=== PATIENT | male | born 1975 | race Caucasian/White ===

== ENCOUNTER 2018-02-17 02:14 | Emergency (ER) | payer OTHER, SELFPAY ==
[2018-02-17 02:16] VITALS: BP 183/106; PULSE 61; RESP 16; TEMP 36.2; O2SAT 97; BMI 35.4
--- NOTE | 2018-02-17 02:17 | ED.RN ---
CALLED FOR EKG PER RN REQUEST, PULLED OLD EKG'S FOR
--- NOTE | 2018-02-17 02:35 | RAD_ITS ---
STUDY: X-RAY CHEST REASON FOR EXAM: Male, 42 years old. Chest pain. TECHNIQUE: Single AP portable view of the chest. COMPARISON: Prior comparison studies are not available for review at this time. FINDINGS: Cardiac monitoring leads are present. The lungs are expanded. There is mild prominence of bronchovascular markings. There is no demonstrated pleural abnormality. There is borderline cardiomegaly. Normal mediastinum and rosemarie. There is prominence of the pulmonary hilar arteries with peripheral pulmonary vascular congestion. Normal visualized aortic arch and descending thoracic aorta. There are diffuse degenerative changes of the visualized thoracic spine. There mild degenerative changes at the right acromioclavicular joint. There is no demonstrated abnormality of the visualized soft tissue structures of the upper abdomen. RAD/Chest 1 View (Portable) IMPRESSION: Borderline cardiomegaly and mild pulmonary congestion. Electronically Signed: Daisy Concepcion MD at 3:23 EDT , Service support ,
--- NOTE | 2018-02-17 02:35 | EKG12_ITS ---
Test Reason : CP Blood Pressure : / mmHG Vent. Rate : 062 BPM Atrial Rate : 062 BPM P-R Int : 116 ms QRS Dur : 106 ms QT Int : 406 ms P-R-T Axes : 043 072 053 degrees QTc Int : 412 ms Normal sinus rhythm Normal ECG Confirmed by RONAK LAMB, YEIMY ([id number]), senior editor JOSÉ GAGE ([id number]) on 02/19/2018 1:04:39 PM Referred By: CONRAD Confirmed By:YEIMY SIMONS MD
--- NOTE | 2018-02-17 02:38 | ED.DCSUM_ITS ---
- ER Visit Summary Date of Service: 02/17/18 Chief Complaint: [Chest pain] History of Present Illness: The patient is a 42 M [who presents the emergency department with chest pain. It started about an hour and half ago. He describes as a tightness in his epigastric region that spread up through his chest. Nothing makes it worse nothing makes it better no nausea or vomiting no shortness of breath no lightheadedness or dizziness. He has had the similar symptoms in the past with gastritis and was treated with a GI cocktail and got better. He denies any health problems. He does smoke. He ate a burger with jalapenos and alcohol for dinner.] Physical Examination: [] Blood pressure 183/106 other vitals within acceptable limits WN WD NAD PERRL EOMI MMM NECK supple and nontender, no masses RRR no murmur rub or gallop, no peripheral edema, symmetric radial pulses CTAB no respiratory distress ABDOMEN is soft mild tenderness to palpation in the epigastric region, normal bowel sounds, no distension, no rebound or guarding SKIN is warm and dry no rashes Alert and Oriented x3, CN II-XII in tact, no motor or sensory deficits, gait normal No lymphadenopathy Test Results: [] Emergency Department Course and Treatment: [Patient's EKG shows no acute process. He was given aspirin. He was given a GI cocktail. His pain did resolve. It was more consistent with epigastric abdominal pain rather than chest pain. He had similar pain several years ago and was seen in the emergency department got better with a GI cocktail the GI cocktail did help him today as well. He did have a leukocytosis at 15.2 looking back at his previous labs that he had a leukocytosis of 13.2 at that time. He has no right upper quadrant pain nothing to suggest acute cholecystitis and on reevaluation should his abdomen is completely nontender. Chest x-ray was unremarkable. Repeat troponin was obtained and was normal as well. At this time I do think he can be discharged on Prilosec. We discussed the fact that his heart was borderline enlarged and his blood pressure was quite high while he was here he understands the necessity of following up with his primary care doctor next week. He was given precautions for which to return including fever worsening abdominal pain right upper quadrant abdominal pain or other concerns. He is understands and is agreeable.] Treatment Plan: [] Disposition: [Discharge] Impression: [Epigastric abdominal pain] This note was generated with [employer] dictation software. It may contain incorrect words, spelling, and punctuation that were not noted in review of the chart prior to signing ED Disposition - Plan for ED Patient: Chief Complaint: Chest Pain Referrals: Jermaine Carey DO [Primary Care Provider] -
[2018-02-17] MEDS: Aspirin 81 MG TAB.CHEW 324 MG PO (02:40)
[2018-02-17 02:45] LABS: Absolute Lymphocyte Count 4.49 X10^3/ul (0.83-4.51); Absolute Neutrophil Count 9.1 X10^3/uL (2.0-7.7); Basophil# 0.04 X10^3/uL; Basophil% 0.3 % (0-1); Eosinophil# 0.28 X10^3/uL; Eosinophils% 1.8 % (0-5); Hematocrit 42.9 % (40-54); Hemoglobin 14.1 g/dl (13.0-16.5); Lymphocyte # 4.49 X10^3/ul (4.0); Lymphocyte % 29.5 % (19-41); Mean Corp Hgb Conc 32.9 g/gl (32-36); Mean Corpuscular Hgb 27.5 pg (27.0-32.0); Mean Corpuscular Volume 83.6 fL (80-94); Mean Platelet Vol. 9.6 fl (6.2-12.0); Monocyte# 1.28 X10^3/uL; Monocyte% 8.4 % (0-10); Neutrophil # 9.09 X10^3/uL (2.7-7.7); Neutrophil % 59.7 % (47-70); Platelet Count 342 K/mm3 (150-450); RBC Distribution Width SD 48.7 fl (35.1-43.9); Red Blood Count 5.13 M/mm3 (4.6-6.2); White Blood Count 15.2 K/mm3 (4.4-11.0)
[2018-02-17 02:58] LABS: AST(SGOT) 13 U/L (15-37); Alanine Aminotransfer ALT/SGPT 26 U/L (16-61); Alkaline Phosphatase 86 U/L (45-117); Anion Gap 3 (5-15); BUN 18 mg/dL (7-18); BUN/Creat Ratio 19.7 RATIO (10-20); Calcium,Total 8.7 mg/dL (8.5-10.1); Chloride 106 mmol/L (98-107); Creatinine, Serum 0.91 mg/dL (0.70-1.30); EST Glomerular Filtration Rate 97 mL/min (>60); Est Glom Filt Rate - Afr Amer 117 mL/min (>60); Estimated Creatinine Clearance 102.31 ml/min; Globulin 4.1 g/dL (2.2-4.2); Glucose 127 mg/dL (74-106); Lipase 256 U/L (73-393); Potassium 3.6 mmol/L (3.5-5.1); Protein, Total 8.1 g/dL (6.4-8.2); Sodium Level 139 mmol/L (136-145)
[2018-02-17 03:03] LABS: POSITIVE COUNT NO; POSITIVE DIFFERENTIAL NO; POSITIVE MORPHOLOGY NO
[2018-02-17 03:32] VITALS: BP 173/82; PULSE 58; RESP 20; O2SAT 95
[2018-02-17] MEDS: Famotidine 20 MG Tablet 40 MG PO (04:33)
[2018-02-17 04:37] VITALS: BP 167/81; PULSE 66; RESP 18; O2SAT 96
[2018-02-17 05:25] VITALS: BP 136/82; PULSE 59; RESP 17; O2SAT 95
--- NOTE | 2018-02-17 05:25 | ED.DEP ---
ED Disposition - Plan for ED Patient: Chief Complaint: Chest Pain Instructions: What Is High Blood Pressure?, Your High Blood Pressure Risk Factors, ED Epigastric Pain [facility] Prescriptions: Omeprazole/Sodium Bicarbonate [Omeprazole-Bicarb 20-1,100 Cap] 1 each PO DAILY #30 capsule Referrals: Jermaine Carey DO [Primary Care Provider] - 3-5 Days
--- NOTE | 2018-02-17 05:29 | DCINST.ED_ITS ---
ED Disposition - Plan for ED Patient: Chief Complaint: Chest Pain Instructions: What Is High Blood Pressure?, Your High Blood Pressure Risk Factors, ED Epigastric Pain [facility] Prescriptions: Omeprazole/Sodium Bicarbonate [Omeprazole-Bicarb 20-1,100 Cap] 1 each PO DAILY # 30 capsule Referrals: Jermaine Carey DO [Primary Care Provider] - 3-5 Days
== END 2018-02-17 05:31 | disposition home or self-care (01) ==
PROVIDERS: Emergency Provider Emergency Medicine; Family Provider Family Medicine; PCP Family Medicine
DX: R10.13 Epigastric pain (principal); I10 Essential (primary) hypertension; E66.9 Obesity, unspecified; Z72.0 Tobacco use; Z79.899 Other long term (current) drug therapy; Z87.19 Personal history of other diseases of the digestive system
CPT/HCPCS: 71045; 80053; 83690; 84484; 85025; 93005; 99284; A4216

== ENCOUNTER 2018-12-11 18:08 | Emergency (ER) | payer OTHER, SELFPAY ==
[2018-12-11 18:09] VITALS: BP 168/84; PULSE 78; RESP 16; TEMP 36.3; O2SAT 98; BMI 34.9
--- NOTE | 2018-12-11 18:25 | EKG12_ITS ---
Test Reason : CP Blood Pressure : / mmHG Vent. Rate : 063 BPM Atrial Rate : 063 BPM P-R Int : 122 ms QRS Dur : 106 ms QT Int : 424 ms P-R-T Axes : 073 081 072 degrees QTc Int : 433 ms Normal sinus rhythm Normal ECG Confirmed by MICHELLE HARTMAN ([id number]), continuity editor JOSÉ GAGE ([id number]) on 12/16/2018 2:48:36 PM Referred By: CHAVEZ Confirmed By:GAUDENCIO HARTMAN
--- NOTE | 2018-12-11 18:30 | RAD_ITS ---
STUDY: X-RAY CHEST REASON FOR EXAM: Male, 43 years old. Chest pain since this a.m. TECHNIQUE: Single frontal view of the chest. COMPARISON: February 17, 2018. FINDINGS: There is a vague opacity within the right lower lung. Normal size heart. Normal mediastinum and rosemarie. Normal visualized pulmonary arteries. Normal visualized aortic arch and descending thoracic aorta. There are diffuse degenerative changes of the visualized thoracic spine. Normal visualized ribs, clavicles, and shoulders. There is no demonstrated abnormality of the visualized soft tissue structures of the upper abdomen. RAD/Chest 1 View (Portable) IMPRESSION: Vague opacity within the right lower lung, may be secondary to a confluence of shadows however cannot exclude underlying atelectasis and/or evolving pneumonia. Electronically Signed: Steph Lemons MD at 18:50 EDT Tel , Service support ,
[2018-12-11 18:32] VITALS: O2SAT 98
[2018-12-11] MEDS: Mag Hydrox/Al Hydrox/Simeth 30 ML UDC PO (18:40)
[2018-12-11 18:48] LABS: Absolute Lymphocyte Count 1.47 X10^3/ul (0.83-4.51); Absolute Neutrophil Count 16.3 X10^3/uL (2.0-7.7); Basophil# 0.01 X10^3/uL; Basophil% 0.1 % (0-1); Hematocrit 42.6 % (40-54); Hemoglobin 14.1 g/dl (13.0-16.5); Lymphocyte # 1.47 X10^3/ul (4.0); Lymphocyte % 7.7 % (19-41); Mean Corp Hgb Conc 33.1 g/gl (32-36); Mean Corpuscular Hgb 26.1 pg (27.0-32.0); Mean Corpuscular Volume 78.9 fL (80-94); Mean Platelet Vol. 9.3 fl (6.2-12.0); Monocyte# 1.18 X10^3/uL; Monocyte% 6.2 % (0-10); Neutrophil # 16.34 X10^3/uL (2.7-7.7); Neutrophil % 85.8 % (47-70); Platelet Count 335 K/mm3 (150-450); RBC Distribution Width CV 14.9 % (11.6-14.6)
[2018-12-11 18:49] LABS: POSITIVE COUNT NO; POSITIVE DIFFERENTIAL NO; POSITIVE MORPHOLOGY NO
[2018-12-11 19:08] LABS: ALB/GLOB Ratio 1.1 RATIO (0.9-2.4); AST(SGOT) 51 U/L (15-37); Alanine Aminotransfer ALT/SGPT 36 U/L (16-61); Alkaline Phosphatase 86 U/L (45-117); Anion Gap 5 (5-15); BUN 13 mg/dL (7-18); BUN/Creat Ratio 16.8 RATIO (10-20); Calcium,Total 8.7 mg/dL (8.5-10.1); Chloride 101 mmol/L (98-107); Creatinine, Serum 0.78 mg/dL (0.70-1.30); EST Glomerular Filtration Rate 116 mL/min (>60); Est Glom Filt Rate - Afr Amer 141 mL/min (>60); Estimated Creatinine Clearance 118.14 ml/min; Globulin 3.7 g/dL (2.2-4.2); Glucose 116 mg/dL (74-106); Lipase 165 U/L (73-393); Potassium 3.9 mmol/L (3.5-5.1); Protein, Total 7.7 g/dL (6.4-8.2); Sodium Level 135 mmol/L (136-145)
--- NOTE | 2018-12-11 19:52 | ED.VISSUMM ---
- ER Visit Summary Date of Service: 12/11/18 Chief Complaint: Chest pain History of Present Illness: The patient is a 43 M who presents with chest pain that started this morning when he woke up. It is substernal and epigastric. He says he had this before. He was seen in the ED and treated with a GI cocktail and his symptoms improved. He was prescribed Nexium for reflux. He has not been compliant with his meds as he ran out. Patient denies any respiratory symptoms, cough, sputum, shortness of breath. Denies fevers, chills, or sweats. Denies lightheadedness. Denies neurologic symptoms like weakness, numbness, vision changes, facial droop. Denies any masses or history of aortic disease. Denies any history of blood clots. Denies any history of heart disease or heart attack. History of smoking, alcohol use, and prior methamphetamine use. Physical Examination: Blood pressure 168/84. Otherwise vitals unremarkable. Afebrile. Patient appears uncomfortable but not toxic or in distress. Cranial nerves grossly intact. Moves all extremities. Good pulses. Extremities nontender with no edema. Abdomen is tender in the epigastric region. No masses. Heart regular. Lungs clear. Test Results: EKG showed sinus rhythm at a rate of 63. Troponin normal. White count 19, it was previously 15. He said it is normally elevated. Sodium 135 and glucose 116. Liver panel and lipase normal. Chest x-ray showed a vague opacity in the right lower lobe which might be a shadow or evolving atelectasis or pneumonia. Patient is not having any respiratory symptoms or findings. I have no suspicion for pneumonia. Emergency Department Course and Treatment: Patient was treated with a GI cocktail as this has worked in the past. His symptoms had almost completely resolved. He also was treated with famotidine. I suspect this is gastritis or reflux. There is nothing on exam to suggest cardiac or respiratory pathology. Nothing to suggest vascular pathology based on his findings. Patient was advised that he needs to follow-up regarding his chronic issues and his leukocytosis. He voiced understanding and agreement. He was also advised of the risk factors of smoking and stimulant drug use. Treatment Plan: As above Disposition: Discharge Impression: 1. Epigastric pain This note was generated with [employer] software. It may contain incorrect words, spelling, and punctuation that were not noted in review of the chart prior to signing ED Disposition - Plan for ED Patient: Referrals: Jermaine Carey DO [Primary Care Provider] -
--- NOTE | 2018-12-11 19:56 | ED.DEP ---
ED Disposition - Plan for ED Patient: Instructions: ED Epigastric Pain [facility] Prescriptions: Esomeprazole Magnesium [Nexium 24Hr] 20 mg PO DAILY #30 capsule. Referrals: Mai Carranza [NON-STAFF] -
[2018-12-11] MEDS: Famotidine 20 MG Tablet 40 MG PO (20:19)
[2018-12-11 20:21] VITALS: BP 151/67; PULSE 67; RESP 18; O2SAT 97
== END 2018-12-11 20:22 | disposition home or self-care (01) ==
PROVIDERS: Emergency Provider Emergency Medicine; Family Provider Family Medicine; PCP Family Medicine
DX: R10.13 Epigastric pain (principal); K21.9 Gastro-esophageal reflux disease without esophagitis; Z91.14 Patient's other noncompliance with medication regimen; Z72.0 Tobacco use; Z79.899 Other long term (current) drug therapy
CPT/HCPCS: 71045; 80053; 83690; 84484; 85025; 93005; 99285; A4216

== ENCOUNTER 2020-10-13 04:54 | Inpatient (IN) | payer OTHER, SELFPAY ==
[2020-10-13] VITALS (7 sets, daily range): BP systolic 120–167; BP diastolic 87–116; PULSE 18–105; RESP 16–18; TEMP 35.7–37.3; O2SAT 94–100; BMI 31.1; BMI 31.3
--- NOTE | 2020-10-13 05:04 | CT_ITS ---
STUDY: CT ABDOMEN AND PELVIS WITH CONTRAST REASON FOR EXAM: Male, 44 years old. abdominal pain diarrhea ?diverticulitis RADIATION DOSAGE (If Supplied By Facility): CTDIvol = ( 17.11 ) mGy, DLP = ( 1063.11 ) mGycm TECHNIQUE: Transaxial images were obtained from the dome of the diaphragm to the symphysis pubis without oral contrast. IV 100mL Isovue-300 was administered. Sagittal and coronal images were reconstructed. Individualized dose optimization techniques were used for this CT. COMPARISON: None. FINDINGS: The visualized lung bases are unremarkable. The visualized portions of the heart are within normal limits. Normal liver. Normal gallbladder and extrahepatic biliary system. Normal spleen. Normal pancreas. Normal bilateral adrenal glands. Normal right kidney. Normal left kidney. Normal visualized stomach. Multiple dilated loops of small bowel within the central abdomen. Some more normal-appearing distal loops of small bowel. Unsure if this represents early small bowel obstruction versus ileus. Normal colon. The appendix is visualized and appears normal. Normal abdominal aorta. Normal inferior vena cava. Normal retroperitoneum. Normal urinary bladder. Unremarkable prostate Normal abdominal wall. Normal osseous structures. CT/Abdomen/Pelvis W IV Cont ONLY IMPRESSION: Multiple dilated loops of small bowel within the central abdomen. Some more normal-appearing distal loops of small bowel. Findings are concerning for developing small bowel obstruction. No evidence of diverticulitis. Normal appendix. Electronically Signed: Juan Carlos Arreola DO at 6:32 EDT Tel , Service support ,
--- NOTE | 2020-10-13 05:05 | ED.DCSUM_ITS ---
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 The diarrhea has just about resolved now. He notes more nausea but no vomiting. He was able to go to work yesterday but tonight bending over at work was too painful. He denies any bloody stools. He notes a history of diverticulitis 1 time about 8 years ago. No prior abdominal surgeries. No history of pancreatitis. He notes nausea and episode of vomiting. He states the diarrhea was not mucousy. He believes he has had fever as he gets really hot and sweaty at times. A bad food exposure travel or recent antibiotics. He describes the pain is crampy in most of his pain is in the epigastrium and left lower side of his abdomen Past Medical History - Allergies and Home Meds Allergies/Adverse Reactions: Allergies No Known Allergies Allergy (Verified 10/13/20 04:57) Primary Care Physician: NOT,DEFINED [NON-STAFF] - Past Medical History: - - Diverticulitis Surgical History: noncontributory Smoking Status: Current every day smoker Drugs: None Review of Systems General: Denies: Chills, Fever, Sweats Eyes: Denies: Visual changes - bilaterally, Diplopia ENT: Denies: Rhinorrhea, Sore throat Cardiovascular: Denies: Chest pain, Palpitations Respiratory: Denies: Dyspnea, Cough, Dyspnea on exertion Gastrointestinal: Reports: Abdominal pain, Nausea, Vomiting, Diarrhea. Denies: Melena, Hematochezia Genitourinary: Denies: Dysuria, Hematuria, Frequency Musculoskeletal: Denies: Back pain, Extremity Pain Skin: Denies: Rash, Wounds Neurological: Denies: Headache, Weakness, Numbness Physical Exam Vital Signs/Narrative: Vital Signs Temp Pulse Resp BP Pulse Ox 10/13/20 04:54 96.2 F L 86 18 143/94 H 98 Inital Vital Signs reviewed: Yes General: Well nourished, Well developed, No Acute Distress Head: Normocephalic, Atraumatic Eyes: Perrl, EOMI ENT: Moist mucous membranes, No rhinorrhea Neck: Supple, Nontender Cardiovascular: Regular rate, Regular rhythm, No murmurs Respiratory: No distress, CTA bilaterally, Chest nontender Abdomen: Soft, Nondistended, Normal bowel sounds, Tender - Diffusely but most pronounced in the left lower quadrant and epigastrium, Guarding, Hypoactive bowel sounds Back: Nontender, Normal Inspection Extremities: Nontender, No edema Skin: Normal color, No rash Neurological: Alert, Oriented x3, Cranial nerves II-XII grossly intact, Normal Strength, Normal Sensation Psychological: Normal affect, Normal Mood Diagnostic/Tx/Re-eval Clinical Impression(s) from Imaging Studies Abdomen/Pelvis CT 10/13/20 05:04 IMPRESSION: Multiple dilated loops of small bowel within the central abdomen. Some more normal-appearing distal loops of small bowel. Findings are concerning for developing small bowel obstruction. No evidence of diverticulitis. Normal appendix. Electronically Signed: Juan Carlos Arreola DO at 6:32 EDT Tel , Service support , Laboratory Last Values WBC 11.7 K/mm3 (4.4-11.0) H 10/13/20 05:04 RBC 6.15 M/mm3 (4.6-6.2) 10/13/20 05:04 Hgb 16.0 g/dL (13.0-16.5) 10/13/20 05:04 Hct 50.6 % (40-54) 10/13/20 05:04 MCV 82.3 fL (80-94) 10/13/20 05:04 MCH 26.0 pg (27.0-32.0) L 10/13/20 05:04 MCHC 31.6 g/dL (32-36) L 10/13/20 05:04 RDW Std Deviation 45.7 fl (35.1-43.9) H 10/13/20 05:04 RDW Coeff of King 15.2 % (11.6-14.6) H 10/13/20 05:04 Plt Count 354 K/mm3 (150-450) 10/13/20 05:04 MPV 8.7 fl (6.2-12.0) 10/13/20 05:04 Immature Gran % (Auto) 0.300 % (0.0-0.9) 10/13/20 05:04 Neut % (Auto) 74.7 % (47-70) H 10/13/20 05:04 Lymph % (Auto) 15.7 % (19-41) L 10/13/20 05:04 [place] % (Auto) 8.4 % (0-10) 10/13/20 05:04 Eos % (Auto) 0.6 % (0-5) 10/13/20 05:04 Baso % (Auto) 0.3 % (0-1) 10/13/20 05:04 Absolute Neuts (auto) 8.7 X10^3/uL (2.0-7.7) H 10/13/20 05:04 Absolute Lymphs (auto) 1.83 X10^3/uL (0.83-4.51) 10/13/20 05:04 Nucleated RBC % 0 % (0-5) 10/13/20 05:04 Sodium 135 mmol/L (136-145) L 10/13/20 05:04 Potassium 4.1 mmol/L (3.5-5.1) 10/13/20 05:04 Chloride 101 mmol/L (98-107) 10/13/20 05:04 Carbon Dioxide 31.0 mmol/L (21.0-32.0) 10/13/20 05:04 Anion Gap 3 (5-15) L 10/13/20 05:04 BUN 15 mg/dL (7-18) 10/13/20 05:04 Creatinine 0.93 mg/dL (0.70-1.30) 10/13/20 05:04 Estim Creat Clear Calc 98.06 ml/min 10/13/20 05:04 Est GFR (MDRD) Af Amer 113 mL/min (>60) 10/13/20 05:04 Est GFR (MDRD) Non-Af 94 mL/min (>60) 10/13/20 05:04 BUN/Creatinine Ratio 16.1 RATIO (10-20) 10/13/20 05:04 Glucose 112 mg/dL (74-106) H 10/13/20 05:04 Lactic Acid 0.8 mmol/L (0.4-1.9) 10/13/20 05:04 Calcium 9.0 mg/dL (8.5-10.1) 10/13/20 05:04 Total Bilirubin 0.50 mg/dL (0.20-1.00) 10/13/20 05:04 AST 15 U/L (15-37) 10/13/20 05:04 ALT 32 U/L (16-61) 10/13/20 05:04 Alkaline Phosphatase 84 U/L (45-117) 10/13/20 05:04 Total Protein 8.1 g/dL (6.4-8.2) 10/13/20 05:04 Albumin 3.6 g/dL (3.2-5.0) 10/13/20 05:04 Globulin 4.5 g/dL (2.2-4.2) H 10/13/20 05:04 Albumin/Globulin Ratio 0.8 RATIO (0.9-2.4) L 10/13/20 05:04 Lipase 80 U/L (73-393) 10/13/20 05:04 - Medical Decision Making White count slightly elevated at 11.7. Lactic acid is normal. Patient received IV fluids morphine and Zofran. CT down pelvis with IV contrast was obtained. This demonstrates my review acute small bowel obstruction with a probable transition point in the lower abdomen near the sigmoid colon. Question scar tissue from prior diverticulitis. I also have a concerned that perhaps he has a mild case of sigmoid diverticulitis. Case was discussed with our on-call surgeon Dr. Mcleod. NG tube will be placed and the patient will be given Zosyn. Plan will be admission. ED Disposition - Plan for ED Patient: Disposition: Acute Care Hospital [facility] Diagnosis: Small bowel obstruction, Diverticulitis Referrals: NOT,DEFINED [NON-STAFF] -
[2020-10-13 05:11] LABS: Absolute Lymphocyte Count 1.83 X10^3/uL (0.83-4.51); Absolute Neutrophil Count 8.7 X10^3/uL (2.0-7.7); Basophil# 0.03 X10^3/uL; Basophil% 0.3 % (0-1); Eosinophil# 0.07 X10^3/uL; Eosinophils% 0.6 % (0-5); Hematocrit 50.6 % (40-54); Lymphocyte # 1.83 X10^3/ul (4.0); Lymphocyte % 15.7 % (19-41); Mean Corp Hgb Conc 31.6 g/dL (32-36); Mean Corpuscular Volume 82.3 fL (80-94); Mean Platelet Vol. 8.7 fl (6.2-12.0); Monocyte# 0.98 X10^3/uL; Monocyte% 8.4 % (0-10); NRBC Flagged by Analyzer 0 % (0-5); Neutrophil # 8.73 X10^3/uL (2.7-7.7); Neutrophil % 74.7 % (47-70); Platelet Count 354 K/mm3 (150-450); RBC Distribution Width CV 15.2 % (11.6-14.6); RBC Distribution Width SD 45.7 fl (35.1-43.9); Red Blood Count 6.15 M/mm3 (4.6-6.2); White Blood Count 11.7 K/mm3 (4.4-11.0)
[2020-10-13] MEDS: 0.9% Normal Saline 1,000 ML 1000 ML IV (05:12)
[2020-10-13] MEDS: Morphine 4 MG/ML Syringe IV (05:13)
[2020-10-13] MEDS: Ondansetron 4 MG/2 ML Vial IV (05:13)
[2020-10-13 05:27] LABS: ALB/GLOB Ratio 0.8 RATIO (0.9-2.4); AST(SGOT) 15 U/L (15-37); Alanine Aminotransfer ALT/SGPT 32 U/L (16-61); Albumin, Serum 3.6 g/dL (3.2-5.0); Alkaline Phosphatase 84 U/L (45-117); Anion Gap 3 (5-15); BUN 15 mg/dL (7-18); BUN/Creat Ratio 16.1 RATIO (10-20); Chloride 101 mmol/L (98-107); Creatinine, Serum 0.93 mg/dL (0.70-1.30); EST Glomerular Filtration Rate 94 mL/min (>60); Est Glom Filt Rate - Afr Amer 113 mL/min (>60); Estimated Creatinine Clearance 98.06 ml/min; Globulin 4.5 g/dL (2.2-4.2); Glucose 112 mg/dL (74-106); Lipase 80 U/L (73-393); Potassium 4.1 mmol/L (3.5-5.1); Protein, Total 8.1 g/dL (6.4-8.2); Sodium Level 135 mmol/L (136-145)
--- NOTE | 2020-10-13 05:40 | ED.RN ---
Patient reports he last ate AND drank approx 1 hour ago.
[2020-10-13 05:55] LABS: Lactic Acid 0.8 mmol/L (0.4-1.9)
--- NOTE | 2020-10-13 06:52 | RAD_ITS ---
STUDY: X-RAY - ABDOMEN/PELVIS REASON FOR EXAM: Male, 44 years old. NG Insertion TECHNIQUE: Single AP view of the abdomen / pelvis. COMPARISON: None. FINDINGS: Normal visualized lung bases. The tip of the nasogastric tube is in the fundal portion of the stomach. There are dilated loops of the small intestine with a non-distended colon consistent with a small bowel obstruction. The visualized liver, spleen and kidneys are grossly normal in size and morphology. Normal soft tissue structures. Normal visualized osseous structures. RAD/Abdomen Single View (Portable) IMPRESSION: The tip of the nasogastric tube is in the fundal portion of the stomach. Evidence of small bowel obstruction. Electronically Signed: Jan Donahue MD at 8:19 EDT , Service support ,
--- NOTE | 2020-10-13 06:53 | NURSING ---
med surg sbo diverticulitis ele
[2020-10-13] MEDS: Lidocaine 4% 5 ML Ampul 2 ML INHALATION (07:13)
[2020-10-13] MEDS: Oxymetazoline 0.05% 1 SPRAY SPRAY.BTL 2 SPRAY NASAL (07:18)
--- NOTE | 2020-10-13 07:30 | PCM.HP.STD ---
Problem List (1) Small bowel obstruction Status: Acute History of Present Illness Date of Admission: 10/13/20 Chief Complaint: Abdominal pain The patient is a 44 year old M presented to the emergency room with pain since yesterday. He reports the pain is diffuse and in his upper abdomen. Patient reports he is not passing flatus. He is not having any vomiting. Patient does have a history of diverticulitis. Patient has no surgical history. Past Medical History Allergies No Known Allergies Allergy (Verified 10/13/20 04:57) Home Medications: Ambulatory Orders Medication Instructions Recorded NK 10/13/20 Surgical History: noncontributory Smoking Status: Current every day smoker Drugs: None - *Family History Maternal History Items: No pertinent history Review of Systems Constitutional: Denies: Anorexia, Fever HEENT: Denies: Difficulty Swallowing Cardiovascular: Denies: Chest Pain Respiratory: Denies: Cough, Shortness of Breath Gastrointestinal: Reports: Abdominal Pain, Nausea. Denies: Hematemesis, Hematochezia, Vomiting Genitourinary: Denies: Dysuria, Frequency Hematologic/ Lymphatic: Denies: Anemia VTE Information - Inpt Only VTE Present on Admission: No VTE Mechan Device Prophylaxis: SCD's - Physical Exam Vitals/I&O's: Vital Signs Temp Pulse Resp BP Pulse Ox 97.7 F L 97 18 144/89 H 100 10/13/20 07:19 10/13/20 07:19 10/13/20 07:19 10/13/20 07:19 10/13/20 07:19 Oxygen Delivery Method Room Air Weight: 204 lb 12.951 oz Body Mass Index (BMI) 31.1 Intake and Output for Last 24 Hours 10/11/20 10/12/20 10/13/20 23:59 23:59 23:59 Intake Total 1000 / 1000 Balance 1000 / 1000 General: Alert, Oriented x3 Neck: No JVD Lungs: Normal air movement Cardiovascular: Regular rate, Regular Rhythm Abdomen: Soft, Distended, Tender - Diffusely mildly tender with no guarding or rebound Musculoskeletal: No Muscle Wasting Neurological: Cranial nerves II-XII grossly intact Psych/Mental Status: Normal Affect Laboratory Results 10/13/20 05:04: WBC 11.7 H, RBC 6.15, Hgb 16.0, Hct 50.6, MCV 82.3, MCH 26.0 L, MCHC 31.6 L, RDW Std Deviation 45.7 H, RDW Coeff of King 15.2 H, Plt Count 354, MPV 8.7, Immature Gran % (Auto) 0.300, Neut % (Auto) 74.7 H, Lymph % (Auto) 15.7 L, [place] % (Auto) 8.4, Eos % (Auto) 0.6, Baso % (Auto) 0.3, Absolute Neuts (auto) 8.7 H, Absolute Lymphs (auto) 1.83, Nucleated RBC % 0 10/13/20 05:04: Sodium 135 L, Potassium 4.1, Chloride 101, Carbon Dioxide 31.0, Anion Gap 3 L, BUN 15, Creatinine 0.93, Estim Creat Clear Calc 98.06, Est GFR (MDRD) Af Amer 113, Est GFR (MDRD) Non-Af 94, BUN/Creatinine Ratio 16.1, Glucose 112 H, Calcium 9.0, Total Bilirubin 0.50, AST 15, ALT 32, Alkaline Phosphatase 84, Total Protein 8.1, Albumin 3.6, Globulin 4.5 H, Albumin/Globulin Ratio 0.8 L, Lipase 80 10/13/20 05:04: Lactic Acid 0.8 Clinical Impression(s) from Imaging Studies Abdomen/Pelvis CT 10/13/20 05:04 IMPRESSION: Multiple dilated loops of small bowel within the central abdomen. Some more normal-appearing distal loops of small bowel. Findings are concerning for developing small bowel obstruction. No evidence of diverticulitis. Normal appendix. Electronically Signed: Juan Carlos Arreola DO at 6:32 EDT Tel , Service support , Current Medications Sodium Chloride () 1,000 mls @ 125 mls/hr IV .Q8H JOB Pantoprazole Sodium 40 mg/ (Sodium Chloride) 110 mls @ 330 mls/hr IV Q24 JOB Piperacillin Sod/Tazobactam (Sod 3.375 gm/ Sodium Chloride) 50 mls @ 12.5 mls/hr IV Q8 JOB Morphine Sulfate (Morphine 2 Mg/Ml Syringe) 2 - 4 mg IV Q2H PRN PRN PRN Reason: Pain Score 4-10 Ondansetron HCl (Ondansetron 4 Mg/2 Ml Vial) 4 mg IV Q6H PRN PRN PRN Reason: NAUSEA Assessment/Plan All Active Problems Small bowel obstruction (Acute) Diverticulitis (Acute) 44-year-old male with small bowel obstruction. The patient has a mildly elevated white count and nausea and distention abdominal pain. CT revealed multiple loops of distended small bowel. After review the CT scan does appear there may be some mild stranding around the sigmoid colon and then transition point of the small bowel is in the right lower quadrant. This loop of small bowel appears to be in close proximity to the sigmoid colon. It is possible that the patient has diverticulitis and the inflammation of the sigmoid is causing tension on the small bowel causing this partial to full small bowel obstruction. I am having the ER placed an NG tube and for decompression and I will start the patient on Zosyn. I will admit him to the floor for observation and continue NG suctioning. If the patient is feeling better I will try a small bowel follow-through tomorrow morning and if this is not passed through the colon I will perform an exploratory laparoscopy tomorrow afternoon. This was discussed with the patient and the patient is in agreement with the plan. Latrell Mcleod MD Pager: [facility] [address] [place] [address], [address] [place] [address] Office:
--- NOTE | 2020-10-13 07:51 | ED.RN ---
PT X-RAY COMPLETED. REVIEWED BY DR CONRAD AT BEDSIDE. REPORTS TO WITHDRAW NG APPROXIMATELY 5 CM. ORDERS FOLLOWED. NG WITHDRAWN 5 CM. RESECURED WITH NASAL SECURING DEVICE. PT TOLERATED WELL. NG CONTINUES TO DRAIN GREENISH/BROWN CONTENTS.
[2020-10-13] MEDS: 0.9% Normal Saline 1,000 ML 125 ML IV ×3 (08:36→21:51)
[2020-10-13] MEDS: Morphine 2 MG/ML Syringe IV ×2 (08:37→21:48)
--- NOTE | 2020-10-13 11:52 | NURSING ---
PT RESTING QUIETLY IN BED WITH EYES CLOSED, RESP EASY
--- NOTE | 2020-10-13 12:08 | NURSING ---
Nito NUÑEZ PHONED IN FOR UPDATE ON PT
--- NOTE | 2020-10-13 13:00 | CASEMGMT ---
ALLY DAVIS assessment: Face to Face with pt for initial transition planning/care coordination assessment. ALLY DAVIS introduced self and role at [facility], pt voices understanding and consents to assessment. Pt laying in bed with eyes closed throughout assessment. Pt is A/O x4 and answers all questions appropriately at this time. Care providers, pharmacy, and demographics verified/updated. Admitting dx: SBO PCP: Pt does currently have a PCP. PCP directory given to pt. Specialists: Pt denies having specialists. Preferred Pharmacy: [facility] Insurance: MMO Presciption Benefit: yes LW/HPOA: Pt states he does not have and denies need for information regarding AD. LNOK: mother Sangita Kaufman Living Arrangements: Pt lives in a home with his mother. Denies any concerns at home. Transportation: Pt drives self and denies concerns with transportation. DME/HHC: Pt denies having any DME at home. Pt has not had HHC in the past. Pt states no further concerns/needs. CM to follow any further dc planning/needs. Advised pt to ask CM if any further question/concerns/needs arise, voices understanding. Pt goal: Home Plan: Home with family support and fu plans in place.
[2020-10-13] MEDS: BENZOCAINE/MENTHOL 1 LOZENGE 2 LOZENGE MUCOUS MEM (21:34)
[2020-10-13] MEDS: 0.9% Saline Lock 10 ML Syringe IV (21:48)
[2020-10-14] VITALS (11 sets, daily range): BP systolic 136–151; BP diastolic 77–99; PULSE 65–111; RESP 16–18; TEMP 36.1–36.9; O2SAT 94–97; BMI 31.3
[2020-10-14] MEDS: BENZOCAINE/MENTHOL 1 LOZENGE 2 LOZENGE MUCOUS MEM ×3 (00:55→21:45)
[2020-10-14] MEDS: Morphine 2 MG/ML Syringe IV ×3 (02:08→21:45)
[2020-10-14] MEDS: 0.9% Normal Saline 1,000 ML 125 ML IV ×3 (05:44→21:44)
[2020-10-14] MEDS: 0.9% Saline Lock 10 ML Syringe IV ×4 (05:45→21:44)
[2020-10-14 07:04] LABS: Absolute Lymphocyte Count 2.16 X10^3/uL (0.83-4.51); Absolute Neutrophil Count 6.5 X10^3/uL (2.0-7.7); Basophil# 0.03 X10^3/uL; Basophil% 0.3 % (0-1); Eosinophil# 0.08 X10^3/uL; Eosinophils% 0.8 % (0-5); Hematocrit 45.5 % (40-54); Hemoglobin 14.2 g/dL (13.0-16.5); Lymphocyte # 2.16 X10^3/ul (4.0); Lymphocyte % 22.4 % (19-41); Mean Corp Hgb Conc 31.2 g/dL (32-36); Mean Corpuscular Hgb 25.7 pg (27.0-32.0); Mean Corpuscular Volume 82.4 fL (80-94); Mean Platelet Vol. 9.1 fl (6.2-12.0); Monocyte# 0.87 X10^3/uL; NRBC Flagged by Analyzer 0 % (0-5); Neutrophil % 67.3 % (47-70); Platelet Count 322 K/mm3 (150-450); RBC Distribution Width CV 15.1 % (11.6-14.6); RBC Distribution Width SD 45.8 fl (35.1-43.9); Red Blood Count 5.52 M/mm3 (4.6-6.2); White Blood Count 9.7 K/mm3 (4.4-11.0)
--- NOTE | 2020-10-14 07:22 | PN.SURG_ITS ---
Patient Problems: Active and Suspected Problems Small bowel obstruction (Acute) Subjective: Patient reports no abdominal pain and he is passing flatus. - Physical Exam Vitals/I&O's: Vital Signs Temp Pulse Resp BP Pulse Ox 97.1 F L 87 18 136/77 H 97 10/14/20 01:57 10/14/20 01:57 10/14/20 01:57 10/14/20 01:57 10/14/20 01:57 Oxygen Delivery Method Room Air Weight: 205 lb 15.999 oz Body Mass Index (BMI) 31.3 Intake and Output for Last 24 Hours 10/12/20 10/13/20 10/14/20 23:59 23:59 23:59 Intake Total 3546.25 / 3546.25 1185.42 / 1185.42 Output Total 2059 / 2059 800 / 800 Balance 1486.25 / 1486.25 385.42 / 385.42 General: Alert, Oriented x3 Neck: No JVD Lungs: Normal air movement Abdomen: Soft, Non Tender, Non-Distended Microbiology Past 72 Hours 10/13/20 07:30 Mucosa - Nose SARS-CoV-2 Antigen (Rapid) - Final Laboratory Results 10/14/20 05:55: WBC 9.7, RBC 5.52, Hgb 14.2, Hct 45.5, MCV 82.4, MCH 25.7 L, MCHC 31.2 L, RDW Std Deviation 45.8 H, RDW Coeff of King 15.1 H, Plt Count 322, MPV 9.1, Immature Gran % (Auto) 0.200, Neut % (Auto) 67.3, Lymph % (Auto) 22.4, [place] % (Auto) 9.0, Eos % (Auto) 0.8, Baso % (Auto) 0.3, Absolute Neuts (auto) 6.5, Absolute Lymphs (auto) 2.16, Nucleated RBC % 0 10/14/20 05:55: Sodium Pending, Potassium Pending, Chloride Pending, Carbon Dioxide Pending, Anion Gap Pending, BUN Pending, Creatinine Pending, Est GFR (MDRD) Af Amer Pending, Est GFR (MDRD) Non-Af Pending, BUN/Creatinine Ratio Pending, Glucose Pending, Calcium Pending Current Medications Sodium Chloride () 1,000 mls @ 125 mls/hr IV .Q8H JOB Last Admin: 10/14/20 05:44 Dose: 125 mls/hr Documented by: Pantoprazole Sodium 40 mg/ (Sodium Chloride) 110 mls @ 330 mls/hr IV Q24 [facility] Last Infusion: 10/13/20 09:13 Dose: Infused Documented by: Piperacillin Sod/Tazobactam (Sod 3.375 gm/ Sodium Chloride) 50 mls @ 12.5 mls/hr IV Q8 [facility] Last Admin: 10/14/20 05:43 Dose: 12.5 mls/hr Documented by: Morphine Sulfate (Morphine 2 Mg/Ml Syringe) 2 - 4 mg IV Q2H PRN PRN PRN Reason: Pain Score 4-10 Last Admin: 10/14/20 05:44 Dose: 2 mg Documented by: Morphine Sulfate (Morphine 4 Mg/Ml Syringe) 2 - 4 mg IV Q2H PRN PRN PRN Reason: Pain Score 4-10 Ondansetron HCl (Ondansetron 4 Mg/2 Ml Vial) 4 mg IV Q6H PRN PRN PRN Reason: NAUSEA Sodium Chloride (0.9% Saline Lock 10 Ml Syringe) 10 - 40 ml IV UD PRN PRN Reason: SALINE FLUSH Last Admin: 10/14/20 05:45 Dose: 10 ml Documented by: Throat Lozenges (Benzocaine/Menthol 1 Lozenge) 2 lozenge MUCOUS MEM Q2H PRN PRN PRN Reason: SORE THROAT Last Admin: 10/14/20 05:44 Dose: 2 lozenge Documented by: Medical Necessity - Tobacco Use Smoking Status: Current every day smoker Assessment/Plan All Active Problems Small bowel obstruction (Acute) Diverticulitis (Acute) 44-year-old male with possible diverticulitis and bowel obstruction 1. Patient seems to be Improved today. He is passing flatus. His NG did have a copious amount of output and I have a small bowel follow-through scheduled for today. If the small bowel follow-through passes through to the colon I will order a clear liquid diet and advance as tolerated. If it does not advance I discussed performing laparoscopy this afternoon. Patient agrees with the treatment plan. Latrell Mcleod MD Pager: [facility] [address] [place] [address], [address] [place] [phone] Office:
[2020-10-14 07:50] LABS: Anion Gap 4 (5-15); BUN 13 mg/dL (7-18); BUN/Creat Ratio 14.2 RATIO (10-20); Calcium,Total 8.4 mg/dL (8.5-10.1); Chloride 106 mmol/L (98-107); Creatinine, Serum 0.92 mg/dL (0.70-1.30); EST Glomerular Filtration Rate 95 mL/min (>60); Est Glom Filt Rate - Afr Amer 115 mL/min (>60); Estimated Creatinine Clearance 99.13 ml/min; Glucose 93 mg/dL (74-106); Potassium 3.5 mmol/L (3.5-5.1); Sodium Level 141 mmol/L (136-145)
--- NOTE | 2020-10-14 10:35 | RAD_ITS ---
CLINICAL HISTORY: Male, 44 years old. PROCEDURE: CONSENT: SEDATION: FLUOROSCOPY TIME (if supplied): ( ) minutes/seconds TECHNIQUE: (All elements of maximal sterile barrier technique followed, including US elements as applicable) RAD/Small Bowel Series Only IMPRESSION: Electronically Signed: Jan Donahue MD at 15:01 EDT , Service support ,
--- NOTE | 2020-10-14 14:05 | EKG12_ITS ---
Test Reason : PRE OP Blood Pressure : / mmHG Vent. Rate : 083 BPM Atrial Rate : 083 BPM P-R Int : 132 ms QRS Dur : 104 ms QT Int : 376 ms P-R-T Axes : 068 082 066 degrees QTc Int : 441 ms Normal sinus rhythm Normal ECG When compared with ECG of 11-DEC-2018 18:12, No significant change was found Confirmed by KELLY LAMB, RAJEEV ([id number]), sound editor JACKSON WILCOX ([id number]) on 10/18/2020 11:03:00 AM Referred By: PERNELL Confirmed By:RAJEEV MENDOZA MD
--- NOTE | 2020-10-14 15:25 | PN_ITS ---
Progress Note The patient reports that he had 3 bowel movements this afternoon but he is still distended and he had a small bowel follow-through. I saw gas in the colon but not much contrast making it past the small bowel. The patient was reconnected to suction after coming back up to the floor and over 700 cc of green fluid was suctioned from his stomach. At this point I believe the patient at least has a partial small bowel obstruction. I recommended exploratory laparoscopy. I discussed exploratory laparoscopy with the patient in detail. I discussed the risks including but not limited to bleeding, infection, conversion to open surgery, bowel resection, injury to other organs surrounding the area such as the bladder, colon, other small bowel. The patient understands the risks and is willing to proceed with exploratory laparoscopy and possible bowel resection if necessary. Latrell Mcleod MD Pager: [facility] [address] [place] [address], [address] [place] [phone] Office: [place] Vital Signs/Narrative: Vital Signs Temp Pulse Resp BP Pulse Ox 10/14/20 12:51 98.4 F 85 18 151/81 H 95
--- NOTE | 2020-10-14 15:39 | NURSING ---
Marimar CANALES notified pt has a stud below lower lip, cannot take it out. States she thinks OR has a tool to remove it.
[2020-10-14] MEDS: Lactated Ringers 1,000 ML 100 ML IV ×2 (17:15→18:00)
[2020-10-14] MEDS: Bupivacaine Mpf 0.5% 30 ML VIAL (17:55)
--- NOTE | 2020-10-14 17:56 | OP.PCM_ITS ---
Problem List (1) Small bowel obstruction Status: Acute Report of Operation Date of Procedure: 10/14/20 Pre-Operative Diagnosis: Small bowel obstruction Post-Operative Diagnosis: Small bowel obstruction Surgery/Procedure Performed:: Exploratory laparoscopy with takedown of adhesions Description of Procedure: Patient was brought back to the operating room and general anesthesia was induce d. An incision was made superior to the umbilicus deep to the fascia which was elevated and incised. A finger sweep was performed and a port was placed into the abdomen and the abdomen was insufflated to 15 mmHg. The patient was placed in Trendelenburg position. The terminal ileum was identified and traced backward to a tight adhesion to the sigmoid colon causing a turn in the bowel and an internal hernia between small bowel and adhesions to the abdominal wall. The small bowel adhesions to the abdominal wall were taken down sharply. The more proximal small bowel was tightly adherent to the sigmoid colon. This was sharply divided. The small bowel appeared intact and it was run distally to proximally and there were no further turns or adhesions. It appeared widely patent and nonkinked. Attention was paid to the sigmoid colon. There was a small raw area of the sigmoid colon which did not appear inflamed. A 2-0 silk suture in a [id number] fashion was used to imbricate this area. Next the abdomen was irrigated and suctioned dry and both pieces of bowel were once again inspected and there was no spillage of bowel contents. There was good hemostasis. The abdomen was suctioned dry and the ports were removed. The fascia at the midline incision was closed with a [id number] 0 Vicryl suture. All the incisions were injected with local anesthesia and the incisions were all closed with interrupted 4-0 Monocryl sutures as well as Steri-Strips and bandages. Patient was awoken and taken to PACU in stable condition with NG still in place. - Admit VTE Documentation VTE Mechan Device Prophylaxis: SCD's
[2020-10-15 00:02] VITALS: BP 142/84; PULSE 74; RESP 18; TEMP 36.4; O2SAT 95
[2020-10-15] MEDS: BENZOCAINE/MENTHOL 1 LOZENGE 2 LOZENGE MUCOUS MEM ×2 (00:08→03:47)
[2020-10-15] MEDS: Morphine 2 MG/ML Syringe IV ×2 (00:08→03:47)
[2020-10-15] MEDS: 0.9% Saline Lock 10 ML Syringe IV (00:08)
[2020-10-15 03:43] VITALS: BP 150/91; PULSE 110; RESP 18; TEMP 36.7; O2SAT 93
--- NOTE | 2020-10-15 05:55 | RAD_ITS ---
INDICATION: SBO EXAMINATION/TECHNIQUE: X-RAY - XR Abdomen 1 View COMPARISON: None FINDINGS: Tip of nasogastric tube is in the body of the stomach. BOWEL GAS PATTERN: Contrast is seen throughout the colon. Minimal residual gaseous distention of the small bowel loops. FREE AIR: Not assessed on a single supine view. ORGANOMEGALY: Not seen. CALCIFICATIONS: No abnormal calcifications observed. LOWER CHEST: No acute pathology. BONES AND SOFT TISSUES: No acute pathology. RAD/Abdomen Single View (Portable) IMPRESSION: Oral contrast is seen throughout the entire colon with minimal residual gaseous distention of the small bowel. Electronically Signed: Jan Donahue MD at 11:14 EDT , Service support ,
[2020-10-15 06:39] LABS: Absolute Neutrophil Count 12.2 X10^3/uL (2.0-7.7); Basophil# 0.02 X10^3/uL; Basophil% 0.1 % (0-1); Hematocrit 43.8 % (40-54); Hemoglobin 13.8 g/dL (13.0-16.5); Lymphocyte % 13.5 % (19-41); Mean Corp Hgb Conc 31.5 g/dL (32-36); Mean Corpuscular Volume 82.6 fL (80-94); Mean Platelet Vol. 8.7 fl (6.2-12.0); Monocyte# 1.18 X10^3/uL; Monocyte% 7.6 % (0-10); NRBC Flagged by Analyzer 0 % (0-5); Neutrophil # 12.22 X10^3/uL (2.7-7.7); Neutrophil % 78.4 % (47-70); Platelet Count 309 K/mm3 (150-450); RBC Distribution Width SD 45.5 fl (35.1-43.9); White Blood Count 15.6 K/mm3 (4.4-11.0)
[2020-10-15 07:15] LABS: Anion Gap 7 (5-15); BUN 12 mg/dL (7-18); BUN/Creat Ratio 12.5 RATIO (10-20); Calcium,Total 8.4 mg/dL (8.5-10.1); Chloride 106 mmol/L (98-107); Creatinine, Serum 0.96 mg/dL (0.70-1.30); EST Glomerular Filtration Rate 90 mL/min (>60); Est Glom Filt Rate - Afr Amer 109 mL/min (>60); Glucose 87 mg/dL (74-106); Potassium 3.9 mmol/L (3.5-5.1); Sodium Level 140 mmol/L (136-145)
--- NOTE | 2020-10-15 07:46 | PCM.PN.SRG ---
Patient Problems: Active and Suspected Problems Small bowel obstruction (Acute) Subjective: Patient reports he is passing flatus and had a bowel movement overnight. He has no nausea or vomiting. Abdominal pain 5 out of 10 - Physical Exam Vitals/I&O's: Vital Signs Temp Pulse Resp BP Pulse Ox 98.1 F 110 H 18 150/91 H 93 10/15/20 03:43 10/15/20 03:43 10/15/20 03:43 10/15/20 03:43 10/15/20 03:43 Oxygen Delivery Method Room Air Weight: 205 lb 15.999 oz Body Mass Index (BMI) 31.3 Intake and Output for Last 24 Hours 10/13/20 10/14/20 10/15/20 23:59 23:59 23:59 Intake Total 3546.25 / 3546.25 4096.25 / 4096.25 639.58 / 639.58 Output Total 0 / 2059 1800 / 1800 1080 / 1080 Balance 1486.25 / 1486.25 2296.25 / 2296.25 -440.42 / -440.42 General: Alert, Oriented x3 Neck: No JVD Lungs: Normal air movement Cardiovascular: Regular rate, Regular Rhythm Abdomen: Soft, Non Tender, Non-Distended Microbiology Past 72 Hours 10/13/20 07:30 Mucosa - Nose SARS-CoV-2 Antigen (Rapid) - Final Laboratory Results 10/14/20 05:55: Sodium 141, Potassium 3.5, Chloride 106, Carbon Dioxide 31.0, Anion Gap 4 L, BUN 13, Creatinine 0.92, Estim Creat Clear Calc 99.13, Est GFR (MDRD) Af Amer 115, Est GFR (MDRD) Non-Af 95, BUN/Creatinine Ratio 14.2, Glucose 93, Calcium 8.4 L 10/15/20 06:30: WBC 15.6 H, RBC 5.30, Hgb 13.8, Hct 43.8, MCV 82.6, MCH 26.0 L, MCHC 31.5 L, RDW Std Deviation 45.5 H, RDW Coeff of King 15.0 H, Plt Count 309, MPV 8.7, Immature Gran % (Auto) 0.400, Neut % (Auto) 78.4 H, Lymph % (Auto) 13.5 L, [place] % (Auto) 7.6, Eos % (Auto) 0.0, Baso % (Auto) 0.1, Absolute Neuts (auto) 12.2 H, Absolute Lymphs (auto) 2.10, Nucleated RBC % 0 10/15/20 06:30: Sodium 140, Potassium 3.9, Chloride 106, Carbon Dioxide 27.0, Anion Gap 7, BUN 12, Creatinine 0.96, Estim Creat Clear Calc 95.00, Est GFR (MDRD) Af Amer 109, Est GFR (MDRD) Non-Af 90, BUN/Creatinine Ratio 12.5, Glucose 87, Calcium 8.4 L Current Medications Sodium Chloride () 1,000 mls @ 0 mls/hr IV .Q8H [facility] Last Infusion: 10/15/20 05:15 Dose: 0 mls/hr Documented by: Pantoprazole Sodium 40 mg/ (Sodium Chloride) 110 mls @ 330 mls/hr IV Q24 [facility] Last Infusion: 10/14/20 13:00 Dose: Infused Documented by: Piperacillin Sod/Tazobactam (Sod 3.375 gm/ Sodium Chloride) 50 mls @ 12.5 mls/hr IV Q8 [facility] Last Admin: 10/15/20 05:14 Dose: 12.5 mls/hr Documented by: Morphine Sulfate (Morphine 2 Mg/Ml Syringe) 2 - 4 mg IV Q2H PRN PRN PRN Reason: Pain Score 4-10 Last Admin: 10/15/20 03:47 Dose: 2 mg Documented by: Morphine Sulfate (Morphine 4 Mg/Ml Syringe) 2 - 4 mg IV Q2H PRN PRN PRN Reason: Pain Score 4-10 Ondansetron HCl (Ondansetron 4 Mg/2 Ml Vial) 4 mg IV Q6H PRN PRN PRN Reason: NAUSEA Sodium Chloride (0.9% Saline Lock 10 Ml Syringe) 10 - 40 ml IV UD PRN PRN Reason: SALINE FLUSH Last Admin: 10/15/20 00:08 Dose: 10 ml Documented by: Throat Lozenges (Benzocaine/Menthol 1 Lozenge) 2 lozenge MUCOUS MEM Q2H PRN PRN PRN Reason: SORE THROAT Last Admin: 10/15/20 03:47 Dose: 2 lozenge Documented by: Medical Necessity - Tobacco Use Smoking Status: Current every day smoker Assessment/Plan All Active Problems Small bowel obstruction (Acute) Diverticulitis (Acute) 44-year-old male status post laparoscopy for small bowel obstruction 1. Patient is small bowel adhered to the sigmoid colon and this was taken down and the patient's KUB this morning shows contrast completely in the colon. There is no extravasation of contrast. The patient has bowel movements and his NG is clear with minimal output. I will remove the NG and start clear liquid diet. I will decrease his IV fluids. Continue antibiotics. Observe to see how the patient does with clears to see when I can advance his diet. Latrell Mcleod MD Pager: [facility] [address] [place] [address], [address] [place] [address] Office:
[2020-10-15 07:56] VITALS: BP 144/91; PULSE 85; RESP 16; TEMP 36.8; O2SAT 96
[2020-10-15 08:25] VITALS: PULSE 92
[2020-10-15] MEDS: Pantoprazole Sodium 40 MG Tablet PO (09:16)
[2020-10-15] MEDS: oxyCODONE 5 MG Tablet PO ×2 (09:46→15:04)
[2020-10-15 10:48] VITALS: BP 146/96; PULSE 108; RESP 18; TEMP 36.8; O2SAT 97
[2020-10-15 15:01] VITALS: BP 162/89; PULSE 120; RESP 18; TEMP 37.1; O2SAT 94
--- NOTE | 2020-10-15 15:33 | PCM.DC.GS ---
Discharge Diet: Light diet - advance as tolerated Discharge Activity: May Not Drive - No driving for 3 days or while taking narcotic pain meds. May shower in (days): 1 Lifting Restrictions: 10 pounds Call your doctor if your incision/area has: Continuous Slow Oozing, Sudden Increased Bleeding, Increased Pain/ Swelling, Increased Redness, Foul Smelling Discharge, Swelling at the incision site Call your doctor if you observe: Fever of 101 or Higher Suture Line Care: Avoid Pulling/Pushing, Avoid Pinching/Bending Change Dressing in (Days):: 2 - Leave steri-strips in place for 1 week. Allergies/Adverse Reactions: Allergies No Known Allergies Allergy (Verified 10/13/20 04:57) Medications to take at Discharge Esomeprazole Mag Trihydrate [Nexium] 40 mg PO DAILY 10/13/20 Acetaminophen [Tylenol Tablet] 650 mg PO Q4H PRN PRN tablet 10/15/20 Oxycodone [Oxyir] 5 - 10 mg PO Q4H PRN PRN 5 Days #30 tablet 10/15/20 The following prescriptions were given: Oxycodone [Oxyir] 5 - 10 mg PO Q4H PRN PRN 5 Days #30 tablet PRN Reason: Pain Score 4-10 Transmission Status: Sent to [facility] Primary Care Physician: NOT,DEFINED [NON-STAFF] - Test Results: Test results from this visit will be discussed in further detail at your follow-up appointment, if applicable. Please Follow Up With: Latrell Mcleod MD When: Please call to schedule 2 week follow up appointment. [phone]
--- NOTE | 2020-10-15 15:50 | DS.PCM_ITS ---
Discharge Date and Diagnosis - Problem List Patient Problems: Active and Suspected Problems Small bowel obstruction (Acute) Date of Admission: 10/13/20 Date of Discharge: 10/15/20 - Primary Discharge Diagnosis Acute Problems: Active Problems Small bowel obstruction (Acute) Hospital Course and Treatment Imaging Results: Clinical Impression(s) from Imaging Studies Abdomen/Pelvis CT 10/13/20 05:04 IMPRESSION: Multiple dilated loops of small bowel within the central abdomen. Some more normal-appearing distal loops of small bowel. Findings are concerning for developing small bowel obstruction. No evidence of diverticulitis. Normal appendix. Electronically Signed: Juan Carlos Arreola DO at 6:32 EDT Tel , Service support , KUB X-Ray 10/13/20 06:52 IMPRESSION: The tip of the nasogastric tube is in the fundal portion of the stomach. Evidence of small bowel obstruction. Electronically Signed: Jan Donahue MD at 8:19 EDT , Service support , Small Bowel X-Ray 10/14/20 10:35 IMPRESSION: Electronically Signed: Jan Donahue MD at 15:01 EDT , Service support , KUB X-Ray 10/15/20 05:55 IMPRESSION: Oral contrast is seen throughout the entire colon with minimal residual gaseous distention of the small bowel. Electronically Signed: Jan Donahue MD at 11:14 EDT , Service support , Operations: - - laparoscopic takedown of adhesions Summary of Care Provided: The patient is a 44 year old M Presented with nausea and vomiting abdominal pain. The patient reports that he had a history of diverticulitis. After decompression of small bowel follow-through did not make it to the colon and I took him for exploratory laparoscopy. The patient had a lot of adhesions in the right lower quadrant including adhesions of the colon. These were taken down and the patient was brought to the floor postoperatively. The following morning he was passing bowel movements and the KUB in the morning showed contrast reaching the colon and throughout the colon. He was diet was slowly advanced throughout the day and then he was discharged home in stable condition. Patient Problems: Active and Suspected Problems Small bowel obstruction (Acute) - Physical Exam Vitals/I&O's: Vital Signs Temp Pulse Resp BP Pulse Ox 98.8 F 120 H 18 162/89 H 94 10/15/20 15:01 10/15/20 15:01 10/15/20 15:01 10/15/20 15:01 10/15/20 15:01 Oxygen Delivery Method Room Air Weight: 205 lb 15.999 oz Body Mass Index (BMI) 31.3 Intake and Output for Last 24 Hours 10/13/20 10/14/20 10/15/20 23:59 23:59 23:59 Intake Total 3546.25 / 3546.25 4096.25 / 4096.25 1250.58 / 1250.58 Output Total 2060 / 2060 1800 / 1800 1080 / 1080 Balance 1486.25 / 1486.25 2296.25 / 2296.25 170.58 / 170.58 Microbiology Past 72 Hours 10/13/20 07:30 Mucosa - Nose SARS-CoV-2 Antigen (Rapid) - Final Laboratory Results 10/15/20 06:30: WBC 15.6 H, RBC 5.30, Hgb 13.8, Hct 43.8, MCV 82.6, MCH 26.0 L, MCHC 31.5 L, RDW Std Deviation 45.5 H, RDW Coeff of King 15.0 H, Plt Count 309, MPV 8.7, Immature Gran % (Auto) 0.400, Neut % (Auto) 78.4 H, Lymph % (Auto) 13.5 L, [place] % (Auto) 7.6, Eos % (Auto) 0.0, Baso % (Auto) 0.1, Absolute Neuts (auto) 12.2 H, Absolute Lymphs (auto) 2.10, Nucleated RBC % 0 10/15/20 06:30: Sodium 140, Potassium 3.9, Chloride 106, Carbon Dioxide 27.0, Anion Gap 7, BUN 12, Creatinine 0.96, Estim Creat Clear Calc 95.00, Est GFR (MDRD) Af Amer 109, Est GFR (MDRD) Non-Af 90, BUN/Creatinine Ratio 12.5, Glucose 87, Calcium 8.4 L Current Medications Acetaminophen (Acetaminophen 325 Mg Tablet) 650 mg PO Q4H PRN PRN PRN Reason: Pain 1-10 or Fever Sodium Chloride () 1,000 mls @ 0 mls/hr IV .Q8H [facility] Last Infusion: 10/15/20 13:18 Dose: 0 mls/hr Documented by: Piperacillin Sod/Tazobactam (Sod 3.375 gm/ Sodium Chloride) 50 mls @ 12.5 mls/hr IV Q8 [facility] Last Admin: 10/15/20 13:18 Dose: 12.5 mls/hr Documented by: Ketorolac Tromethamine (Ketorolac 15 Mg/Ml Vial) 15 mg IV Q8H PRN PRN PRN Reason: Pain Score 4-10 Stop: 10/17/20 07:48 Morphine Sulfate (Morphine 2 Mg/Ml Syringe) 2 - 4 mg IV Q2H PRN PRN PRN Reason: Pain Score 4-10 Last Admin: 10/15/20 03:47 Dose: 2 mg Documented by: Morphine Sulfate (Morphine 4 Mg/Ml Syringe) 2 - 4 mg IV Q2H PRN PRN PRN Reason: Pain Score 4-10 Ondansetron HCl (Ondansetron 4 Mg/2 Ml Vial) 4 mg IV Q6H PRN PRN PRN Reason: NAUSEA Oxycodone HCl (Oxycodone 5 Mg Tablet) 5 - 10 mg PO Q4H PRN PRN PRN Reason: Pain Score 4-10 Last Admin: 10/15/20 15:04 Dose: 10 mg Documented by: Pantoprazole Sodium (Pantoprazole Sodium 40 Mg Tablet) 40 mg PO DAILY [facility] Last Admin: 10/15/20 09:16 Dose: 40 mg Documented by: Sodium Chloride (0.9% Saline Lock 10 Ml Syringe) 10 - 40 ml IV UD PRN PRN Reason: SALINE FLUSH Last Admin: 10/15/20 00:08 Dose: 10 ml Documented by: Throat Lozenges (Benzocaine/Menthol 1 Lozenge) 2 lozenge MUCOUS MEM Q2H PRN PRN PRN Reason: SORE THROAT Last Admin: 10/15/20 03:47 Dose: 2 lozenge Documented by: Discharge Diet: Light diet - advance as tolerated Discharge Activity: May Not Drive - No driving for 3 days or while taking narcotic pain meds. May shower in (days): 1 Call your doctor if your incision/area has: Continuous Slow Oozing, Sudden Increased Bleeding, Increased Pain/ Swelling, Increased Redness, Foul Smelling Discharge, Swelling at the incision site Call your doctor if you observe: Fever of 101 or Higher Suture Line Care: Avoid Pulling/Pushing, Avoid Pinching/Bending Change Dressing in (Days):: 2 - Leave steri-strips in place for 1 week. Home Medications: Medications to take at Discharge Esomeprazole Mag Trihydrate [Nexium] 40 mg PO DAILY 10/13/20 Acetaminophen [Tylenol Tablet] 650 mg PO Q4H PRN PRN tablet 10/15/20 Oxycodone [Oxyir] 5 - 10 mg PO Q4H PRN PRN 5 Days #30 tablet 10/15/20 Following Prescriptions Were Given to Patient: Oxycodone [Oxyir] 5 - 10 mg PO Q4H PRN PRN 5 Days #30 tablet PRN Reason: Pain Score 4-10 Transmission Status: Received by [facility] Primary Care Physician: NOT,DEFINED [NON-STAFF] - Please Follow Up With: Latrell Mcleod MD When: Please call to schedule 2 week follow up appointment. [phone] Medical Necessity - Tobacco Use Smoking Status: Current every day smoker Meaningful Use Info Meaningful Use Diagnoses (Choose all that apply): None applicable
--- NOTE | 2020-10-15 16:45 | PHA.DC.MC ---
Pharmacy Service has performed discharge medication reconciliation and counseling for this patient. 1. ACETAMINOPHEN 650MG PO Q4H PRN PAIN 2. OXYCODONE 5-10MG PO Q4H PRN PAIN The patient's discharge medication list was reviewed for discrepancies and discrepancies were resolved. Home Medications Esomeprazole Mag Trihydrate [Nexium] 40 mg PO DAILY 10/13/20 Acetaminophen [Tylenol Tablet] 650 mg PO Q4H PRN PRN tablet 10/15/20 Oxycodone [Oxyir] 5 - 10 mg PO Q4H PRN PRN 5 Days #30 tablet 10/15/20 The patient was counseled on the following discharge medications and changes in medications for homegoing were reviewed. The Reason for Use, instructions for use, and potential side effects were reviewed for all new medications. The patient's questions regarding all of their medications were answered. The patient was able to verbally demonstrate an understanding of their discharge medications.
== END 2020-10-15 16:46 | disposition home or self-care (01) | DRG 337 ==
LOC: ED 07:06 → MS3 07:35
PROVIDERS: Admitting Provider Surgery; Emergency Provider Emergency Medicine; Visit Provider Surgery
PROC: (CPT 44202; principal; 2020-10-14 15:40)
DX: K56.51 Intestinal adhesions [bands], with partial obstruction (principal); F17.200 Nicotine dependence, unspecified, uncomplicated
CPT/HCPCS: 36415; 74018; 74177; 74250; 80048; 80053; 83605; 83690; 85025; 87426; 93005; 94640; 99251; 99285; 99406; J7030; J7120; Q9967; A4216; G0463; J2405

== ENCOUNTER 2021-11-04 20:41 | Inpatient (IN) | payer SELFPAY ==
[2021-11-04] VITALS (12 sets, daily range): BP systolic 111–148; BP diastolic 69–106; PULSE 110–135; RESP 22–28; TEMP 36.8–39.1; O2SAT 94–97; BMI 31.1; BMI 30.1
--- NOTE | 2021-11-04 20:54 | EKG12_ITS ---
Test Reason : DYSRHYTHMIA Blood Pressure : / mmHG Vent. Rate : 128 BPM Atrial Rate : 128 BPM P-R Int : 124 ms QRS Dur : 100 ms QT Int : 280 ms P-R-T Axes : 065 079 079 degrees QTc Int : 408 ms Sinus tachycardia T wave abnormality, consider lateral ischemia Abnormal ECG Confirmed by KELLY LAMB, RAJEEV ([id number]), editor index JASSON GARCIA ([id number]) on 11/09/2021 10:29:19 AM Referred By: MARKY Confirmed By:RAJEEV MENDOZA MD
--- NOTE | 2021-11-04 20:59 | EDS_ITS ---
HPI History of Present Illness Chief Complaint: Shortness of Breath Informant: patient Narrative Narrative: Patient is a 45-year-old male with history of small bowel obstruction presenting with fever and shortness of breath. Patient states the past 2 days he has had cough and generalized malaise. He has had fever. He has had a temperature as high as 102.2. He started to feel he was needing to gasp for air which is what brought him to the emergency room. He does have some associated chest pain but he attributes that to his coughing. Denies any sick contacts. Denies any leg swelling. Denies any vomiting or diarrhea but does report nausea. Has had decreased oral intake and therefore decreased urination. States has never been sick like this before. Denies any problems with his lungs. Came by EMS and was put on oxygen however his lowest oxygen was 94%. Notes oxygen is making him feel a little bit better. PFSH PFSH Medical History Diverticulitis GERD (gastroesophageal reflux disease) Obesity Small bowel obstruction Tobacco use Home Medications NK 11/04/21 [History Last Taken Unknown] Allergy/AdvReac Type Severity Reaction Status Date / Time No Known Allergies Allergy Verified 11/04/21 20:44 Surgical History (Updated 11/04/21 @ 22:[address] Ese Payne MD) Hx of exploratory laparotomy Social History Smoking Status: Current every day smoker tobacco type: cigarettes ROS ROS ED Constitutional Constitutional ED: Reports chills and fever(s) Eyes Eyes: Denies change in vision ENT ENT ED: Denies rhinorrhea or sore throat Cardiovascular Cardiovascular: Reports chest pain; Denies palpitations Respiratory/Chest Respiratory/Chest: Reports cough and dyspnea Gastrointestinal Gastrointestinal: Reports nausea; Denies abdominal pain, diarrhea or vomiting Genitourinary Genitourinary ED: Denies dysuria or hematuria Musculoskeletal Musculoskeletal: Denies arthralgias or back pain Integumentary Denies rash Neurologic Neurologic: Denies headache(s) or weakness Psychiatric Psychiatric: Denies depression EXAM Physical Exam Const Vital Signs: 11/04/21 20:42 11/04/21 20:44 11/04/21 21:06 Temperature 101.3 F H 101.3 F H Temperature Source Temporal Temporal Pulse Rate 114 H 114 H Respiratory Rate 22 H 22 H Respiratory Effort Respiratory Pattern Blood Pressure 125/106 H Blood Pressure Mean 112 Pulse Ox 95 95 96 Oxygen Delivery Method Room Air Room Air Nasal Cannula Oxygen Flow Rate (L/min) Fraction of Inspired Oxygen (FIO2) 11/04/21 21:11 11/04/21 21:16 11/04/21 21:19 Temperature 102.3 F H Temperature Source Oral Pulse Rate 135 H Respiratory Rate 28 H Respiratory Effort Short of Breath Respiratory Pattern Tachypnea Tachypnea Blood Pressure Blood Pressure Mean Pulse Ox Oxygen Delivery Method Room Air Oxygen Flow Rate (L/min) Fraction of Inspired Oxygen (FIO2) 11/04/21 21:34 11/04/21 21:44 11/04/21 22:07 Temperature 98.2 F 98.2 F Temperature Source Oral Oral Pulse Rate 132 H 126 H Respiratory Rate 25 H 27 H Respiratory Effort Respiratory Pattern Blood Pressure 148/94 H 122/80 H Blood Pressure Mean 112 94 Pulse Ox 97 96 Oxygen Delivery Method Nasal Cannula Nasal Cannula Oxygen Flow Rate (L/min) 2 2 Fraction of Inspired Oxygen (FIO2) 98.2 Positive well nourished and well developed General Appearance ED: well developed and NAD HEENT Reports moist mucous membranes atraumatic Eyes PERRL and EOMs intact bilaterally Neck supple and no meningeal signs Resp Resp Narrative: End expiratory wheezing most pronounced in the upper lung jack. Tachypnea. Cardio regular rhythm and no murmurs Rate: tachycardic GI non-tender and non-distended Auscultation: normoactive bowel sounds Palpation: soft Back/Spine normal to inspection Extremity normal to inspection General Extremety ED: Negative for edema General Extremity: Negative for edema Neuro oriented x3 Sensorium / Orientation: alert Motor Exam: general weakness Psych mental status grossly normal Skin Lesions: no lesions Rashes: no rashes MDM MDM MDM Narrative Medical decision making narrative: Patient arrives with of sensation of needing to gasp for air. He is been sick for 2 to 3 days. Patient appears toxic. He is tachycardic, tachypneic and febrile. He is given Tylenol as well as IV fluids. Is also given a dose of Zofran for nausea. Work-up is remarkable for a leukocytosis with shift as well as multi lobar infiltrate. Patient is covered with Rocephin and azithromycin. Rapid COVID/influenza are negative. He is wheezing initially and is given DuoNeb and albuterol. Clinically seems improved with patient does not feel any better. Patient does feel better after the Tylenol. Will be admitted given the degree of his pneumonia and symptoms. Patient is agreeable with this plan of care. Lab Data Attestation: I reviewed the patient's lab results. Labs: Laboratory Results - last 24 hr 11/04/21 11/04/21 11/04/21 21:25 21:25 21:25 WBC 19.4 H RBC 4.99 Hgb 13.2 Hct 41.6 MCV 83.4 MCH 26.5 L MCHC 31.7 L RDW Std Deviation 46.5 H RDW Coeff of King 15.3 H Plt Count 309 MPV 9.1 Immature Gran % (Auto) 0.700 Neut % (Auto) 90.3 H Lymph % (Auto) 3.2 L [place] % (Auto) 5.4 Eos % (Auto) 0.2 Baso % (Auto) 0.2 Absolute Neuts (auto) 17.5 H Absolute Lymphs (auto) 0.61 L Nucleated RBC % 0 Sodium 133 L Potassium 3.8 Chloride 101 Carbon Dioxide 28.0 Anion Gap 4 L BUN 12 Creatinine 0.88 Estim Creat Clear Calc 102.56 Est GFR (MDRD) Af Amer 119 Est GFR (MDRD) Non-Af 99 BUN/Creatinine Ratio 13.6 Glucose 118 H Lactic Acid 1.6 Calcium 8.8 Total Bilirubin 1.30 H AST 34 ALT 52 Alkaline Phosphatase 111 Troponin I High Sens 27 Total Protein 8.1 Albumin 3.4 Globulin 4.7 H Albumin/Globulin Ratio 0.7 L Urine Color Urine Clarity Urine pH Ur Specific [place] Urine Protein Urine Glucose (UA) Urine Ketones Urine Occult Blood Urine Nitrite Urine Bilirubin Urine Urobilinogen Ur Leukocyte Esterase Urine RBC Urine WBC Ur Squamous Epith Cells Urine Bacteria Urine Mucus 11/04/21 21:43 WBC RBC Hgb Hct MCV MCH MCHC RDW Std Deviation RDW Coeff of King Plt Count MPV Immature Gran % (Auto) Neut % (Auto) Lymph % (Auto) [place] % (Auto) Eos % (Auto) Baso % (Auto) Absolute Neuts (auto) Absolute Lymphs (auto) Nucleated RBC % Sodium Potassium Chloride Carbon Dioxide Anion Gap BUN Creatinine Estim Creat Clear Calc Est GFR (MDRD) Af Amer Est GFR (MDRD) Non-Af BUN/Creatinine Ratio Glucose Lactic Acid Calcium Total Bilirubin AST ALT Alkaline Phosphatase Troponin I High Sens Total Protein Albumin Globulin Albumin/Globulin Ratio Urine Color Yellow Urine Clarity Clear Urine pH 5.0 Ur Specific [place] 1.025 Urine Protein 100 H Urine Glucose (UA) Normal Urine Ketones Negative Urine Occult Blood 25 H Urine Nitrite Negative Urine Bilirubin 1 H Urine Urobilinogen 12 H Ur Leukocyte Esterase 25 H Urine RBC 0-5 SEEN Urine WBC 0 SEEN Ur Squamous Epith Cells 0 SEEN Urine Bacteria 0 SEEN Urine Mucus 0 SEEN Radiography Chest X-Ray - ED: 1 View, Read by ED Physician, Read by Radiologist, Right Infil trate and Left Infiltrate Diagnostic Testing: Clinical Impression(s) from Imaging Studies Chest X-Ray 11/04/21 21:36 IMPRESSION: Scattered patchy opacities, concerning for multifocal infection including viral pneumonia. Electronically Signed: Parvez Rojas MD at 22:03 EDT , Rhythm Strip Rhythm Strip: Sinus Tach Rate: 128 Ectopy: None EKG Initial EKG: Attestation: I personally reviewed and interpreted this EKG as follows: Interpretation: Sinus Tachycardia Comments: Sinus tachycardia rate of 126 Normal axis Normal intervals T wave in versions in V3 through V6?suspect strain pattern Discharge Plan Triage Chief Complaint: Shortness of Breath ED Provider: Debbie Puentes Dx/Rx/DC Orders Clinical Impression: Sepsis, Pneumonia Prescriptions: No Action NK RF: 0 Primary Care Provider: Care Physician,No Primary Referrals: Care Physician,No Primary [Primary Care Provider] - Disposition Disposition: Acute Care [facility]
[2021-11-04] MEDS: Ipratropium/Albuterol Sulfate 3 ML AMPUL.NEB INHALATION (21:16)
[2021-11-04] MEDS: Acetaminophen 500 MG Tablet 1000 MG PO (21:33)
[2021-11-04] MEDS: 0.9% Normal Saline 1,000 ML 999 ML IV (21:33)
--- NOTE | 2021-11-04 21:36 | RAD_ITS ---
INDICATION: sob EXAMINATION/TECHNIQUE: X-RAY - XR Chest 1 View COMPARISON: 12/11/2018 FINDINGS: LINES/DEVICES: None. LUNGS: Scattered bilateral patchy opacities, worst in the right lower lung field. No pleural effusion or pneumothorax. MEDIASTINUM AND CARDIOVASCULAR STRUCTURES: Cardiac silhouette not enlarged. Central airways and mediastinal contour are unremarkable. BONES AND SOFT TISSUES: Unremarkable. RAD/Chest 1 View (Portable) IMPRESSION: Scattered patchy opacities, concerning for multifocal infection including viral pneumonia. Electronically Signed: Parvez Rojas MD at 22:03 EDT ,
[2021-11-04 21:39] LABS: Absolute Lymphocyte Count 0.61 X10^3/uL (0.83-4.51); Absolute Neutrophil Count 17.5 X10^3/uL (2.0-7.7); Basophil# 0.04 X10^3/uL; Basophil% 0.2 % (0-1); Eosinophil# 0.04 X10^3/uL; Eosinophils% 0.2 % (0-5); Hematocrit 41.6 % (40-54); Hemoglobin 13.2 g/dL (13.0-16.5); Lymphocyte # 0.61 X10^3/ul (0.83-4.51); Lymphocyte % 3.2 % (19-41); Mean Corp Hgb Conc 31.7 g/dL (32-36); Mean Corpuscular Hgb 26.5 pg (27.0-32.0); Mean Corpuscular Volume 83.4 fL (80-94); Mean Platelet Vol. 9.1 fl (6.2-12.0); Monocyte# 1.05 X10^3/uL; Monocyte% 5.4 % (0-10); NRBC Flagged by Analyzer 0 % (0-5); Neutrophil # 17.47 X10^3/uL (2.7-7.7); Neutrophil % 90.3 % (47-70); Platelet Count 309 K/mm3 (150-450); RBC Distribution Width CV 15.3 % (11.6-14.6); RBC Distribution Width SD 46.5 fl (35.1-43.9); Red Blood Count 4.99 M/mm3 (4.6-6.2); White Blood Count 19.4 K/mm3 (4.4-11.0)
--- NOTE | 2021-11-04 21:52 | CM.ED ---
SW Note Referral Source: Case Find Referral Reason: NO PCP and NO insurance Blossom met with patient. Patient confirmed he has no PCP. SW provided patient with [facility] Healthcare Provider List. Patient reports he will have insurance in 2 weeks when it kicks in so he declined financial packet. SW remains available if needs arise. Plan: resources provided Mariola WRIGHT
[2021-11-04 21:54] LABS: Bacteria 0 SEEN /hpf (None Seen); Color, Urine Yellow (Yellow); Glucose, Dipstick Normal (Normal); Ketone-Dipstick Negative (Negative); Leukocyte Esterase-Dipstick 25 /ul (Negative); Mucous, Urine 0 SEEN /hpf (<or=2+); Nitrite-Dipstick Negative (Negative); Occult Blood-Urine 25 /ul (Negative); Protein-Dipstick 100 mg/dl (Negative); Specific Gravity, Urine 1.025 (1.002-1.030); Squamous Epithelial Cells - UA 0 SEEN /hpf (0-5); Urine Clarity Clear (Clear); Urine Urobilinogen 12 mg/dl (Normal); White Blood Cells 0 SEEN /hpf (0-5)
[2021-11-04] MEDS: Ondansetron 4 MG/2 ML Vial IV (21:55)
[2021-11-04 21:56] LABS: Urine Bilirubin Dipstick 1 mg/dL (Negative)
[2021-11-04 22:00] LABS: Red Blood Cells-Urine 0-5 SEEN /hpf (0-5)
[2021-11-04 22:06] LABS: Lactic Acid 1.6 mmol/L (0.4-1.9)
[2021-11-04 22:08] LABS: ALB/GLOB Ratio 0.7 RATIO (0.9-2.4); AST(SGOT) 34 U/L (15-37); Alanine Aminotransfer ALT/SGPT 52 U/L (16-61); Albumin, Serum 3.4 g/dL (3.2-5.0); Alkaline Phosphatase 111 U/L (45-117); Anion Gap 4 (5-15); BUN 12 mg/dL (7-18); BUN/Creat Ratio 13.6 RATIO (10-20); Calcium,Total 8.8 mg/dL (8.5-10.1); Chloride 101 mmol/L (98-107); Creatinine, Serum 0.88 mg/dL (0.70-1.30); EST Glomerular Filtration Rate 99 mL/min (>60); Est Glom Filt Rate - Afr Amer 119 mL/min (>60); Estimated Creatinine Clearance 102.56 ml/min; Globulin 4.7 g/dL (2.2-4.2); Glucose 118 mg/dL (74-106); Potassium 3.8 mmol/L (3.5-5.1); Protein, Total 8.1 g/dL (6.4-8.2); Sodium Level 133 mmol/L (136-145); Troponin-I HS 27 pg/mL (3.0-78.0)
--- NOTE | 2021-11-04 22:32 | PCM.HP.STD ---
HPI - General General Date of Admission: 11/04/21 Date of Service: 11/04/21 Chief Complaint: Cough, dyspnea, fever, nausea. HPI Narrative The patient is a 45 y/o M w/ PMHx: Hx SBO status post ex lap, Tobacco use who presents to the [facility] ED on 11/04/21 with history of 2 to 3 days of progressively worsening fatigue, malaise, fevers, chills, nonproductive cough, body aches with home temperature as high as 102.2 with significantly worsening dyspnea sensation with pleuritic chest discomfort secondary to coughing with no recent ill contacts with nausea without emesis nor any diarrhea however his intake is been decreased and has had decreased urine output prompting ED evaluation. Patient brought in by EMS and noted that his lowest oxygen was 94%. He does have a friend with whom he lives and he notes this individual has not been ill. Work-up in the ED included T101.3, heart rate 114, BP 125/106, respiratory rate 22, 95% on room air, CBC with WBC 19.4, hemoglobin 13.2, platelet 309 with left shift and lymphopenia, CMP with sodium 133, glucose 118, lactic acid 1.6, T bili 1.30 otherwise unremarkable hepatic profile, troponin 27, chest x-ray with scattered patchy opacities concerning for multifocal infection including viral pneumonia, rapid influenza negative, blood culture x2 pending per ED, urinalysis with evidence of dehydration otherwise no obvious acute evidence of UTI. In the ED patient administered normal saline bolus, Tylenol, azithromycin, Rocephin, DuoNeb therapy as well as Zofran. PFSH Medical History Diverticulitis GERD (gastroesophageal reflux disease) Obesity Small bowel obstruction Tobacco use Home Medications NK 11/04/21 [History Last Taken Unknown] Allergy/AdvReac Type Severity Reaction Status Date / Time No Known Allergies Allergy Verified 11/04/21 20:44 other (Patient denies any marked maternal or paternal family history including HD, DM, CA.) Surgical History (Updated 11/04/21 @ 22:[address] Ese Payne MD) Hx of exploratory laparotomy Social History (Updated 11/04/21 @ 22:[address] Ese Payne MD) household members: friend(s) Smoking Status: Former smoker how long ago did patient quit smoking: Quit x 1 week, smoked ~ 1 ppd since teen until 10/28/21.,= alcohol intake: current alcohol intake frequency: a few times a month substance use type: does not use ROS ROS Narrative Admission Review of Systems: CONSTITUTIONAL: No weight loss, + fever, chills, weakness or fatigue. HEENT: Eyes: No visual loss, blurred vision, double vision or yellow sclerae. Ears, Nose, Throat: No hearing loss, sneezing, congestion, runny nose or sore throat. SKIN: No rash or itching, lesions, wounds. CARDIOVASCULAR: No chest pain, chest pressure or chest discomfort, palpitations, edema, orthopnea, syncopal events. RESPIRATORY: + Shortness of breath, cough without marked sputum, wheezing, No hemoptysis. GASTROINTESTINAL: + Anorexia, nausea, No vomiting or diarrhea, abdominal pain, melena, BRBPR. GENITOURINARY: No dysuria, frequency, urgency or retention. NEUROLOGICAL: No headache, dizziness, syncope, paralysis, ataxia, numbness or tingling in the extremities, focal weakness, change in bowel or bladder control, seizure. MUSCULOSKELETAL: + muscle, back pain, joint pain or stiffness. HEMATOLOGIC: No anemia, bleeding or bruising. LYMPHATICS: No enlarged nodes. No history of splenectomy. PSYCHIATRIC: No history of depression or anxiety. ENDOCRINOLOGIC: No reports of sweating, cold or heat intolerance. No polyuria or polydipsia. ALLERGIES: No history of asthma, hives, eczema or rhinitis. Vital Signs Vital Signs Vital Signs: 11/04/21 20:42 11/04/21 20:44 11/04/21 21:06 Temperature 101.3 F H 101.3 F H Temperature Source Temporal Temporal Pulse Rate 114 H 114 H Respiratory Rate 22 H 22 H Respiratory Effort Respiratory Pattern Blood Pressure 125/106 H Blood Pressure Mean 112 Pulse Ox 95 95 96 Oxygen Delivery Method Room Air Room Air Nasal Cannula Oxygen Flow Rate (L/min) Fraction of Inspired Oxygen (FIO2) 11/04/21 21:11 11/04/21 21:16 11/04/21 21:19 Temperature 102.3 F H Temperature Source Oral Pulse Rate 135 H Respiratory Rate 28 H Respiratory Effort Short of Breath Respiratory Pattern Tachypnea Tachypnea Blood Pressure Blood Pressure Mean Pulse Ox Oxygen Delivery Method Room Air Oxygen Flow Rate (L/min) Fraction of Inspired Oxygen (FIO2) 11/04/21 21:34 11/04/21 21:44 11/04/21 22:07 Temperature 98.2 F 98.2 F Temperature Source Oral Oral Pulse Rate 132 H 126 H Respiratory Rate 25 H 27 H Respiratory Effort Respiratory Pattern Blood Pressure 148/94 H 122/80 H Blood Pressure Mean 112 94 Pulse Ox 97 96 Oxygen Delivery Method Nasal Cannula Nasal Cannula Oxygen Flow Rate (L/min) 2 2 Fraction of Inspired Oxygen (FIO2) 98.2 Weight Weight: 205 lb 0.478 oz Body Mass Index (BMI) 31.1 Physical Exam Narrative Physical Examination: General: Awake, alert, oriented x 3 and cooperative, seated upright in the ED bed, fatigued and ill appearing. Skin: Normal color, normal turgor, no icterus, no cyanosis. HEENT: AT/NC, EOMI, PERRLA, dry MM, no carotid bruits or JVD noted. Lungs: Diminished, occasional end expiratory wheezing, increased respiratory rate, rhonchorous BL, no rales. Heart: Improved, still mildly tachycardic with regular rhythm; no gallop, rub audible. Abdomen: Soft, obese, NTTP, ND, distant normal BS, no obvious evidence of HSM. Extremities: No cyanosis, clubbing, or edema. Neurological: Patient awake, alert, oriented x 3, cognitive function intact; pupils equally reactive to light and accommodation, cranial nerves II-XII grossly normal, moving all 4 extremities, no focal deficits, strength moderately to severely global decreased secondary to acute presentation. Psychiatric: Affect appears fatigued and ill-appearing, no acute evidence of depressive or anxiety feelings. Results Lab / Micro Data Result Diagrams: 11/04/21 21:25 11/04/21 21:25 Labs: Laboratory Results - last 24 hr 11/04/21 21:25: WBC 19.4 H, RBC 4.99, Hgb 13.2, Hct 41.6, MCV 83.4, MCH 26.5 L, MCHC 31.7 L, RDW Std Deviation 46.5 H, RDW Coeff of King 15.3 H, Plt Count 309, MPV 9.1, Immature Gran % (Auto) 0.700, Neut % (Auto) 90.3 H, Lymph % (Auto) 3.2 L, [place] % (Auto) 5.4, Eos % (Auto) 0.2, Baso % (Auto) 0.2, Absolute Neuts (auto) 17.5 H, Absolute Lymphs (auto) 0.61 L, Nucleated RBC % 0 11/04/21 21:25: Sodium 133 L, Potassium 3.8, Chloride 101, Carbon Dioxide 28.0, Anion Gap 4 L, BUN 12, Creatinine 0.88, Estim Creat Clear Calc 102.56, Est GFR (MDRD) Af Amer 119, Est GFR (MDRD) Non-Af 99, BUN/Creatinine Ratio 13.6, Glucose 118 H, Calcium 8.8, Total Bilirubin 1.30 H, AST 34, ALT 52, Alkaline Phosphatase 111, Troponin I High Sens 27, Total Protein 8.1, Albumin 3.4, Globulin 4.7 H, Albumin/Globulin Ratio 0.7 L 11/04/21 21:25: Lactic Acid 1.6 11/04/21 21:43: Urine Color Yellow, Urine Clarity Clear, Urine pH 5.0, Ur Specific [place] 1.025, Urine Protein 100 H, Urine Glucose (UA) Normal, Urine Ketones Negative, Urine Occult Blood 25 H, Urine Nitrite Negative, Urine Bilirubin 1 H, Urine Urobilinogen 12 H, Ur Leukocyte Esterase 25 H, Urine RBC 0-5 SEEN, Urine WBC 0 SEEN, Ur Squamous Epith Cells 0 SEEN, Urine Bacteria 0 SEEN, Urine Mucus 0 SEEN Micro: Microbiology 11/04/21 21:17 Nasal Secretion SARS-CoV-2 & FLU Antigen (Rapid) - Final Radiology Impression Chest X-Ray 11/04/21 21:36 IMPRESSION: Scattered patchy opacities, concerning for multifocal infection including viral pneumonia. Electronically Signed: Parvez Rojas MD at 22:03 EDT , Assessment & Plan Assessment/Plan (1) Pneumonia: QUALIFIERS: Laterality: bilateral Lung location: unspecified part of lung Pneumonia type: due to unspecified organism Qualified Code(s): J18.9 - Pneumonia, unspecified organism PLAN: The patient is a 45 y/o M w/ PMHx: Hx SBO status post ex lap, Tobacco use who presents to the [facility] ED on 11/04/21 with history of 2 to 3 days of progressively worsening fatigue, malaise, fevers, chills, non-productive cough, body aches with home temperature as high as 102.2 with significantly worsening dyspnea sensation with pleuritic chest discomfort prompting ED evaluation. #1. Acute Hypoxia secondary to BL Multifocal Community Aquired Pneumonia: Will admit to [facility], maintain on oxygen with wean as tolerated to room air, continue ATC duonebs, PRN albuterol, maintained on IV Rocephin and Azithromycin, HOB, IS parameters w/ pending sputum cultures, request full respiratory viral panel and also COVID PCR as well as urine antigens. Bld cx x 2 obtained in the ED. #2. History SBO: Patient with prior history of exploratory laparotomy. #3. Tobacco Abuse: Encouraged cessation, inpatient consultation per RT, NR if desired. #4. Obesity: Weight loss and lifestyle changes encouraged. #5. DVT prophylaxis: SCDs, Lovenox. Charges/Coding Visit Charges Inpatient E&M: 03849 Init Hosp L2
[2021-11-05] VITALS (12 sets, daily range): BP systolic 109–130; BP diastolic 62–96; PULSE 105–126; RESP 20–27; TEMP 36.8–37.1; O2SAT 93–98
[2021-11-05] MEDS: 0.9% Normal Saline 1,000 ML 125 ML IV ×3 (00:10→16:19)
[2021-11-05] MEDS: guaiFENesin 10 ML UDC (200MG/10ML) 20 ML PO ×4 (00:15→20:27)
[2021-11-05] MEDS: BENZOCAINE/MENTHOL 1 LOZENGE MUCOUS MEM ×7 (00:19→22:49)
[2021-11-05] MEDS: Ipratropium/Albuterol Sulfate 3 ML AMPUL.NEB INHALATION ×5 (02:40→19:14)
[2021-11-05 07:10] LABS: Absolute Lymphocyte Count 0.61 X10^3/uL (0.83-4.51); Absolute Neutrophil Count 12.1 X10^3/uL (2.0-7.7); Basophil# 0.02 X10^3/uL; Basophil% 0.1 % (0-1); Hematocrit 38.8 % (40-54); Hemoglobin 12.1 g/dL (13.0-16.5); Lymphocyte # 0.61 X10^3/ul (0.83-4.51); Lymphocyte % 4.4 % (19-41); Mean Corp Hgb Conc 31.2 g/dL (32-36); Mean Corpuscular Volume 83.4 fL (80-94); Mean Platelet Vol. 9.5 fl (6.2-12.0); Monocyte% 7.9 % (0-10); NRBC Flagged by Analyzer 0 % (0-5); Neutrophil % 87.1 % (47-70); Platelet Count 270 K/mm3 (150-450); RBC Distribution Width CV 15.5 % (11.6-14.6); RBC Distribution Width SD 47.3 fl (35.1-43.9); Red Blood Count 4.65 M/mm3 (4.6-6.2); White Blood Count 13.9 K/mm3 (4.4-11.0)
[2021-11-05 07:33] LABS: ALB/GLOB Ratio 0.7 RATIO (0.9-2.4); AST(SGOT) 40 U/L (15-37); Alanine Aminotransfer ALT/SGPT 53 U/L (16-61); Albumin, Serum 3.1 g/dL (3.2-5.0); Alkaline Phosphatase 115 U/L (45-117); Anion Gap 3 (5-15); BUN 12 mg/dL (7-18); BUN/Creat Ratio 14.2 RATIO (10-20); Calcium,Total 8.7 mg/dL (8.5-10.1); Chloride 103 mmol/L (98-107); Creatinine, Serum 0.84 mg/dL (0.70-1.30); EST Glomerular Filtration Rate 104 mL/min (>60); Est Glom Filt Rate - Afr Amer 126 mL/min (>60); Estimated Creatinine Clearance 107.44 ml/min; Globulin 4.5 g/dL (2.2-4.2); Glucose 101 mg/dL (74-106); Potassium 4.1 mmol/L (3.5-5.1); Protein, Total 7.6 g/dL (6.4-8.2); Sodium Level 132 mmol/L (136-145)
[2021-11-05] MEDS: Acetaminophen 325 MG Tablet 650 MG PO ×2 (08:47→17:39)
[2021-11-05] MEDS: Enoxaparin 40 MG/0.4 ML Syringe SC (10:35)
[2021-11-05] MEDS: Famotidine 20 MG Tablet PO ×2 (10:35→21:30)
--- NOTE | 2021-11-05 11:10 | CASEMGMT ---
ALLY DAVIS assessment: Face to Face with patient for initial transition planning/care coordination assessment. ALLY DAVIS introduced self and role at [facility], pt voices understanding and consents to assessment. Pt is sitting up in bed in no distress on room air. Pt is A/Ox4 and answers all questions appropriately. Care providers, pharmacy, and demographics verified. Presentation: Pt with SOB since yesterday, fever for couple days Admitting dx: Bilat multifocal pna PCP: Pt states no PCP but given list of local Specialists: None [facility] Insurance: SP-pt states has new FT job and is eligible for insurance but not sure when it starts. Prescription Benefit: SP Living Will/HPOA: Pt states no LW/HPOA but would like info and AD info provided. LNOK: Sangita Kaufman, mother Living Arrangements: Pt lives with rommate in 1 story apt with steps and states no concerns at home. Pt is independent with ADL's. Transportation: Pt drives self and states no transportation concerns. DME/HHC: Pt states no current DME or need for any further DME. Pt states no hx of HHC or SNF. Pt states no concerns with going home at time of discharge. 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 Pt states quit smoking cigarettes 2 weeks ago and does not drink ETOH. Pt states no concerns/needs. CM to follow for any further discharge planning/needs. Advised pt to ask for CM if any further questions/concerns/needs arise, voices understanding. Pt Goal: Home Plan[place] ALLY DAVIS
--- NOTE | 2021-11-05 12:29 | PN.HOSP_ITS ---
Subjective Subjective Patient seen and examined. He says he is starting to feel better, though he feels a bit short of breath. He is still coughing. He is still tachypneic and tachycardic. REview of systems is otherwwise negative. Objective Data Objective Data Vital Signs: Vital Signs Temp Pulse Resp BP Pulse Ox 98.3 F 116 H 22 H 113/74 95 11/05/21 10:14 11/05/21 10:59 11/05/21 10:59 11/05/21 10:14 11/05/21 10:59 Oxygen Flow Rate (L/min) 3 Oxygen Delivery Method Room Air Weight: 197 lb 15.602 oz Body Mass Index (BMI) 30.1 Intake & Output: Intake and Output for Last 24 Hours 11/03/21 11/04/21 11/05/21 23:59 23:59 23:59 Intake Total 1305 / 1305 1400 / 1400 Output Total 200 / 200 Balance 1305 / 1305 1200 / 1200 Lab / Micro Data Result Diagrams: 11/05/21 05:51 11/05/21 05:51 Labs: Laboratory Results - last 24 hr 11/04/21 21:25: WBC 19.4 H, RBC 4.99, Hgb 13.2, Hct 41.6, MCV 83.4, MCH 26.5 L, MCHC 31.7 L, RDW Std Deviation 46.5 H, RDW Coeff of King 15.3 H, Plt Count 309, MPV 9.1, Immature Gran % (Auto) 0.700, Neut % (Auto) 90.3 H, Lymph % (Auto) 3.2 L, [place] % (Auto) 5.4, Eos % (Auto) 0.2, Baso % (Auto) 0.2, Absolute Neuts (auto) 17.5 H, Absolute Lymphs (auto) 0.61 L, Nucleated RBC % 0 11/04/21 21:25: Sodium 133 L, Potassium 3.8, Chloride 101, Carbon Dioxide 28.0, Anion Gap 4 L, BUN 12, Creatinine 0.88, Estim Creat Clear Calc 102.56, Est GFR (MDRD) Af Amer 119, Est GFR (MDRD) Non-Af 99, BUN/Creatinine Ratio 13.6, Glucose 118 H, Calcium 8.8, Total Bilirubin 1.30 H, AST 34, ALT 52, Alkaline Phosphatase 111, Troponin I High Sens 27, Total Protein 8.1, Albumin 3.4, Globulin 4.7 H, Albumin/Globulin Ratio 0.7 L 11/04/21 21:25: Lactic Acid 1.6 11/04/21 21:43: Urine Color Yellow, Urine Clarity Clear, Urine pH 5.0, Ur Specific [place] 1.025, Urine Protein 100 H, Urine Glucose (UA) Normal, Urine Ketones Negative, Urine Occult Blood 25 H, Urine Nitrite Negative, Urine Bilirubin 1 H, Urine Urobilinogen 12 H, Ur Leukocyte Esterase 25 H, Urine RBC 0- 5 SEEN, Urine WBC 0 SEEN, Ur Squamous Epith Cells 0 SEEN, Urine Bacteria 0 SEEN, Urine Mucus 0 SEEN 11/04/21 22:44: COVID-19 ([place]) Not Detected 11/05/21 05:51: WBC 13.9 H, RBC 4.65, Hgb 12.1 L, Hct 38.8 L, MCV 83.4, MCH 26.0 L, MCHC 31.2 L, RDW Std Deviation 47.3 H, RDW Coeff of King 15.5 H, Plt Count 270, MPV 9.5, Immature Gran % (Auto) 0.500, Neut % (Auto) 87.1 H, Lymph % (Auto) 4.4 L, [place] % (Auto) 7.9, Eos % (Auto) 0.0, Baso % (Auto) 0.1, Absolute Neuts (auto) 12.1 H, Absolute Lymphs (auto) 0.61 L, Nucleated RBC % 0 11/05/21 05:51: Sodium 132 L, Potassium 4.1, Chloride 103, Carbon Dioxide 26.0, Anion Gap 3 L, BUN 12, Creatinine 0.84, Estim Creat Clear Calc 107.44, Est GFR (MDRD) Af Amer 126, Est GFR (MDRD) Non-Af 104, BUN/Creatinine Ratio 14.2, Glucose 101, Calcium 8.7, Total Bilirubin 1.10 H, AST 40 H, ALT 53, Alkaline Phosphatase 115, Total Protein 7.6, Albumin 3.1 L, Globulin 4.5 H, Albumin/Globulin Ratio 0.7 L Micro: Microbiology 11/05/21 03:00 Sputum, Expectorated/Coughed Gram Stain - Final 11/04/21 22:44 Mucosa - Nose Respiratory Panel (PCR) - Final Rhinovirus 11/04/21 21:43 Urine, Clean Catch Legionella Antigen - Final 11/04/21 21:43 Urine, Clean Catch Streptococcus pneumoniae Antigen (M - Final 11/04/21 21:17 Nasal Secretion SARS-CoV-2 & FLU Antigen (Rapid) - Final Radiography Diagnostic Testing: Radiology Impression Chest X-Ray 11/04/21 21:36 IMPRESSION: Scattered patchy opacities, concerning for multifocal infection including viral pneumonia. Electronically Signed: Parvez Rojas MD at 22:03 EDT , Rhythm Strip Rhythm Strip: Sinus Tach Rate: 128 Ectopy: None Physical Exam Const alert, oriented x3 and no apparent distress Exam Limitations: no limitations HEENT head/scalp atraumatic, moist oral mucous membranes and oropharynx normal Head and Scalp: normocephalic Eyes PERRL, EOMs intact bilaterally and conjunctivae normal Neck no lymphadenopathy, supple and no JVD Resp Resp Narrative: mildly diminished breath sounds bibasally, no wheezes or crackles.mildly tachypneic, on room air. Cardio regular rhythm, S1 normal heart sound, S2 normal heart sound and no murmurs Cardio Narrative: tachycardic GI normal to inspection, nondistended, normoactive bowel sounds, soft to palpation, non-tender and non-distended Extremity normal to inspection, full ROM and no clubbing, cyanosis or edema Peripheral Pulses: Yes pulses 2+ throughout Skin no rashes or lesions noted Neuro oriented x3, CN's II-XII intact bilaterally and moves all extremities Sensorium / Orientation: awake and alert Psych affect normal Assessment & Plan Assessment/Plan (1) Sepsis: (2) Pneumonia: QUALIFIERS: Pneumonia type: due to unspecified organism Laterality: bilateral Lung location: unspecified part of lung Qualified Code(s): J18.9 - Pneumonia, unspecified organism PLAN: #Bilateral multifocal pneumonia * on IV rocephin and azithromycin * respiratory panel positive for rhinovirus * urine for strep and legionella are negative * breathing treatment with bronchodilators * titrate oxygen to maintain sats .90% * blood cultures pending * #history of nicotine dependence: says he quit 2 weeks ago. Counseled to continue abstaining. Nicotine patch 21mg daily #History of small bowel obstruction: has a history of exploratory laparotomy. Stable. GERD: on PPI DVT prophylaxis: lovenox Charges/Coding Visit Charges Inpatient E&M: 16322 Subs Hosp L2
[2021-11-05] MEDS: Ceftriaxone 1 GM/50 ML BAG IV (21:30)
[2021-11-05] MEDS: MELATONIN 3 MG TABLET PO (22:17)
[2021-11-06] VITALS (10 sets, daily range): BP systolic 105–136; BP diastolic 73–88; PULSE 90–117; RESP 18–24; TEMP 36.8–37.7; O2SAT 92–98
[2021-11-06] MEDS: 0.9% Normal Saline 1,000 ML 125 ML IV ×3 (00:32→17:42)
[2021-11-06] MEDS: guaiFENesin 10 ML UDC (200MG/10ML) 20 ML PO ×4 (00:32→21:31)
[2021-11-06] MEDS: Acetaminophen 325 MG Tablet 650 MG PO ×2 (03:02→14:26)
[2021-11-06] MEDS: BENZOCAINE/MENTHOL 1 LOZENGE MUCOUS MEM ×3 (04:38→21:32)
[2021-11-06] MEDS: Ipratropium/Albuterol Sulfate 3 ML AMPUL.NEB INHALATION ×4 (06:32→19:33)
[2021-11-06] MEDS: Enoxaparin 40 MG/0.4 ML Syringe SC (08:53)
[2021-11-06] MEDS: Famotidine 20 MG Tablet PO ×2 (08:53→20:25)
[2021-11-06 09:05] LABS: Absolute Lymphocyte Count 1.55 X10^3/uL (0.83-4.51); Absolute Neutrophil Count 5.2 X10^3/uL (2.0-7.7); Basophil# 0.02 X10^3/uL; Basophil% 0.3 % (0-1); Eosinophil# 0.04 X10^3/uL; Eosinophils% 0.5 % (0-5); Hematocrit 36.7 % (40-54); Hemoglobin 11.4 g/dL (13.0-16.5); Lymphocyte # 1.55 X10^3/ul (0.83-4.51); Lymphocyte % 20.7 % (19-41); Mean Corp Hgb Conc 31.1 g/dL (32-36); Mean Corpuscular Hgb 25.9 pg (27.0-32.0); Mean Corpuscular Volume 83.2 fL (80-94); Mean Platelet Vol. 9.1 fl (6.2-12.0); Monocyte# 0.63 X10^3/uL; Monocyte% 8.4 % (0-10); NRBC Flagged by Analyzer 0 % (0-5); Neutrophil # 5.22 X10^3/uL (2.7-7.7); Neutrophil % 69.6 % (47-70); Platelet Count 267 K/mm3 (150-450); RBC Distribution Width CV 15.8 % (11.6-14.6); RBC Distribution Width SD 47.8 fl (35.1-43.9); Red Blood Count 4.41 M/mm3 (4.6-6.2); White Blood Count 7.5 K/mm3 (4.4-11.0)
[2021-11-06 09:28] LABS: Anion Gap 5 (5-15); BUN 14 mg/dL (7-18); BUN/Creat Ratio 17.2 RATIO (10-20); Calcium,Total 8.2 mg/dL (8.5-10.1); Chloride 108 mmol/L (98-107); Creatinine, Serum 0.81 mg/dL (0.70-1.30); EST Glomerular Filtration Rate 109 mL/min (>60); Est Glom Filt Rate - Afr Amer 132 mL/min (>60); Estimated Creatinine Clearance 111.42 ml/min; Glucose 171 mg/dL (74-106); Potassium 3.6 mmol/L (3.5-5.1); Sodium Level 137 mmol/L (136-145)
--- NOTE | 2021-11-06 09:53 | PN.HOSP_ITS ---
Subjective Subjective Patient seen and examined. He says he feels his breathing is improving. He still coughing and bringing up a lot of sputum. He still remains mildly tachycardic and tachypneic. He thinks his tachycardia is from anxiety. He only has some pleuritic chest pain with the excessive coughing and denies any hemoptysis. Review of symptoms otherwise negative. Objective Data Objective Data Vital Signs: Vital Signs Temp Pulse Resp BP Pulse Ox 99 F 104 H 24 H 105/77 92 11/06/21 04:37 11/06/21 06:32 11/06/21 06:32 11/06/21 02:53 11/06/21 06:32 Oxygen Flow Rate (L/min) 3 Oxygen Delivery Method Room Air Weight: 204 lb 12.951 oz Body Mass Index (BMI) 30.1 Intake & Output: Intake and Output for Last 24 Hours 11/04/21 11/05/21 11/06/21 23:59 23:59 23:59 Intake Total 1305 / 1305 3397.08 / 3397.08 3000 / 3000 Output Total 200 / 200 800 / 800 Balance 1305 / 1305 3197.08 / 3197.08 2200 / 2200 Lab / Micro Data Result Diagrams: 11/06/21 08:50 11/06/21 08:50 Labs: Laboratory Results - last 24 hr 11/06/21 08:50: WBC 7.5, RBC 4.41 L, Hgb 11.4 L, Hct 36.7 L, MCV 83.2, MCH 25.9 L, MCHC 31.1 L, RDW Std Deviation 47.8 H, RDW Coeff of King 15.8 H, Plt Count 267, MPV 9.1, Immature Gran % (Auto) 0.500, Neut % (Auto) 69.6, Lymph % (Auto) 20.7, [place] % (Auto) 8.4, Eos % (Auto) 0.5, Baso % (Auto) 0.3, Absolute Neuts (auto) 5.2, Absolute Lymphs (auto) 1.55, Nucleated RBC % 0 11/06/21 08:50: Sodium 137, Potassium 3.6, Chloride 108 H, Carbon Dioxide 24.0, Anion Gap 5, BUN 14, Creatinine 0.81, Estim Creat Clear Calc 111.42, Est GFR (MDRD) Af Amer 132, Est GFR (MDRD) Non-Af 109, BUN/Creatinine Ratio 17.2, Glucose 171 H, Calcium 8.2 L Micro: Microbiology 11/04/21 22:44 Mucosa - Nose Respiratory Panel (PCR) - Final Rhinovirus 11/05/21 03:00 Sputum, Expectorated/Coughed Gram Stain - Final 11/04/21 21:43 Urine, Clean Catch Legionella Antigen - Final 11/04/21 21:43 Urine, Clean Catch Streptococcus pneumoniae Antigen (M - Final 11/04/21 21:17 Nasal Secretion SARS-CoV-2 & FLU Antigen (Rapid) - Final Rhythm Strip Rhythm Strip: Sinus Tach Rate: 128 Ectopy: None Physical Exam Const alert, oriented x3 and no apparent distress Exam Limitations: no limitations HEENT head/scalp atraumatic, moist oral mucous membranes and oropharynx normal Head and Scalp: normocephalic Eyes PERRL, EOMs intact bilaterally and conjunctivae normal Neck no lymphadenopathy, supple and no JVD Resp Resp Narrative: mildly diminished breath sounds bibasally, no wheezes or crackles.mildly tachypneic, on room air. Cardio regular rhythm, S1 normal heart sound, S2 normal heart sound and no murmurs Cardio Narrative: mildly tachycardic GI normal to inspection, nondistended, normoactive bowel sounds, soft to palpation, non-tender and non-distended Extremity normal to inspection, full ROM and no clubbing, cyanosis or edema Peripheral Pulses: Yes pulses 2+ throughout Skin no rashes or lesions noted Neuro oriented x3, CN's II-XII intact bilaterally and moves all extremities Sensorium / Orientation: awake and alert Psych affect normal Assessment & Plan Assessment/Plan (1) Sepsis: (2) Pneumonia: QUALIFIERS: Pneumonia type: due to unspecified organism Laterality: bilateral Lung location: unspecified part of lung Qualified Code(s): J18.9 - Pneumonia, unspecified organism PLAN: #Bilateral multifocal pneumonia * remains on IV rocephin and azithromycin * respiratory panel positive for rhinovirus * urine for strep and legionella are negative * breathing treatment with bronchodilators * titrate oxygen to maintain sats > 90% * blood cultures pending * wbc is down to 7.5 * Sputum cultures growing 2+ gram-positive cocci with 1+ gram variable rods and 2+ white blood cells. * * #RHinovirus infection: as above #history of nicotine dependence: says he quit 2 weeks ago. Counseled to continue abstaining. Nicotine patch 21mg daily #History of small bowel obstruction: has a history of exploratory laparotomy. Stable. GERD: on PPI DVT prophylaxis: lovenox Charges/Coding Visit Charges Inpatient E&M: 50130 Subs Hosp L2
[2021-11-06] MEDS: Ceftriaxone 1 GM/50 ML BAG IV (20:25)
[2021-11-07] VITALS (7 sets, daily range): BP systolic 131–150; BP diastolic 95–101; PULSE 88–115; RESP 18–20; TEMP 36.7–36.8; O2SAT 95–97
[2021-11-07] MEDS: BENZOCAINE/MENTHOL 1 LOZENGE MUCOUS MEM ×2 (00:31→08:22)
[2021-11-07] MEDS: 0.9% Normal Saline 1,000 ML 125 ML IV (02:45)
[2021-11-07 06:22] LABS: Absolute Lymphocyte Count 1.63 X10^3/uL (0.83-4.51); Absolute Neutrophil Count 6.6 X10^3/uL (2.0-7.7); Basophil# 0.03 X10^3/uL; Basophil% 0.3 % (0-1); Eosinophil# 0.08 X10^3/uL; Eosinophils% 0.9 % (0-5); Hematocrit 36.6 % (40-54); Hemoglobin 11.5 g/dL (13.0-16.5); Lymphocyte # 1.63 X10^3/ul (0.83-4.51); Lymphocyte % 17.5 % (19-41); Mean Corp Hgb Conc 31.4 g/dL (32-36); Mean Corpuscular Hgb 25.8 pg (27.0-32.0); Mean Corpuscular Volume 82.2 fL (80-94); Mean Platelet Vol. 9.2 fl (6.2-12.0); Monocyte# 0.86 X10^3/uL; Monocyte% 9.3 % (0-10); NRBC Flagged by Analyzer 0 % (0-5); Neutrophil # 6.64 X10^3/uL (2.7-7.7); Neutrophil % 71.5 % (47-70); Platelet Count 304 K/mm3 (150-450); RBC Distribution Width CV 15.9 % (11.6-14.6); RBC Distribution Width SD 48.1 fl (35.1-43.9); Red Blood Count 4.45 M/mm3 (4.6-6.2); White Blood Count 9.3 K/mm3 (4.4-11.0)
[2021-11-07 06:46] LABS: Anion Gap 5 (5-15); BUN 12 mg/dL (7-18); BUN/Creat Ratio 15.8 RATIO (10-20); Calcium,Total 8.4 mg/dL (8.5-10.1); Chloride 106 mmol/L (98-107); Creatinine, Serum 0.76 mg/dL (0.70-1.30); EST Glomerular Filtration Rate 118 mL/min (>60); Est Glom Filt Rate - Afr Amer 142 mL/min (>60); Estimated Creatinine Clearance 118.75 ml/min; Glucose 104 mg/dL (74-106); Potassium 3.9 mmol/L (3.5-5.1); Sodium Level 138 mmol/L (136-145)
[2021-11-07] MEDS: Acetaminophen 325 MG Tablet 650 MG PO (08:22)
[2021-11-07] MEDS: guaiFENesin 10 ML UDC (200MG/10ML) 20 ML PO (08:22)
[2021-11-07] MEDS: hydrOXYzine PAM 25 MG Capsule PO (08:35)
[2021-11-07] MEDS: MethylPREDNISolone 125 MG/2 ML Vial IV (10:04)
[2021-11-07] MEDS: Enoxaparin 40 MG/0.4 ML Syringe SC (10:04)
[2021-11-07] MEDS: Pantoprazole Sodium 20 MG Tablet PO (10:04)
--- NOTE | 2021-11-07 11:11 | DS.PCM_ITS ---
Providers Date of Admission: 11/04/21 Date of Discharge: 11/07/21 Primary Care Physician: No Primary Care Phys Reason For Visit: BL MULTIFOCAL PNA Diagnosis Discharge Diagnosis (1) Sepsis: Status: Acute Code(s): A41.9 - Sepsis, unspecified organism (2) Pneumonia: Status: Acute Code(s): J18.9 - Pneumonia, unspecified organism Qualifiers: Pneumonia type: due to unspecified organism Laterality: bilateral Lung location: unspecified part of lung Qualified Code(s): J18.9 - Pneumonia, unspecified organism Medications at Discharge Home Medications esomeprazole magnesium [Nexium] 20 mg PO DAILY 11/04/21 albuterol sulfate 1 inh INHALATION Q6H PRN #8.5 g 11/07/21 prednisone 10 mg PO DAILY #30 tab 11/07/21 Hospital Course Operations None Procedures None Summary of Care Provided Minutes Spent on Discharge: 38 Hospital Course: Mr. Romo is a 45-year-old white male who presented to the emergency department at [facility] on 11/04/2021 with a chief complaint of cough, dyspnea, fever, and nausea. Upon presentation the patient had had symptoms up for approximately 2 to 3 days and had been progressively worsening. He also complained of fatigue, malaise, chills as well as a nonproductive cough. He stated his fever was as high as 102.2 at home. He complained of significantly worsening dyspnea with exertion and some pleuritic type chest pain secondary to his coughing. He was brought in by the EMS and his lowest oxygen saturation was 94% on room air. He did indicate that he lives with a friend who had not been well also. In the emergency department he had a temperature of 101.3, heart rate of 114, blood pressure of 125/106, respiratory rate of 22, and oxygen saturations were 95% on room air. His CBC shows no elevated white count at 19.4 with a hemoglobin of 13.2 and a normal platelet count. He did have a left shift with lymphopenia. His CMP was overall unremarkable. A lactic acid was obtained and found to be 1.6. High-sensitivity troponin was 27. A chest x-ray showed patchy bilateral opacities that were concerning for multifocal viral pneumonia. His rapid flu swab was negative. Rapid COVID-19 swab was negative. Strep pneumo and Legionella antigens were obtained and were negative. Blood cultures were negative. A respiratory viral panel was positive for rhinovirus. He had a Gram stain that showed normal respiratory jacky but was otherwise negative. He was initially placed on antibiotics but when his cultures resulted negative these were discontinued. He did have some wheezing on exam and therefore along with his scheduled nebulizers steroids were initiated. He was maintained on room air throughout his hospitalization. Oxygen saturations on the day of discharge were between 95 and 99% on room air. We assessed him with an ambulatory pulse ox and is ambulatory pulse ox was 95% on room air. He did complain of some persistent shortness of breath however clinically he appeared to be stable for discharge. He was discharged home with a tapering dose of steroids as well is an albuterol inhaler. He currently has no primary care physician but a referral to Dr. Choudhary was made at discharge and he was instructed to follow-up in the next 2 weeks. The patient does indicate he has a history of tobacco abuse and quit smoking 2 weeks ago. He may benefit from PFTs once his respiratory status is improved. He is to go back to work on , 11/10/2021. Discharge diagnoses: Viral pneumonia secondary to rhinovirus Shortness of breath Cough Fever GERD History of tobacco abuse--> patient stated he quit 2 weeks ago History of small bowel obstruction Patient did not meet requirements for sepsis and therefore sepsis was ruled out/patient was never hypoxic and therefore did not have acute hypoxic respiratory failure Physical Exam Const alert, oriented x3 and no apparent distress Constitutional Narrative: Obese, middle-aged, white male sitting up in chair at the bedside, watching television, appears mildly anxious, oxygen sats are 98% on room air General Appearance: cooperative, comfortable, well kempt and well developed Orientation / Consciousness: awake Exam Limitations: no limitations Nutritional Appearance: obese HEENT normocephalic, head/scalp atraumatic, hearing grossly normal bilaterally and moist oral mucous membranes HEENT Narrative: Mallampati is 2-3, no thrush, dentition is fair Eyes PERRL, EOMs intact bilaterally and conjunctivae normal Eyes Narrative: No scleral icterus Neck no lymphadenopathy, supple and no JVD Neck Narrative: Trachea is midline, no thyroid enlargement Resp normal respiratory effort, no retractions and no use of accessory muscles Resp Narrative: Patient with bilateral scattered end expiratory wheeze with coarse lung sounds at bilateral bases left greater than right Auscultation: wheezes Cardio regular rate, regular rhythm, S1 normal heart sound, S2 normal heart sound, no murmurs, no rub, no gallops, no clicks and no JVD GI normal to inspection, nondistended, normoactive bowel sounds, soft to palpation, non-tender and non-distended; Negative for hepatosplenomegaly Extremity normal to inspection and no clubbing, cyanosis or edema Skin no rashes or lesions noted, no wounds, skin turgor normal and no jaundice Neuro oriented x3, CN's II-XII intact bilaterally and moves all extremities Sensorium / Orientation: awake and alert Speech: speech normal Psych Psych Narrative: Patient appears fairly anxious Mood & Affect: anxious Weight / BMI Weight Weight: 95.1 kg Body Mass Index (BMI) 30.1 ABG / Lab / Microbiology Data Result Diagrams: 11/07/21 05:50 11/07/21 05:50 Laboratory: Laboratory Results - last 24 hr 11/07/21 05:50: WBC 9.3, RBC 4.45 L, Hgb 11.5 L, Hct 36.6 L, MCV 82.2, MCH 25.8 L, MCHC 31.4 L, RDW Std Deviation 48.1 H, RDW Coeff of King 15.9 H, Plt Count 304, MPV 9.2, Immature Gran % (Auto) 0.500, Neut % (Auto) 71.5 H, Lymph % (Auto) 17.5 L, [place] % (Auto) 9.3, Eos % (Auto) 0.9, Baso % (Auto) 0.3, Absolute Neuts (auto) 6.6, Absolute Lymphs (auto) 1.63, Nucleated RBC % 0 11/07/21 05:50: Sodium 138, Potassium 3.9, Chloride 106, Carbon Dioxide 27.0, Anion Gap 5, BUN 12, Creatinine 0.76, Estim Creat Clear Calc 118.75, Est GFR (MDRD) Af Amer 142, Est GFR (MDRD) Non-Af 118, BUN/Creatinine Ratio 15.8, Glucose 104, Calcium 8.4 L Microbiology: Microbiology 11/05/21 03:00 Sputum, Expectorated/Coughed Gram Stain - Final 11/05/21 03:00 Sputum, Expectorated/Coughed Respiratory Culture - Preliminary Appears to be normal respiratory jacky. Further studies to follow. 11/04/21 22:44 Mucosa - Nose Respiratory Panel (PCR) - Final Rhinovirus 11/04/21 21:43 Urine, Clean Catch Legionella Antigen - Final 11/04/21 21:43 Urine, Clean Catch Streptococcus pneumoniae Antigen (M - Final 11/04/21 21:17 Nasal Secretion SARS-CoV-2 & FLU Antigen (Rapid) - Final D/C Instructions Discharge Diet: No restrictions Discharge Activity: Return to Normal Activity Return to work on: 11/10/21 Meaningful Use Info Meaningful Use Diagnoses (Choose all that apply): None applicable Discharge Plan Admission Admit Date/Time: 11/04/21 22:29 Primary Reason for Your Visit: Shortness of breath secondary to rhinovirus/viral pneumonia Attending Provider: Luh Manley Primary Care Provider: Care Physician,No Primary Discharge Orders/Prescriptions Prescriptions: New prednisone 10 mg tablet 10 mg PO DAILY Qty: 30 RF: 0 albuterol sulfate 90 mcg/actuation HFA aerosol inhaler 1 inh inhalation Q6H PRN (Reason: shortness of breath or wheezing) Qty: 8.5 RF: 0 Continued esomeprazole magnesium [Nexium] 20 mg Capsule,Delayed Release(Dr/Ec) 20 mg PO DAILY RF: 0 Referrals / Follow Up: Laila Choudhary MD [STAFF PHYSICIAN] - Within 1 Month Care Physician,No Primary [Primary Care Provider] - Disposition Disposition (needs filled in before D/C Order can be placed): Home, Self Care Charges/Coding Visit Charges Inpatient E&M: 81291 Disch Hosp
[2021-11-07] MEDS: Ipratropium/Albuterol Sulfate 3 ML AMPUL.NEB INHALATION (11:15)
== END 2021-11-07 12:34 | disposition home or self-care (01) | DRG 195 ==
LOC: ED 22:38 → MS3 22:42
PROVIDERS: Student in an Organized Health Care Education/Training Program; Admitting Provider Family Medicine; Emergency Provider Emergency Medicine; Visit Provider Internal Medicine
DX: J12.89 Other viral pneumonia (principal); B97.89 Other viral agents as the cause of diseases classified elsewhere; K21.9 Gastro-esophageal reflux disease without esophagitis; D72.810 Lymphocytopenia; Z20.822 Contact with and (suspected) exposure to COVID-19; E66.9 Obesity, unspecified; Z68.30 Body mass index [BMI] 30.0-30.9, adult; Z87.891 Personal history of nicotine dependence
CPT/HCPCS: 36415; 71045; 80048; 80053; 81001; 83605; 84484; 85025; 87040; 87070; 87205; 87428; 87449; 87633; 87635; 93005; 94640; 94664; 97802; 99251; 99285; 99406; J7030; A4216; G0463; J0696; J2405; U0003; U0005

== ENCOUNTER 2023-03-27 13:08 | Emergency (ER) | payer MEDICAID, SELFPAY ==
[2023-03-27 13:09] VITALS: BP 137/109; PULSE 119; RESP 22; TEMP 35.6; O2SAT 99; BMI 29.9
--- NOTE | 2023-03-27 13:21 | EKG12_ITS ---
Test Reason : CP Blood Pressure : / mmHG Vent. Rate : 107 BPM Atrial Rate : 107 BPM P-R Int : 144 ms QRS Dur : 110 ms QT Int : 354 ms P-R-T Axes : 073 067 204 degrees QTc Int : 472 ms Sinus tachycardia Possible Left atrial enlargement ST & T wave abnormality, consider inferior ischemia ST & T wave abnormality, consider anterolateral ischemia Abnormal ECG Confirmed by WEST PELAEZ ([id number]), editor dictionary CLARKE GONZALEZ ([id number]) on 04/12/2023 10:35:27 AM Referred By: RAFAEL/UG Confirmed By:WEST PELAEZ
[2023-03-27] MEDS: Mag Hydrox/Al Hydrox/Simeth 30 ML UDC PO (13:29)
[2023-03-27] MEDS: Famotidine 200 MG/20 ML MDV 20 MG in 0.9% Normal Saline (Pres. free 8 ML 300 MG IV (13:30)
--- NOTE | 2023-03-27 13:37 | ED.VIS.CHEST ---
HPI History of Present Illness Chief Complaint: Chest Other Narrative Narrative: Patient's chief complaint is indigestion. He tells me he ate [employer] after which she felt burning in his stomach and chest. He has had the symptoms when he has had gastritis, he is asking me for a GI cocktail. He has no back pain or tearing sensation. He has no pleuritic component. He has no lower extremity edema or calf pain. He tells me he was on antacids and ran out a few weeks ago. PFSH PFSH Medical History Diverticulitis GERD (gastroesophageal reflux disease) Obesity Small bowel obstruction Tobacco use Home Medications esomeprazole magnesium 20 mg capsule,delayed release (Nexium) 20 mg PO DAILY GERD 11/04/21 [History Last Taken Unknown] albuterol sulfate 90 mcg/actuation aerosol inhaler 1 inh inhalation Q6H PRN shortness of breath or wheezing #8.5 grams 11/07/21 [Rx Last Taken Unknown] prednisone 10 mg tablet 10 mg PO DAILY #30 tabs 11/07/21 [Rx Last Taken Unknown] hydrochlorothiazide 25 mg tablet 25 mg PO QODAY #30 tabs 03/27/23 [Rx Last Taken Unknown] metoprolol tartrate 50 mg tablet 50 mg PO DAILY #30 tabs 03/27/23 [Rx Last Taken Unknown] omeprazole 20 mg capsule,delayed release 20 mg PO DAILY #30 CAPSULES 03/27/23 [Rx Last Taken Unknown] Allergy/AdvReac Type Severity Reaction Status Date / Time No Known Allergies Allergy Verified 03/27/23 13:09 Surgical History (Updated 11/04/21 @ 22:[address] Ese Payen MD) Hx of exploratory laparotomy Social History (Updated 11/04/21 @ 22:[address] Ese Payne MD) household members: friend(s) Smoking Status: Former smoker how long ago did patient quit smoking: Quit x 1 week, smoked ~ 1 ppd since teen until 10/28/21.,= alcohol intake: current alcohol intake frequency: a few times a month substance use type: does not use ROS ROS ED ROS Narrative Past medical history: Reviewed Medications: Reviewed Social history: Noncontributory Review of systems: All systems negative except as indicated General: No fever Eyes: No visual changes ENT: No upper airway congestion, normal voice Neck: No neck pain Cardiovascular: Chest burning Respiratory: No shortness of breath or cough Gastrointestinal: Epigastric pain Genitourinary: No dysuria Musculoskeletal: Denies myalgias no difficulty with ambulation Skin: No rash Neurological: No memory loss, confusion or any focal weakness EXAM Physical Exam Narrative Exam Narrative: Physical exam General: Patient is relatively comfortable in the bed. Head: Normocephalic, Atraumatic Eyes: Conjunctiva not pale ENT: Moist mucous membranes Neck: Supple, Nontender, No lymphadenopathy Cardiovascular: Regular rate, Regular rhythm Respiratory: No distress, CTA bilaterally Abdomen: Soft, some epigastric pain to palpation. Back: Nontender, Normal Inspection. Negative for: CVA tenderness Extremities: Nontender, No edema Skin: Normal color, No rash Neurological: Alert, Normal Strength, Normal Sensation Const Vital Signs: 03/27/23 13:09 03/27/23 13:37 Temperature 96.1 F L Temperature Source Temporal Pulse Rate 119 H Respiratory Rate 22 H Blood Pressure 137/109 H Blood Pressure Mean 118 Pulse Ox 99 Oxygen Delivery Method Room Air Room Air MDM MDM MDM Narrative Medical decision making narrative: EKG: Sinus rhythm with a rate of 107. Normal SC interval. QTc slightly prolonged at 472. Patient has ST abnormality inferiorly slight T wave inversion and ST depression, however its not significantly changed from October. Laboratory: Sinus rhythm with a rate in the low 100s without ectopy Chest x-ray: 1 view interpreted by ER doctor as pneumonia, normal cardiac silhouette. Normal lung markings. MDM: Patient received a GI cocktail and Pepcid his symptoms significantly improved. His first troponin is negative. His EKG is abnormal however it has not changed from prior EKG in 2021. I believe more than likely his symptoms are secondary to a GI component. We will rule out according to hospital guidelines for ACS, he will need a second troponin. This will be turned over to the oncoming ED physician. Otherwise I will refill his PPI. Apparently he ran out of his metoprolol which would explain some of his vital signs. I will refill it. Lab Data Labs: Laboratory Results - last 24 hr 03/27/23 13:35 WBC 9.4 RBC 4.68 Hgb 12.1 L Hct 38.9 L MCV 83.1 MCH 25.9 L MCHC 31.1 L RDW Std Deviation 47.8 H RDW Coeff of King 15.7 H Plt Count 403 MPV 9.2 Immature Gran % (Auto) 0.200 Neut % (Auto) 73.2 H Lymph % (Auto) 15.8 L [place] % (Auto) 7.7 Eos % (Auto) 2.5 Baso % (Auto) 0.6 Absolute Neuts (auto) 6.9 Absolute Lymphs (auto) 1.48 Nucleated RBC % 0 Sodium 142 Potassium 3.5 Chloride 106 Carbon Dioxide 29.0 Anion Gap 7 BUN 12 Creatinine 1.01 Estim Creat Clear Calc 87.48 Est GFR (MDRD) Af Amer 102 Est GFR (MDRD) Non-Af 84 BUN/Creatinine Ratio 11.9 Glucose 111 H Calcium 8.9 Troponin I High Sens 20 Discharge Plan Triage Chief Complaint: Chest Other ED Provider: Jaime Mcclain Dx/Rx/DC Orders Clinical Impression: Gastritis, Chest pain Instructions: Treating Gastritis, ED Chest Pain, Uncertain Cause Prescriptions: New omeprazole 20 mg capsule,delayed release(DR/EC) 20 mg PO DAILY Qty: 30 0RF metoprolol tartrate 50 mg tablet 50 mg PO DAILY Qty: 30 0RF hydrochlorothiazide 25 mg tablet 25 mg PO QODAY Qty: 30 0RF No Action esomeprazole magnesium [Nexium] 20 mg Capsule,Delayed Release(Dr/Ec) 20 mg PO DAILY prednisone 10 mg tablet 10 mg PO DAILY Qty: 30 0RF Rx Instructions: 4 tablets x 4 days, 3 tablets x 4 days, 2 tablets x 4 days, 1 tablet x 4 days albuterol sulfate 90 mcg/actuation HFA aerosol inhaler 1 inh inhalation Q6H PRN (Reason: shortness of breath or wheezing) Qty: 8.5 0RF Primary Care Provider: Care Physician,No Primary Referrals: Chandana Cardenas MD [Med Staff - Active Staff] - 2 Days Care Physician,No Primary [Primary Care Provider] -
[2023-03-27 13:49] LABS: Absolute Lymphocyte Count 1.48 X10^3/uL (0.83-4.51); Absolute Neutrophil Count 6.9 X10^3/uL (2.0-7.7); Basophil# 0.06 X10^3/uL; Basophil% 0.6 % (0-1); Eosinophil# 0.23 X10^3/uL; Eosinophils% 2.5 % (0-5); Hematocrit 38.9 % (40-54); Hemoglobin 12.1 g/dL (13.0-16.5); Lymphocyte # 1.48 X10^3/ul (0.83-4.51); Lymphocyte % 15.8 % (19-41); Mean Corp Hgb Conc 31.1 g/dL (32-36); Mean Corpuscular Hgb 25.9 pg (27.0-32.0); Mean Corpuscular Volume 83.1 fL (80-94); Mean Platelet Vol. 9.2 fl (6.2-12.0); Monocyte# 0.72 X10^3/uL; Monocyte% 7.7 % (0-10); NRBC Flagged by Analyzer 0 % (0-5); Neutrophil # 6.86 X10^3/uL (2.7-7.7); Neutrophil % 73.2 % (47-70); Platelet Count 403 K/mm3 (150-450); RBC Distribution Width CV 15.7 % (11.6-14.6); RBC Distribution Width SD 47.8 fl (35.1-43.9); Red Blood Count 4.68 M/mm3 (4.6-6.2); White Blood Count 9.4 K/mm3 (4.4-11.0)
--- NOTE | 2023-03-27 13:55 | RAD_ITS ---
STUDY: X-RAY CHEST REASON FOR EXAM: Male, 47 years old. Chest pain TECHNIQUE: Single AP portable view of the chest. COMPARISON: 11/04/2021 FINDINGS: EKG leads overlie the chest The lungs are clear and expanded. There is no demonstrated pleural abnormality. Normal size heart. Normal mediastinum and rosemarie. Normal visualized pulmonary arteries. Normal visualized aortic arch and descending thoracic aorta. Normal visualized thoracic spine. Normal visualized ribs, clavicles, and shoulders. There is no demonstrated abnormality of the visualized soft tissue structures of the upper abdomen. RAD/Chest 1 View (Portable) IMPRESSION: Normal x-ray examination of the chest. Electronically Signed: Cliff Flores MD at 14:29 EDT ,
[2023-03-27 14:03] LABS: Anion Gap 7 (5-15); BUN 12 mg/dL (7-18); BUN/Creat Ratio 11.9 RATIO (10-20); Calcium,Total 8.9 mg/dL (8.5-10.1); Chloride 106 mmol/L (98-107); Creatinine, Serum 1.01 mg/dL (0.70-1.30); EST Glomerular Filtration Rate 84 mL/min (>60); Est Glom Filt Rate - Afr Amer 102 mL/min (>60); Estimated Creatinine Clearance 87.48 ml/min; Glucose 111 mg/dL (74-106); Potassium 3.5 mmol/L (3.5-5.1); Sodium Level 142 mmol/L (136-145); Troponin-I HS (w/2H Reflex) 20 pg/mL (3.0-78.0)
[2023-03-27 15:09] VITALS: BP 116/70; PULSE 100; RESP 16; O2SAT 97
[2023-03-27 15:42] LABS: Reflex Troponin-HS? (from REC) Y
[2023-03-27 16:20] LABS: Troponin-I HS 23 pg/mL (3.0-78.0)
== END 2023-03-27 16:26 | disposition home or self-care (01) ==
PROVIDERS: Emergency Medicine; Emergency Provider Emergency Medicine; Visit Provider Emergency Medicine
DX: K29.70 Gastritis, unspecified, without bleeding (principal); R07.9 Chest pain, unspecified; Z87.891 Personal history of nicotine dependence
CPT/HCPCS: 71045; 80048; 84484; 85025; 93005; 96374; 99283; A4216; J3490

== ENCOUNTER 2023-05-06 20:11 | Observation (INO) | payer MEDICAID, SELFPAY ==
[2023-05-06 20:12] VITALS: BP 121/98; PULSE 125; RESP 28; TEMP 36.2; O2SAT 96; BMI 19.1
[2023-05-06 20:23] VITALS: O2SAT 96
--- NOTE | 2023-05-06 20:26 | EKG12_ITS ---
Test Reason : SOB Blood Pressure : / mmHG Vent. Rate : 126 BPM Atrial Rate : 126 BPM P-R Int : 140 ms QRS Dur : 098 ms QT Int : 292 ms P-R-T Axes : 076 050 107 degrees QTc Int : 422 ms Sinus tachycardia Possible Left atrial enlargement ST & T wave abnormality, consider anterolateral ischemia Abnormal ECG Confirmed by KELLY LAMB, RAJEEV ([id number]), editorial director JASSON GARCIA ([id number]) on 05/08/2023 12:44:58 PM Referred By: REX Confirmed By:RAJEEV MENDOZA MD
--- NOTE | 2023-05-06 20:30 | ED.VIS.DYS ---
HPI History of Present Illness Chief Complaint: Shortness of Breath Informant: patient Onset/Context/Timing Onset: Days Narrative Narrative: Sent secondary to increasing shortness of breath. He has a history of CHF and states he has not been taking his heart medicine for the past couple of weeks. The last couple days he has noted increasing shortness of breath and feels like his lungs are filling up with fluid. He has not been able to lie down on his back to sleep. He does not have significant peripheral edema. Patient notes that his previous cardiac work-ups have been done in [place] and he has not yet been seen by the cardiology group here for follow-up. He reportedly is supposed to be on hydrochlorothiazide and metoprolol. PFSH PFSH Medical History CHF (congestive heart failure) Diverticulitis Drug use GERD (gastroesophageal reflux disease) Obesity Small bowel obstruction Tobacco use Home Medications esomeprazole magnesium 20 mg capsule,delayed release (Nexium) 20 mg PO DAILY GERD 11/04/21 [History Last Taken Unknown] hydrochlorothiazide 25 mg tablet 25 mg PO QODAY #30 tabs 03/27/23 [Rx Last Taken Unknown] metoprolol tartrate 50 mg tablet 50 mg PO DAILY #30 tabs 03/27/23 [Rx Last Taken Unknown] Allergy/AdvReac Type Severity Reaction Status Date / Time No Known Allergies Allergy Verified 05/06/23 20:11 Surgical History Hx of exploratory laparotomy Social History household members: friend(s) Smoking Status: Former smoker how long ago did patient quit smoking: Quit x 1 week, smoked ~ 1 ppd since teen until 10/28/21.,= alcohol intake: current alcohol intake frequency: a few times a month substance use type: does not use ROS ROS ED Constitutional Constitutional ED: Denies chills or fever(s) Eyes Eyes: Denies discharge from eye(s) ENT ENT ED: Denies discharge from eye(s), rhinorrhea or sore throat Cardiovascular Cardiovascular: Denies chest pain or palpitations Respiratory/Chest Respiratory/Chest: Reports cough and dyspnea Gastrointestinal Gastrointestinal: Denies abdominal pain, nausea or vomiting Genitourinary Genitourinary ED: Denies dysuria Musculoskeletal Musculoskeletal: Denies back pain or extremity pain Integumentary Denies Abrasions or rash Neurologic Neurologic: Denies headache(s) or weakness Psychiatric Psychiatric: Reports anxiety Allergic/Immunologic Allergic/Immunologic ED: Denies lip swelling or urticaria EXAM Physical Exam Const Vital Signs: 05/06/23 20:12 05/06/23 20:23 Temperature 97.2 F L Temperature Source Temporal Pulse Rate 125 H Respiratory Rate 28 H Respiratory Effort Short of Breath Labored Blood Pressure 121/98 H Blood Pressure Mean 105 Pulse Ox 96 Oxygen Delivery Method Room Air Positive well nourished and well developed General Appearance ED: well developed HEENT Reports normocephalic and head/scalp atraumatic Eyes PERRL and EOMs intact bilaterally Neck supple Chest Wall inspection of chest normal and palpation of chest normal Resp Resp Narrative: Tachypnea with mild decreased breath sounds at the bases. Cardio regular rhythm Rate: tachycardic GI non-tender Auscultation: hypoactive bowel sounds Palpation: soft Extremity normal to inspection Neuro oriented x3 and no sensory deficits noted Sensorium / Orientation: alert Motor Exam: strength 5/5 throughout Psych mental status grossly normal Skin no rashes or lesions noted MDM MDM MDM Narrative Medical decision making narrative: Patient placed on playground monitor. EKG obtained to evaluate for cardiac arrhythmia/ischemia. Chest x-ray obtained to evaluate for acute lung pathology, cardiac size, or mediastinal abnormality. Labwork obtained to evaluate for leukocytosis, anemia, and electrolyte derangement. History & Record Review Discussion w/independent historian: Patient Additional record(s) reviewed:: Prior ED visit and Prior labs Lab Data Attestation: I reviewed the patient's lab results. Labs: Laboratory Results - last 24 hr 05/06/23 20:40 WBC 10.8 RBC 4.66 Hgb 12.0 L Hct 39.5 L MCV 84.8 MCH 25.8 L MCHC 30.4 L RDW Std Deviation 46.8 H RDW Coeff of King 15.2 H Plt Count 385 MPV 9.2 Immature Gran % (Auto) 0.300 Neut % (Auto) 72.9 H Lymph % (Auto) 17.8 L [place] % (Auto) 6.3 Eos % (Auto) 2.3 Baso % (Auto) 0.4 Absolute Neuts (auto) 7.9 H Absolute Lymphs (auto) 1.91 Nucleated RBC % 0 Sodium 139 Potassium 4.1 Chloride 107 Carbon Dioxide 27.0 Anion Gap 5 BUN 14 Creatinine 1.05 Estim Creat Clear Calc 70.31 Est GFR (MDRD) Af Amer 97 Est GFR (MDRD) Non-Af 80 BUN/Creatinine Ratio 13.3 Glucose 131 H Calcium 8.1 L Total Bilirubin 0.60 Direct Bilirubin 0.18 AST 21 ALT 28 Alkaline Phosphatase 103 Troponin I High Sens 41 B-Natriuretic Peptide 390.2 H Total Protein 7.2 Albumin 3.2 Globulin 4.0 Radiography Diagnostic Testing: Clinical Impression(s) from Imaging Studies Chest X-Ray 05/06/23 20:37 IMPRESSION: Normal x-ray examination of the chest. Electronically Signed: Fidel Scott MD at 21:05 EDT , EKG Initial EKG: Attestation: I personally reviewed and interpreted this EKG as follows: Interpretation: Sinus Tachycardia (Sinus tach at 126. Lateral ST depression and T wave inversion. This is similar to prior study on March 27, 2023.) Treatment and Re-Evaluation :: CBC was normal white count at 10.8 with a hemoglobin of 12.0. 73% neutrophils noted. Chemistry studies reveal normal renal function with a creatinine 1.05. Glucose is 131. Troponin is normal at 41 but BNP is elevated at 390. LFTs unremarkable. Portable chest x-ray per my interpretation reveals fluid overload. Radiology interpretation is reviewed and they feel the x-ray is normal. I disagree and clinically the patient has fluid overload. Patient is given 40 mg of IV Lasix. I will speak with hospitalist regarding admission given his work of breathing and tachycardia. Discharge Plan Triage Chief Complaint: Shortness of Breath ED Provider: Paulette Oneal Dx/Rx/DC Orders Clinical Impression: CHF (congestive heart failure) Prescriptions: No Action esomeprazole magnesium [Nexium] 20 mg Capsule,Delayed Release(Dr/Ec) 20 mg PO DAILY metoprolol tartrate 50 mg tablet 50 mg PO DAILY Qty: 30 0RF hydrochlorothiazide 25 mg tablet 25 mg PO QODAY Qty: 30 0RF Primary Care Provider: Care Physician,No Primary Referrals: Care Physician,No Primary [Primary Care Provider] - Disposition Disposition: Acute Care Hospital [facility]
--- NOTE | 2023-05-06 20:37 | RAD_ITS ---
STUDY: X-RAY CHEST REASON FOR EXAM: Male, 47 years old. sob TECHNIQUE: Single AP portable view of the chest. COMPARISON: 03/27/2023 FINDINGS: The lungs are clear and expanded. There is no demonstrated pleural abnormality. Normal size heart. Normal mediastinum and rosemarie. Normal visualized pulmonary arteries. Normal visualized aortic arch and descending thoracic aorta. Normal visualized thoracic spine. Normal visualized ribs, clavicles, and shoulders. There is no demonstrated abnormality of the visualized soft tissue structures of the upper abdomen. RAD/Chest 1 View (Portable) IMPRESSION: Normal x-ray examination of the chest. Electronically Signed: Fidel Scott MD at 21:05 EDT ,
[2023-05-06] MEDS: Furosemide 40 MG/4 ML Vial IV (20:50)
[2023-05-06 20:57] LABS: Absolute Lymphocyte Count 1.91 X10^3/uL (0.83-4.51); Absolute Neutrophil Count 7.9 X10^3/uL (2.0-7.7); Basophil# 0.04 X10^3/uL; Basophil% 0.4 % (0-1); Eosinophil# 0.25 X10^3/uL; Eosinophils% 2.3 % (0-5); Hematocrit 39.5 % (40-54); Lymphocyte # 1.91 X10^3/ul (0.83-4.51); Lymphocyte % 17.8 % (19-41); Mean Corp Hgb Conc 30.4 g/dL (32-36); Mean Corpuscular Hgb 25.8 pg (27.0-32.0); Mean Corpuscular Volume 84.8 fL (80-94); Mean Platelet Vol. 9.2 fl (6.2-12.0); Monocyte# 0.68 X10^3/uL; Monocyte% 6.3 % (0-10); NRBC Flagged by Analyzer 0 % (0-5); Neutrophil # 7.85 X10^3/uL (2.7-7.7); Neutrophil % 72.9 % (47-70); Platelet Count 385 K/mm3 (150-450); RBC Distribution Width CV 15.2 % (11.6-14.6); RBC Distribution Width SD 46.8 fl (35.1-43.9); Red Blood Count 4.66 M/mm3 (4.6-6.2); White Blood Count 10.8 K/mm3 (4.4-11.0)
[2023-05-06 21:12] LABS: AST(SGOT) 21 U/L (15-37); Alanine Aminotransfer ALT/SGPT 28 U/L (16-61); Albumin, Serum 3.2 g/dL (3.2-5.0); Alkaline Phosphatase 103 U/L (45-117); Anion Gap 5 (5-15); BUN 14 mg/dL (7-18); BUN/Creat Ratio 13.3 RATIO (10-20); Bilirubin, Direct 0.18 mg/dL (0.00-0.30); Calcium,Total 8.1 mg/dL (8.5-10.1); Chloride 107 mmol/L (98-107); Creatinine, Serum 1.05 mg/dL (0.70-1.30); EST Glomerular Filtration Rate 80 mL/min (>60); Est Glom Filt Rate - Afr Amer 97 mL/min (>60); Estimated Creatinine Clearance 70.31 ml/min; Glucose 131 mg/dL (74-106); Potassium 4.1 mmol/L (3.5-5.1); Protein, Total 7.2 g/dL (6.4-8.2); Sodium Level 139 mmol/L (136-145); Troponin-I HS 41 pg/mL (3.0-78.0)
[2023-05-06 21:26] LABS: BNP,B-Type NATRIURETIC PEPTIDE 390.2 pg/mL (0-100)
--- NOTE | 2023-05-06 21:50 | PCM.HP.STD ---
HPI - General General Date of Admission: 05/06/23 Date of Service: 05/06/23 Chief Complaint: Dyspnea, orthopnea. HPI Narrative The patient is a 47 y/o M w/ PMHx: Self reported CHF unclear type, HTN, Former tobacco use, Substance abuse (reports methamphetamine use), GERD, Hx SBO who presents to the [facility] ED on 05/06/23 with history of worsening dyspnea over the last couple weeks more severe over the last couple days unfortunately not taking any of his medications including his diuretics unable to lay flat with no specific weight gain or increased peripheral edema prompting eventual ED evaluation. He notes that he was evaluated for his heart failure in [place] and he has not arranged to see cardiology locally yet. Work-up in the ED included T97.2, heart rate 125, BP 121/98, respiratory rate 28, 96% on room air, CBC with WBC 10.8, hemoglobin 12, MCV 84.8, platelet 385 with left shift, CMP with glucose 131, unremarkable hepatic profile, troponin 41, BNP 390.2, chest x-ray not marked appearing per radiology but per ED physician concern for congestion, EKG with sinus tachycardia with lateral ST depression T wave inversion similar to prior. Patient reports leaving had a cardiac catheterization in [place] with no PCI history of note. In the ED patient administered lasix 40 mg IV x 1. [facility] Medical History (Updated 05/06/23 @ 21:[address] Ese Payne MD) CHF (congestive heart failure) Diverticulitis Drug use Former tobacco use GERD (gastroesophageal reflux disease) Small bowel obstruction Home Medications esomeprazole magnesium 20 mg capsule,delayed release (Nexium) 20 mg PO DAILY GERD 11/04/21 [History Last Taken Unknown] hydrochlorothiazide 25 mg tablet 25 mg PO QODAY #30 tabs 03/27/23 [Rx Last Taken Unknown] metoprolol tartrate 50 mg tablet 50 mg PO DAILY #30 tabs 03/27/23 [Rx Last Taken Unknown] Allergy/AdvReac Type Severity Reaction Status Date / Time No Known Allergies Allergy Verified 05/06/23 20:11 Family History other other (Denies any marked maternal or paternal family history including HD, DM, CA.) Surgical History Hx of exploratory laparotomy Social History (Updated 05/06/23 @ 22:[address] Ese Payne MD) household members: friend(s) Smoking Status: Former smoker how long ago did patient quit smoking: Smoked ~ 1 ppd since teen until 10/28/21. alcohol intake: current alcohol intake frequency: a few times a month substance use type: methamphetamine ROS ROS Narrative Admission Review of Systems: CONSTITUTIONAL: No weight loss, fever, chills, + weakness or fatigue. HEENT: Eyes: No visual loss, blurred vision, double vision or yellow sclerae. Ears, Nose, Throat: No hearing loss, sneezing, congestion, runny nose or sore throat. SKIN: No rash or itching, lesions, wounds. CARDIOVASCULAR: + Orthopnea. No chest pain, chest pressure or chest discomfort, palpitations, orthopnea, syncopal events. RESPIRATORY: + shortness of breath, orthopnea. No cough or sputum, wheezing, hemoptysis. GASTROINTESTINAL: No anorexia, nausea, vomiting or diarrhea, abdominal pain, melena, BRBPR. GENITOURINARY: No dysuria, frequency, urgency or retention. NEUROLOGICAL: No headache, dizziness, syncope, paralysis, ataxia, numbness or tingling in the extremities, focal weakness, change in bowel or bladder control, seizure. MUSCULOSKELETAL: + muscle, back pain, joint pain or stiffness. HEMATOLOGIC: + anemia. No bleeding or bruising. LYMPHATICS: No enlarged nodes. No history of splenectomy. PSYCHIATRIC: No history of depression or anxiety. ENDOCRINOLOGIC: No reports of sweating, cold or heat intolerance. No polyuria or polydipsia. ALLERGIES: No history of asthma, hives, eczema or rhinitis. Vital Signs Vital Signs Vital Signs: 05/06/23 20:12 05/06/23 20:23 Temperature 97.2 F L Temperature Source Temporal Pulse Rate 125 H Respiratory Rate 28 H Respiratory Effort Short of Breath Labored Blood Pressure 121/98 H Blood Pressure Mean 105 Pulse Ox 96 Oxygen Delivery Method Room Air Weight Weight: 126 lb Body Mass Index (BMI) 19.1 Physical Exam Narrative Physical Examination: General: Awake, alert, oriented x 3 and cooperative, seated upright in the ED bed, fatigued, denies any dyspnea currently. Skin: Normal color, normal turgor, no icterus, no cyanosis. HEENT: AT/NC, EOMI, PERRLA, MMM, poor dentition, no carotid bruits or JVD noted. Lungs: Mildly diminished bases, appropriate effort, no evidence of any distress, despite concerns for overload no obvious appreciated rales, ronchi or wheezing. Heart: Mildly tachycardic with regular rhythm; no gallop, rub audible. Abdomen: Soft, NTTP, ND, mildly hyperactive BS, no HSM. Extremities: No cyanosis, clubbing, or edema. Neurological: Patient awake, alert, oriented as noted, cognitive function intact; pupils equally reactive to light and accommodation, cranial nerves II-XII grossly normal, moving all 4 extremities, no focal deficits, strength mildly to moderately globally decreased secondary to acute presentation complaints. Psychiatric: Affect appears flat, fatigued, no acute evidence of depressive or anxiety feelings. Results Lab / Micro Data 05/06/23 20:40 05/06/23 20:40 Labs: Laboratory Results - last 24 hr 05/06/23 20:40: WBC 10.8, RBC 4.66, Hgb 12.0 L, Hct 39.5 L, MCV 84.8, MCH 25.8 L, MCHC 30.4 L, RDW Std Deviation 46.8 H, RDW Coeff of King 15.2 H, Plt Count 385, MPV 9.2, Immature Gran % (Auto) 0.300, Neut % (Auto) 72.9 H, Lymph % (Auto) 17.8 L, [place] % (Auto) 6.3, Eos % (Auto) 2.3, Baso % (Auto) 0.4, Absolute Neuts (auto) 7.9 H, Absolute Lymphs (auto) 1.91, Nucleated RBC % 0, Sodium 139, Potassium 4.1, Chloride 107, Carbon Dioxide 27.0, Anion Gap 5, BUN 14, Creatinine 1.05, Estim Creat Clear Calc 70.31, Est GFR (MDRD) Af Amer 97, Est GFR (MDRD) Non-Af 80, BUN/Creatinine Ratio 13.3, Glucose 131 H, Calcium 8.1 L, Total Bilirubin 0.60, Direct Bilirubin 0.18, AST 21, ALT 28, Alkaline Phosphatase 103, Troponin I High Sens 41, B-Natriuretic Peptide 390.2 H, Total Protein 7.2, Albumin 3.2, Globulin 4.0 Radiology Impression Chest X-Ray 05/06/23 20:37 IMPRESSION: Normal x-ray examination of the chest. Electronically Signed: Fidel Scott MD at 21:05 EDT , Assessment & Plan Assessment/Plan (1) CHF (congestive heart failure): PLAN: Plan The patient is a 47 y/o M w/ PMHx: Self reported CHF unclear type, HTN, Former tobacco use, Substance abuse, GERD, Hx SBO who presents to the [facility] ED on 05/06/23 with history of worsening dyspnea over the last couple weeks more severe over the last couple days unfortunately not taking any of his medications including his diuretics unable to lay flat with no specific weight gain or increased peripheral edema prompting eventual ED evaluation. #1. Acute Decompensated CHF, presumed diastolic with patient's self-reported history of heart failure: Patient administered IV lasix in the ED, will admit to PCU, maintain on cardiac telemetry, obtain cardiac enzyme series, obtain serial EKGs, continue IV lasix diuresis, monitor I/Os, maintain on intake restriction, continue medical therapy w/ asa, add statin, BB, hold off on CLEMENTINE inhibitor/ARB given low normal BP range with preference for usage of IV Lasix as noted, will obtain TSH and magnesium level. Will obtain echocardiogram. FLP in AM. COVID PCR requested. Will request records from his prior cardiology service. #2. Hyperglycemia, mild: Admission glucose 131, possibly stress response, will continue to monitor and if repeat levels elevated obtain A1c. #3. Chronic normocytic anemia: Admission hemoglobin 12, MCV 84.8, baseline appears 11-12, stable, continue to trend and evaluate outpatient. #4. Hypertension: Continue home regimen including metoprolol, IV Lasix as noted, holding hydrochlorothiazide given BP level in the ED with preference to use IV Lasix at this time, PRN hydralazine. #5. Substance abuse: Urine drug screen requested, reports last usage of methamphetamine was when he first came to town which was approximately 2 months prior but suspect is likely more recent. Patient in the ED is very fatigued and suspect this may be related. #6. Former tobacco use: Encourage continued tobacco cessation. #7. GERD: We will continue patient on PPI. #8. DVT prophylaxis: Lovenox. Charges/Coding Visit Charges Inpatient E&M: 40063 Init Hosp L2
[2023-05-06 22:05] VITALS: PULSE 126; RESP 28
[2023-05-06 23:02] VITALS: BMI 28.9
--- NOTE | 2023-05-06 23:02 | ECHOD_ITS ---
Reason For Study: CHF Procedure This was a 2D Doppler, Color Flow transthoracic echocardiogram. Exam performed portable in patient room. Left Ventricle Severely dilated left ventricle. The estimated ejection fraction is 25 %. There is severe global hypokinesis of the left ventricle. Right Ventricle Normal RV size. Normal systolic function. Atria The left atrium is moderately enlarged. Normal right atrium. Mitral Valve Normal mitral valve. Mild-Moderate (1-2+) eccentric mitral valve insufficiency. Tricuspid Valve Normal tricuspid valve. Mild (1+) tricuspid valve insufficiency. Pulmonary artery systolic pressure is 38 mmHg. Aortic Valve Normal aortic valve. Trisinus/trileaflet aortic valve. Pulmonic Valve Normal pulmonic valve. Great Vessels Normal aortic root. The pulmonary artery is normal size. Inferior vena cava collapse with respiration. Pericardium/Pleural No pericardial effusion. MMode/2D Measurements & Calculations LVIDd: 6.7 cm IVSd: 0.93 cm Ao root diam: 3.3 cm LVIDs: 5.8 cm LVPWd: 0.98 cm LA dimension: 5.3 cm RVDd: 5.0 cm FS: 13.6 % LAV(MOD-bp): 89.5 ml LVAd ap4: 47.8 cm2 SV(MOD-sp4): 64.6 ml LAV(MOD-bp) Indexed: 52.9 ml/m2 LVLd ap4: 8.5 cm LAV(MOD-sp2): 75.2 ml EDV(MOD-sp4): 217.9 ml LAV(MOD-sp4): 99.6 ml EDV(sp4-el): 227.9 ml LVAs ap4: 39.0 cm2 LVLs ap4: 8.2 cm ESV(MOD-sp4): 153.4 ml ESV(sp4-el): 158.0 ml EF(MOD-sp4): 29.6 % EF(sp4-el): 30.7 % SV(sp4-el): 69.9 ml LA A4 area: 27.3 cm2 RA A4 area: 20.0 cm2 TAPSE: 1.1 cm Time Measurements MV dec time: 0.13 sec Doppler Measurements & Calculations MV E max nolberto: 78.4 cm/sec Med Peak E' Nolberto: 6.2 cm/sec MV V2 max: 115.4 cm/sec MV A max nolberto: 54.8 cm/sec E/E' med: 12.7 MV max P.3 mmHg MV E/A: 1.4 MV V2 mean: 42.5 cm/sec MV mean P.1 mmHg MV V2 VTI: 16.8 cm MV P1/2t max nolberto: 114.1 cm/sec Ao V2 max: 91.6 cm/sec LV V1 max: 105.6 cm/sec MV P1/2t: 35.4 msec Ao max P.4 mmHg LV V1 max P.5 mmHg MV dec slope: 943.1 cm/sec2 Ao V2 mean: 68.1 cm/sec LV V1 mean P.5 mmHg Ao mean P.1 mmHg LV V1 mean: 72.2 cm/sec MVA(P1/2t): 6.2 cm2 Ao V2 VTI: 16.6 cm LV V1 VTI: 18.4 cm AV (velocity ratio): 1.1 MR max nolberto: 412.4 cm/sec PA V2 max: 83.8 cm/sec TR max nolberto: 294.7 cm/sec MR max P.0 mmHg TR max P.7 mmHg ECHO/Echo Complete Interpretation Summary The left atrium is moderately enlarged. Severely dilated left ventricle. The estimated ejection fraction is 25 %. Pulmonary artery systolic pressure is 38 mmHg. Mild-Moderate (1-2+) eccentric mitral valve insufficiency. Ordering Physician: Ese Payne Performed By: Mj Caceres RCS
[2023-05-06 23:17] VITALS: BP 148/98; PULSE 130; RESP 20; TEMP 36.6; O2SAT 95
[2023-05-06 23:47] VITALS: PULSE 128
[2023-05-06] MEDS: Atorvastatin Calcium 80 MG Tablet PO (23:47)
[2023-05-06] MEDS: Metoprolol Tartrate 50 MG Tablet PO (23:47)
[2023-05-07 00:24] VITALS: O2SAT 89
[2023-05-07 00:28] LABS: Troponin-I HS 46 pg/mL (3.0-78.0)
[2023-05-07] MEDS: Acetaminophen 325 MG Tablet 650 MG PO (01:51)
[2023-05-07 02:23] LABS: Troponin-I HS 49 pg/mL (3.0-78.0)
[2023-05-07 03:52] VITALS: BMI 28.9
[2023-05-07 04:07] VITALS: BP 113/80; PULSE 95; RESP 16; TEMP 37; O2SAT 96
[2023-05-07 05:32] LABS: Basophil# 0.05 X10^3/uL; Basophil% 0.5 % (0-1); Eosinophil# 0.16 X10^3/uL; Eosinophils% 1.5 % (0-5); Hematocrit 41.2 % (40-54); Hemoglobin 12.5 g/dL (13.0-16.5); Lymphocyte % 19.1 % (19-41); Mean Corp Hgb Conc 30.3 g/dL (32-36); Mean Corpuscular Hgb 25.6 pg (27.0-32.0); Mean Corpuscular Volume 84.3 fL (80-94); Mean Platelet Vol. 8.8 fl (6.2-12.0); Monocyte# 0.73 X10^3/uL; Monocyte% 6.6 % (0-10); NRBC Flagged by Analyzer 0 % (0-5); Neutrophil # 7.96 X10^3/uL (2.7-7.7); Neutrophil % 72.1 % (47-70); Platelet Count 400 K/mm3 (150-450); RBC Distribution Width CV 15.2 % (11.6-14.6); RBC Distribution Width SD 46.5 fl (35.1-43.9); Red Blood Count 4.89 M/mm3 (4.6-6.2)
[2023-05-07 06:03] LABS: ALB/GLOB Ratio 0.7 RATIO (0.9-2.4); AST(SGOT) 22 U/L (15-37); Alanine Aminotransfer ALT/SGPT 32 U/L (16-61); Albumin, Serum 3.1 g/dL (3.2-5.0); Alkaline Phosphatase 102 U/L (45-117); Anion Gap 3 (5-15); BUN 17 mg/dL (7-18); BUN/Creat Ratio 15.3 RATIO (10-20); Calcium,Total 8.6 mg/dL (8.5-10.1); Chloride 104 mmol/L (98-107); Cholesterol 170 mg/dL (200); Creatinine, Serum 1.11 mg/dL (0.70-1.30); EST Glomerular Filtration Rate 75 mL/min (>60); Est Glom Filt Rate - Afr Amer 91 mL/min (>60); Estimated Creatinine Clearance 79.59 ml/min; Globulin 4.3 g/dL (2.2-4.2); Glucose 112 mg/dL (74-106); High Density Lipoprotein 40 mg/dL; Potassium 4.2 mmol/L (3.5-5.1); Protein, Total 7.4 g/dL (6.4-8.2); Sodium Level 138 mmol/L (136-145); Triglycerides 67 mg/dL; Troponin-I HS 45 pg/mL (3.0-78.0); Very Low Density Lipoprotein 13 mg/dL (5-40)
[2023-05-07 07:00] VITALS: O2SAT 93
[2023-05-07 08:07] VITALS: BP 114/91; PULSE 96; RESP 15; TEMP 36.1; O2SAT 92
[2023-05-07 08:10] VITALS: PULSE 96
[2023-05-07] MEDS: Furosemide 40 MG/4 ML Vial IV (08:10)
[2023-05-07] MEDS: 0.9% Saline Lock 10 ML Syringe IV (08:10)
[2023-05-07] MEDS: Pantoprazole Sodium 20 MG Tablet PO (08:10)
[2023-05-07] MEDS: Metoprolol Tartrate 50 MG Tablet PO (08:10)
[2023-05-07] MEDS: Enoxaparin 40 MG/0.4 ML Syringe SC (08:11)
[2023-05-07] MEDS: Aspirin E.C. 81 MG Tablet PO (09:47)
[2023-05-07] MEDS: metOLazone 5 MG Tablet PO (09:47)
--- NOTE | 2023-05-07 11:17 | DCINST_ITS ---
Discharge Instructions Diet Discharge Diet: No restrictions Activity Discharge Activity: Return to Normal Activity Weight Bearing Status: Full weight bearing Follow Up Care Test Results: Test results from this visit will be discussed in further detail at your follow- up appointment, if applicable. Discharge Plan Admission Admit Date/Time: 05/06/23 21:46 Primary Reason for Your Visit: Acute congestive heart failure Attending Provider: Felice Alston Primary Care Provider: Care Physician,No Primary Consulting Providers: Ese Payne Instructions Additional Instructions / Restrictions: Make sure you follow up with a doctor as scheduled Discharge Orders/Prescriptions Prescriptions: New pantoprazole 20 mg Tablet,Delayed Release (Dr/Ec) 20 mg PO DAILY Qty: 30 1RF metoprolol tartrate 50 mg Tablet 50 mg PO BID Qty: 60 1RF furosemide [Lasix] 40 mg tablet 40 mg PO DAILY Qty: 30 1RF potassium chloride 10 mEq tablet extended release 20 meq PO DAILY Qty: 60 1RF lisinopril 5 mg tablet 5 mg PO DAILY Qty: 30 1RF Discontinued esomeprazole magnesium [Nexium] 20 mg Capsule,Delayed Release(Dr/Ec) 20 mg PO DAILY metoprolol tartrate 50 mg tablet 50 mg PO DAILY Qty: 30 0RF hydrochlorothiazide 25 mg tablet 25 mg PO QODAY Qty: 30 0RF Referrals / Follow Up: Mai Carranza [Non-Staff] - See Referral Note (As scheduled) Care Physician,No Primary [Primary Care Provider] - (LEFT MESSAGE ) Disposition Disposition (needs filled in before D/C Order can be placed): Home, Self Care
--- NOTE | 2023-05-07 12:31 | PHA.DC.MC.R ---
Pharmacy [facility] has performed discharge medication reconciliation and counseling for this patient. The patient's discharge medication list was reviewed for discrepancies and discrepancies were resolved. The patient was counseled on the following discharge medications and changes in medications for homegoing were reviewed. The Reason for Use, instructions for use, and potential side effects were reviewed for all new medications. The patient's questions regarding all of their medications were answered. 1. Furosemide 40 mg PO daily 2. Potassium chloride 20 mEq PO daily 3. Metoprolol tartrate 50 mg PO BID 4. Pantoprazole 20 mg PO daily The patient was able to verbally demonstrate an understanding of their discharge medications. Medications at Discharge Home Medications furosemide 40 mg tablet (Lasix) 40 mg PO DAILY #30 tabs 05/07/23 metoprolol tartrate 50 mg tablet 50 mg PO BID #60 tabs 05/07/23 pantoprazole 20 mg tablet,delayed release 20 mg PO DAILY #30 tabs 05/07/23 potassium chloride 10 mEq tablet,extended release 20 meq (2 x 10 mEq) PO DAILY #60 tabs 05/07/23
--- NOTE | 2023-05-07 12:55 | CASEMGMT ---
ZENON provided patient with resources for housing, food, Medicaid, [facility], [employer], and prescription assistance programs. Patient said he thought he had Medicaid. ZENON told patient he should follow up with [facility]. ZENON also notified patient that [facility] can utilize our prescription assistance program one time a year. ZENON let patient know his medications will be filled at [facility] at no cost to him. Libby RAMIREZ
[2023-05-07 14:00] VITALS: BP 119/89; PULSE 89; RESP 15; TEMP 36.6; O2SAT 95
--- NOTE | 2023-05-07 15:15 | PCM.DC.SUM ---
Providers Date of Admission: 05/06/23 Date of Discharge: 05/07/23 Primary Care Physician: No Primary Care Phys Reason For Visit: ? CHF EXAC Diagnosis Discharge Diagnosis (1) CHF (congestive heart failure): Status: Acute Code(s): I50.9 - Heart failure, unspecified Plan 1. Acute systolic congestive heart failure #2 nonischemic cardiomyopathy #3 noncompliance with medical regimen #4 mild pulmonary hypertension Medications at Discharge Home Medications furosemide 40 mg tablet (Lasix) 40 mg PO DAILY #30 tabs 05/07/23 lisinopril 5 mg tablet 5 mg PO DAILY #30 tabs 05/07/23 metoprolol tartrate 50 mg tablet 50 mg PO BID #60 tabs 05/07/23 pantoprazole 20 mg tablet,delayed release 20 mg PO DAILY #30 tabs 05/07/23 potassium chloride 10 mEq tablet,extended release 20 meq (2 x 10 mEq) PO DAILY #60 tabs 05/07/23 Hospital Course Operations None Procedures 2-D Echocardiogram Summary of Care Provided Minutes Spent on Discharge: 30 Hospital Course: This 47-year-old white male was seen in the emergency room at [facility] with complaints of shortness of breath and inability to lay flat due to shortness of breath over the past several days. Patient was supposed to be on medications chronically but had moved from [place] and did not have medications according to him. Work-up in the emergency room revealed the patient to be in no respiratory distress, pulse ox was 96 on room air at rest, EKG showed a sinus tachycardia at 126, no acute ischemic changes were noted, CBC showed a normal white blood cell count, chemistry panel was unremarkable. Beta natruretic peptide was elevated at 390, portable chest x-ray was read out by radiology as being normal but the emergency room physician thought it was indicative of fluid overload. Patient was given 40 mg of IV Lasix in the emergency room, the emergency room physician felt that the patient should be placed in observation status for further treatment. Patient was placed in observation status on PCU and was given IV Lasix, he remained on room air and did not require supplemental oxygen throughout his hospital stay. Patient had an echocardiogram performed which showed an EF of 25%. I talked at length with the patient, he stated that last summer in [place] he became ill and had to go to [place] for a heart catheterization, the heart catheterization did not show any blockages in his arteries but it showed a 20% EF, patient then underwent cardiac rehab but did not have his ultrasound repeated. 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 Patient is living out of his car since his return from [place], he has not established himself with a physician. On 05/07/2023, patient was seen and examined: On examination he appeared in good health and spirits. Vital signs as documented. Skin warm and dry and without overt rashes. Neck without JVD, neck was supple, trachea midline, thyroid was normal. Lungs clear bilaterally, normal air movement was noted. Heart exam notable for regular rhythm, normal sounds and absence of murmurs, rubs or gallops. Abdomen unremarkable and without evidence of organomegaly, masses, or abdominal aortic enlargement. Bowel sounds are present, abdomen is not distended. Extremities nonedematous, no cyanosis was noted, no clubbing was noted. Neuro: Cranial nerves II through XII are grossly intact, no focal motor deficits were noted, sensation to light touch and pinprick intact, motor exam 5/5 throughout. Psych: Patient is alert and oriented x3, he does not appear anxious or depressed, he does not appear agitated. On 05/07/2023, patient appears stable for discharge home, I spent some time talking with him about the importance of following up with a physician concerning his heart and I told him that if he did not he risk sudden due to his low EF. Patient's medications were called downstairs to the pharmacy and an appointment was made at the [facility] for him to follow-up with a physician. Weight / BMI Weight Weight: 86.4 kg Body Mass Index (BMI) 28.9 ABG / Lab / Microbiology Data 05/07/23 05:25 05/07/23 05:25 Laboratory: Laboratory Results - last 24 hr 05/06/23 20:40: WBC 10.8, RBC 4.66, Hgb 12.0 L, Hct 39.5 L, MCV 84.8, MCH 25.8 L, MCHC 30.4 L, RDW Std Deviation 46.8 H, RDW Coeff of [place] 15.2 H, Plt Count 385, MPV 9.2, Immature Gran % (Auto) 0.300, Neut % (Auto) 72.9 H, Lymph % (Auto) 17.8 L, [place] % (Auto) 6.3, Eos % (Auto) 2.3, Baso % (Auto) 0.4, Absolute Neuts (auto) 7.9 H, Absolute Lymphs (auto) 1.91, Nucleated RBC % 0, Sodium 139, Potassium 4.1, Chloride 107, Carbon Dioxide 27.0, Anion Gap 5, BUN 14, Creatinine 1.05, Estim Creat Clear Calc 70.31, Est GFR (MDRD) Af Amer 97, Est GFR (MDRD) Non-Af 80, BUN/Creatinine Ratio 13.3, Glucose 131 H, Calcium 8.1 L, Magnesium 2.0, Total Bilirubin 0.60, Direct Bilirubin 0.18, AST 21, ALT 28, Alkaline Phosphatase 103, Troponin I High Sens 41, B-Natriuretic Peptide 390.2 H, Total Protein 7.2, Albumin 3.2, Globulin 4.0 05/06/23 23:41: Troponin I High Sens 46 05/07/23 01:45: Troponin I High Sens 49 05/07/23 05:25: WBC 11.0, RBC 4.89, Hgb 12.5 L, Hct 41.2, MCV 84.3, MCH 25.6 L, MCHC 30.3 L, RDW Std Deviation 46.5 H, RDW Coeff of [place] 15.2 H, Plt Count 400, MPV 8.8, Immature Gran % (Auto) 0.200, Neut % (Auto) 72.1 H, Lymph % (Auto) 19.1, [place] % (Auto) 6.6, Eos % (Auto) 1.5, Baso % (Auto) 0.5, Absolute Neuts (auto) 8.0 H, Absolute Lymphs (auto) 2.10, Nucleated RBC % 0, Sodium 138, Potassium 4.2, Chloride 104, Carbon Dioxide 31.0, Anion Gap 3 L, BUN 17, Creatinine 1.11, Estim Creat Clear Calc 79.59, Est GFR (MDRD) Af Amer 91, Est GFR (MDRD) Non-Af 75, BUN/Creatinine Ratio 15.3, Glucose 112 H, Calcium 8.6, Total Bilirubin 0.80, AST 22, ALT 32, Alkaline Phosphatase 102, Troponin I High Sens 45, Total Protein 7.4, Albumin 3.1 L, Globulin 4.3 H, Albumin/Globulin Ratio 0.7 L, Triglycerides 67, Cholesterol 170, LDL Cholesterol 117, VLDL Cholesterol 13, HDL Cholesterol 40 Microbiology: Microbiology 05/06/23 21:53 Mucosa - Nose Coronavirus COVID-19 PCR - Final Radiography Diagnostic Testing: Radiology Impression Chest X-Ray 05/06/23 20:37 IMPRESSION: Normal x-ray examination of the chest. Electronically Signed: Fidel Scott MD at 21:05 EDT , Echocardiogram 05/06/23 23:02 Interpretation Summary The left atrium is moderately enlarged. Severely dilated left ventricle. The estimated ejection fraction is 25 %. Pulmonary artery systolic pressure is 38 mmHg. Mild-Moderate (1-2+) eccentric mitral valve insufficiency. Ordering Physician: Ese Payne Performed By: Mj Caceres RCS D/C Instructions Discharge Diet: No restrictions Weight Bearing Status: Full weight bearing Meaningful Use Info Meaningful Use Diagnoses (Choose all that apply): CHF CHF CLEMENTINE/ARB ordered at discharge?: Yes Documented LVEF (%): 25 Discharge Plan Admission Admit Date/Time: 05/06/23 21:46 Primary Reason for Your Visit: Acute congestive heart failure Attending Provider: Felice Alston Primary Care Provider: Care Physician,No Primary Consulting Providers: Ese Payne Instructions Additional Instructions / Restrictions: Make sure you follow up with a doctor as scheduled Discharge Orders/Prescriptions Prescriptions: New pantoprazole 20 mg Tablet,Delayed Release (Dr/Ec) 20 mg PO DAILY Qty: 30 1RF metoprolol tartrate 50 mg Tablet 50 mg PO BID Qty: 60 1RF furosemide [Lasix] 40 mg tablet 40 mg PO DAILY Qty: 30 1RF potassium chloride 10 mEq tablet extended release 20 meq PO DAILY Qty: 60 1RF lisinopril 5 mg tablet 5 mg PO DAILY Qty: 30 1RF Discontinued esomeprazole magnesium [Nexium] 20 mg Capsule,Delayed Release(Dr/Ec) 20 mg PO DAILY metoprolol tartrate 50 mg tablet 50 mg PO DAILY Qty: 30 0RF hydrochlorothiazide 25 mg tablet 25 mg PO QODAY Qty: 30 0RF Referrals / Follow Up: Mai Carranza [Non-Staff] - 05/16/23 3:00 pm (As scheduled) Care Physician,No Primary [Primary Care Provider] - (LEFT MESSAGE ) Disposition Disposition (needs filled in before D/C Order can be placed): Home, Self Care Charges/Coding Visit Charges Inpatient E&M: 99357 Disch Hosp
== END 2023-05-07 16:17 | disposition home or self-care (01) ==
LOC: ED 21:42 → PCU 22:32
PROVIDERS: Admitting Provider Family Medicine; Emergency Provider Emergency Medicine; Visit Provider Internal Medicine
DX: I11.0 Hypertensive heart disease with heart failure (principal); I50.21 Acute systolic (congestive) heart failure; I27.20 Pulmonary hypertension, unspecified; I42.8 Other cardiomyopathies; F15.10 Other stimulant abuse, uncomplicated; Z87.891 Personal history of nicotine dependence; K21.9 Gastro-esophageal reflux disease without esophagitis; Z79.899 Other long term (current) drug therapy; Z91.199 Patient's noncompliance with other medical treatment and regimen due to unspecified reason; R73.9 Hyperglycemia, unspecified
CPT/HCPCS: 36415; 71045; 80048; 80053; 80061; 80076; 83735; 83880; 84484; 85025; 87635; 93005; 93306; 96372; 96374; 96376; 99221; 99285; A4216; G0378; J1940

== ENCOUNTER 2023-05-16 01:48 | Inpatient (IN) | payer MEDICAID, SELFPAY ==
[2023-05-16] VITALS (16 sets, daily range): BP systolic 101–143; BP diastolic 67–108; PULSE 104–138; RESP 12–27; TEMP 36.8–37.3; O2SAT 89–98; BMI 29.7; BMI 29.6
--- NOTE | 2023-05-16 02:11 | RAD_ITS ---
STUDY: X-RAY CHEST REASON FOR EXAM: Male, 47 years old patient with chest pain TECHNIQUE: PA and lateral views of the chest. COMPARISON: May 06, 2023. FINDINGS: Cardiac monitoring leads are present. The lungs are expanded. There is mild interstitial thickening present in both lungs. There is no demonstrated pleural abnormality. There is mild cardiac enlargement. Normal mediastinum and rosemarie. There is prominence of the pulmonary hilar arteries without peripheral pulmonary vascular congestion. Normal visualized aortic arch and descending thoracic aorta. There are diffuse degenerative changes of the visualized thoracic spine. Normal visualized ribs, clavicles, and shoulders. There is no demonstrated abnormality of the visualized soft tissue structures of the upper abdomen. RAD/Chest PA and Lateral IMPRESSION: Cardiomegaly and mild pulmonary congestion. Electronically Signed: Daisy Concepcion MD at 3:02 EDT ,
[2023-05-16] MEDS: Aspirin 325 MG Tablet PO (02:22)
[2023-05-16] MEDS: Metoprolol Tartrate 5 MG/5 ML Vial IV ×2 (02:22→03:37)
[2023-05-16] MEDS: Mag Hydrox/Al Hydrox/Simeth 30 ML UDC PO ×2 (02:22→08:01)
[2023-05-16] MEDS: 0.9% Normal Saline (1000mL) 1,000 ML 999 ML IV (02:25)
[2023-05-16 02:31] LABS: Absolute Lymphocyte Count 2.76 X10^3/uL (0.83-4.51); Absolute Neutrophil Count 13.1 X10^3/uL (2.0-7.7); Basophil# 0.07 X10^3/uL; Basophil% 0.4 % (0-1); Eosinophil# 0.14 X10^3/uL; Eosinophils% 0.8 % (0-5); Hematocrit 43.7 % (40-54); Hemoglobin 13.2 g/dL (13.0-16.5); Lymphocyte # 2.76 X10^3/ul (0.83-4.51); Lymphocyte % 15.7 % (19-41); Mean Corp Hgb Conc 30.2 g/dL (32-36); Mean Corpuscular Hgb 25.4 pg (27.0-32.0); Mean Platelet Vol. 9.4 fl (6.2-12.0); Monocyte# 1.46 X10^3/uL; Monocyte% 8.3 % (0-10); NRBC Flagged by Analyzer 0 % (0-5); Neutrophil # 13.07 X10^3/uL (2.7-7.7); Neutrophil % 74.5 % (47-70); Platelet Count 415 K/mm3 (150-450); RBC Distribution Width CV 15.1 % (11.6-14.6); RBC Distribution Width SD 46.2 fl (35.1-43.9); White Blood Count 17.6 K/mm3 (4.4-11.0)
[2023-05-16 02:55] LABS: D-Dimer Quantitative (DVT/PE) 0.55 FEU/ug/m (0.27-0.49)
--- NOTE | 2023-05-16 02:56 | CT_ITS ---
STUDY: CTA CHEST REASON FOR EXAM: Male, 47 years old patient with chest pain with elevated D-Dimer RADIATION DOSAGE (If Supplied By Facility): CTDIvol = ( 15.69 ) mGy, DLP = ( 508.72 ) mGycm TECHNIQUE: The examination was performed with the intravenous administration of 100 mL of Isovue-370. Post-processing of the angiographic images was performed, with multiplanar reformation and 3D reconstruction. Individualized dose optimization techniques were used for this CT. COMPARISON: Prior comparable comparison studies are not available for review at this time. FINDINGS: Normal enhancement of the main pulmonary artery and right and left pulmonary arteries. Normal enhancement of the bilateral peripheral pulmonary arteries. There is no demonstrated pulmonary embolism. There is suggestion for tiny aneurysms arising from the segmental branches of the pulmonary artery branches to the right upper lobe. The largest aneurysm measures up to 1.2 cm in greatest dimension. There are small aneurysms possibly arising from subsegmental pulmonary arterial branches. There may be some small aneurysms arising from subsegmental right lower lobe pulmonary artery branches as well. Normal thoracic aorta and visualized great vessels. There is no demonstrated aortic dissection. There is cardiomegaly. Normal mediastinum. Normal hilar regions. Normal visualized trachea and bronchi. The lungs are well expanded. There are scattered lucencies visible within the right upper lobe, and right middle lobe suggesting central lobular emphysema. Normal pleura. Normal chest wall structures. There are degenerative changes of thoracic spine. Normal visualized upper abdomen. CT/CTA Chest W/WO Contrast IMPRESSION: 1. No CTA demonstrated pulmonary embolism or arterial dissection. 2. Findings suggest the possibility of multiple tiny possibly mycotic aneurysms arising from right-sided segmental and subsegmental pulmonary artery branches. 3. Emphysema is primarily in the right upper lobe and right middle lobe. Electronically Signed: Daisy Concepcion MD at 3:45 EDT ,
[2023-05-16 03:02] LABS: Anion Gap 4 (5-15); BUN 14 mg/dL (7-18); BUN/Creat Ratio 12.4 RATIO (10-20); Calcium,Total 8.5 mg/dL (8.5-10.1); Chloride 107 mmol/L (98-107); Creatinine, Serum 1.13 mg/dL (0.70-1.30); EST Glomerular Filtration Rate 74 mL/min (>60); Est Glom Filt Rate - Afr Amer 89 mL/min (>60); Estimated Creatinine Clearance 78.19 ml/min; Glucose 139 mg/dL (74-106); Magnesium 1.9 mg/dL (1.6-2.6); Potassium 4.1 mmol/L (3.5-5.1); Sodium Level 137 mmol/L (136-145); Troponin-I HS 129 pg/mL (3.0-78.0)
[2023-05-16 03:13] LABS: International Normalized Ratio 1.1
--- NOTE | 2023-05-16 03:30 | EKG12_ITS ---
Test Reason : CP Blood Pressure : / mmHG Vent. Rate : 136 BPM Atrial Rate : 136 BPM P-R Int : 132 ms QRS Dur : 096 ms QT Int : 248 ms P-R-T Axes : 068 035 059 degrees QTc Int : 373 ms Sinus tachycardia Possible Left atrial enlargement ST & T wave abnormality, consider anterolateral ischemia Abnormal ECG When compared with ECG of 06-MAY-2023 20:24, No significant change was found Confirmed by KELLY LAMB, RAJEEV ([id number]), acquisitions editor CLARKE GONZALEZ ([id number]) on 05/17/2023 1:43:20 PM Referred By: FADUMO Confirmed By:RAJEEV MENDOZA MD
[2023-05-16 03:49] LABS: Bacteria 0 SEEN /hpf (None Seen); Mucous, Urine 0 SEEN /hpf (<or=2+); Squamous Epithelial Cells - UA 0 SEEN /hpf (0-5)
[2023-05-16 03:54] LABS: Thyroid Stim Hormone (TSH) 0.74 uIU/mL (0.358-3.74)
[2023-05-16 03:54] LABS: Color, Urine Yellow (Yellow); Glucose, Dipstick Normal (Normal); Ketone-Dipstick Negative (Negative); Leukocyte Esterase-Dipstick 25 /ul (Negative); Nitrite-Dipstick Negative (Negative); Occult Blood-Urine 10 /ul (Negative); Protein-Dipstick 30 mg/dl (Negative); Specific Gravity, Urine 1.015 (1.002-1.030); Urine Bilirubin Dipstick Negative (Negative); Urine Clarity Clear (Clear); Urine Urobilinogen 1 mg/dl (Normal)
[2023-05-16 04:17] LABS: Red Blood Cells-Urine 0-5 SEEN /hpf (0-5); White Blood Cells 0-5 SEEN /hpf (0-5)
--- NOTE | 2023-05-16 04:22 | EX.ED.DYSGE1 ---
HPI History of Present Illness Chief Complaint: Chest Pain Informant: patient Narrative Narrative: Patient is a 47-year-old male with past medical history of congestive heart failure diverticulitis and tobacco abuse. He was seen approximately 1 week ago secondary to shortness of breath and discharged home. He states that over the last 2 or 3 days he has had increased cough and congestion. He states that today he was sleeping and he woke with midsternal chest discomfort. He states he has had this happen in the past and its been secondary to acid reflux. He states however that based on his history of CHF he is concerned that this could also be related to his heart and therefore comes to the ER for evaluation. Patient reports the pain is more sharp and localized in the center of his chest without radiation he denies any nausea vomiting diaphoresis or shortness of breath associated with it [facility] Medical History CHF (congestive heart failure) Diverticulitis Drug use Former tobacco use GERD (gastroesophageal reflux disease) Small bowel obstruction Home Medications furosemide 40 mg tablet (Lasix) 40 mg PO DAILY #30 tabs 05/07/23 [Rx Last Taken Unknown] lisinopril 5 mg tablet 5 mg PO DAILY #30 tabs 05/07/23 [Rx Last Taken Unknown] metoprolol tartrate 50 mg tablet 50 mg PO BID #60 tabs 05/07/23 [Rx Last Taken Unknown] pantoprazole 20 mg tablet,delayed release 20 mg PO DAILY #30 tabs 05/07/23 [Rx Last Taken Unknown] potassium chloride 10 mEq tablet,extended release 20 meq (2 x 10 mEq) PO DAILY #60 tabs 05/07/23 [Rx Last Taken Unknown] Allergy/AdvReac Type Severity Reaction Status Date / Time No Known Allergies Allergy Verified 05/16/23 01:51 Surgical History Hx of exploratory laparotomy Social History (Updated 05/06/23 @ 22:[address] Ese Payne MD) household members: friend(s) Smoking Status: Former smoker how long ago did patient quit smoking: Smoked ~ 1 ppd since teen until 10/28/21. alcohol intake: current alcohol intake frequency: a few times a month substance use type: methamphetamine ROS ROS ED Constitutional Constitutional ED: Denies chills or fever(s) ENT ENT ED: Reports rhinorrhea; Denies sore throat Cardiovascular Cardiovascular: Reports chest pain; Denies palpitations or racing heartbeat Respiratory/Chest Respiratory/Chest: Reports cough; Denies dyspnea Gastrointestinal Gastrointestinal: Denies abdominal pain, diarrhea, nausea or vomiting Genitourinary Genitourinary ED: Denies dysuria Musculoskeletal Musculoskeletal: Denies back pain or myalgias Integumentary Denies rash Neurologic Neurologic: Denies headache(s) Hematologic/Lymphatic Hematologic/Lymphatic: Denies easy bleeding or easy bruising EXAM Physical Exam Const Vital Signs: 05/16/23 01:49 05/16/23 03:39 05/16/23 04:43 Temperature 98.8 F Temperature Source Oral Pulse Rate 136 H 121 H 111 H Respiratory Rate 19 H 24 H 16 Blood Pressure 143/108 H 107/89 H 132/88 H Blood Pressure Mean 119 95 102 Pulse Ox 98 94 94 Oxygen Delivery Method Room Air Room Air 05/16/23 06:00 Temperature Temperature Source Pulse Rate 104 H Respiratory Rate 18 Blood Pressure 115/81 H Blood Pressure Mean 92 Pulse Ox 95 Oxygen Delivery Method Room Air Positive well nourished and well developed General Appearance ED: well developed; Negative for pallor HEENT HEENT Narrative: No tongue or lip swelling noted. No oral lesions no airway edema or compromise. Mild cobblestoning the posterior pharynx consistent with sinus drainage but no secondary changes to suggest infection. Eyes PERRL and EOMs intact bilaterally General Eye ED: Negative for pale conjunctiva or scleral icterus Neck supple and no JVD Neck Narrative: No nuchal rigidity or meningeal signs Chest Wall palpation of chest normal Chest Narrative: No bony deformity or crepitance Resp Resp Narrative: Patient has mild tachypnea with diminished breath sounds throughout with diffuse rhonchi and faint expiratory wheeze in the bilateral lower lobes Cardio regular rhythm Rate: tachycardic and other Other Details: Tachycardic rate with regular rhythm Radial and carotid pulses are equal and symmetric No murmurs rubs or gallops noted GI normal to inspection, nondistended, normoactive bowel sounds, non-tender, non-distended and no masses GI Narrative: No voluntary guarding or rigidity. No pulsatile mass or fluid wave. No increased tympany noted Auscultation: normoactive bowel sounds Palpation: soft Extremity normal to inspection Extremity Narrative: No asymmetric edema no pitting edema negative Homans' sign bilaterally Neuro oriented x3, CN's II-XII intact bilaterally and no sensory deficits noted Sensorium / Orientation: alert Motor Exam: strength 5/5 throughout Psych mental status grossly normal Skin no rashes or lesions noted General Skin Exam: Negative for jaundice or pallor MDM MDM MDM Narrative Medical decision making narrative: Patient presented to the ER hypertensive and tachycardic. He reported midsternal chest pain that awoke him from sleep and differential diagnosis is for acute coronary syndrome versus pulmonary embolus versus pneumonia versus pneumothorax versus gastritis. Secondary to his tachycardia he was started on IV fluids. With report of chest pain a troponin was drawn as well as a D-dimer based on his tachycardia. The patient's initial troponin was elevated at 129 which is up from approximately 45 at his admission roughly 1 week ago. The patient's D-dimer was also elevated and therefore with concern for a pulmonary embolus as the cause of his tachycardia and chest discomfort a CTA was obtained. 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 The patient did admit to a few days of feeling sick with cough congestion and fatigue. His white count had change from normal at 11 to approximately 18. Talk screen is positive for methamphetamines and ecstasy and marijuana. The patient states that he will smoke or ingest the drugs and he denies any IV use. However with concern for systemic bacteria causing the mycotic aneurysms he was started on vancomycin and Zosyn after blood cultures were obtained. I discussed the case with the topographical engineer on-call Dr. Morales who feels that based on the patient's mycotic aneurysms that he would require a higher level of care. Secondary to this [facility] was contacted. After discussing the case with the physician on-call at [facility] they agreed to accept the patient to the hospital for further care History & Record Review Discussion w/independent historian: Patient Lab Data Attestation: I reviewed the patient's lab results. Labs: Laboratory Results - last 24 hr 05/16/23 05/16/23 05/16/23 01:59 03:41 04:05 WBC 17.6 H RBC 5.20 Hgb 13.2 Hct 43.7 MCV 84.0 MCH 25.4 L MCHC 30.2 L RDW Std Deviation 46.2 H RDW Coeff of King 15.1 H Plt Count 415 MPV 9.4 Immature Gran % (Auto) 0.300 Neut % (Auto) 74.5 H Lymph % (Auto) 15.7 L [place] % (Auto) 8.3 Eos % (Auto) 0.8 Baso % (Auto) 0.4 Absolute Neuts (auto) 13.1 H Absolute Lymphs (auto) 2.76 Nucleated RBC % 0 PT 14.0 INR 1.1 APTT 30.0 D-Dimer Quant (PE/DVT) 0.55 H* Sodium 137 Potassium 4.1 Chloride 107 Carbon Dioxide 26.0 Anion Gap 4 L BUN 14 Creatinine 1.13 Estim Creat Clear Calc 78.19 Est GFR (MDRD) Af Amer 89 Est GFR (MDRD) Non-Af 74 BUN/Creatinine Ratio 12.4 Glucose 139 H Lactic Acid 1.0 Calcium 8.5 Magnesium 1.9 Troponin I High Sens 129 H* 127 H* Procalcitonin 0.14 H TSH 0.74 Urine Color Yellow Urine Clarity Clear Urine pH 5.0 Ur Specific [place] 1.015 Urine Protein 30 H Urine Glucose (UA) Normal Urine Ketones Negative Urine Occult Blood 10 H Urine Nitrite Negative Urine Bilirubin Negative Urine Urobilinogen 1 H Ur Leukocyte Esterase 25 H Urine RBC 0-5 SEEN Urine WBC 0-5 SEEN Ur Squamous Epith Cells 0 SEEN Urine Bacteria 0 SEEN Urine Mucus 0 SEEN Urine Opiates Screen NEGATIVE Urine Methadone Screen NEGATIVE Ur Barbiturates Screen NEGATIVE Ur Phencyclidine Scrn NEGATIVE Ur Amphetamines Screen POSITIVE H MDMA (Ecstasy) Screen POSITIVE H U Benzodiazepines Scrn NEGATIVE Urine Cocaine Screen NEGATIVE U Cannabinoids Screen POSITIVE H Ur Drug Screen Comment Radiography Diagnostic Testing: Clinical Impression(s) from Imaging Studies Chest X-Ray 05/16/23 02:11 IMPRESSION: Cardiomegaly and mild pulmonary congestion. Electronically Signed: Daisy Concepcion MD at 3:02 EDT Reading Location ID and State: [facility] / [place] , Service support , Chest CTA 05/16/23 02:56 IMPRESSION: 1. No CTA demonstrated pulmonary embolism or arterial dissection. 2. Findings suggest the possibility of multiple tiny possibly mycotic aneurysms arising from right-sided segmental and subsegmental pulmonary artery branches. 3. Emphysema is primarily in the right upper lobe and right middle lobe. Electronically Signed: Daisy Concepcion MD at 3:45 EDT , 2 view chest x-ray as interpreted by the emergency medicine physician reveals cardiomegaly with mild pulmonary congestion but no acute infiltrate pneumothorax or widening of the mediastinum. Critical Care Time Critical Care Time: Yes Critical care time (excluding procedures): Discussing w/Patient &/or Family/Selling Underwriter, Discussing w/Consultants, Arranging Admission or Transfer and - (Please note critical care time of 33 minutes) Discharge Plan Triage Chief Complaint: Chest Pain ED Provider: Alexis Smith Dx/Rx/DC Orders Clinical Impression: Mycotic aneurysm, Elevated troponin, Methamphetamine abuse, History of congestive heart failure Prescriptions: No Action pantoprazole 20 mg Tablet,Delayed Release (Dr/Ec) 20 mg PO DAILY Qty: 30 1RF metoprolol tartrate 50 mg Tablet 50 mg PO BID Qty: 60 1RF furosemide [Lasix] 40 mg tablet 40 mg PO DAILY Qty: 30 1RF potassium chloride 10 mEq tablet extended release 20 meq PO DAILY Qty: 60 1RF lisinopril 5 mg tablet 5 mg PO DAILY Qty: 30 1RF Primary Care Provider: Care Physician,No Primary Referrals: Care Physician,No Primary [Primary Care Provider] - Disposition Disposition: Acute Care Hospital Discharge Location: [facility]
[2023-05-16 04:58] LABS: Amphetamine Urine VISTA POSITIVE (<1000 ng/mL); Barbiturate Urine VISTA NEGATIVE (< 200 ng/mL); Benzodiazepine Urine VISTA NEGATIVE (< 200 ng/mL); Cocaine Urine VISTA NEGATIVE (< 300 ng/mL); Ecstacy Urine VISTA POSITIVE (< 500 ng/mL); Methadone Urine VISTA NEGATIVE (< 300 ng/mL); PCP Urine VISTA NEGATIVE (< 25 ng/mL); THC Urine VISTA POSITIVE (< 50 ng/mL); Vista UDS pH Range 5
[2023-05-16 04:59] LABS: Procalcitonin 0.14 ng/mL (0.00-0.09)
[2023-05-16 05:01] LABS: Troponin-I HS 127 pg/mL (3.0-78.0)
[2023-05-16] MEDS: Piperacil/Tazobactam 3.375 GM in 0.9% Normal Saline (50mL MB+) 50 ML IV ×2 (05:59→22:39)
[2023-05-16] MEDS: Vancomycin HCl 1,250 MG in 0.9% Normal Saline (250mL Bag) 250 ML 167 MG IV (06:43)
--- NOTE | 2023-05-16 06:51 | NURSING ---
ACCEPTED AT [facility] BY DR JOSE DURÁN, [facility]. GOING TO MED TELE BED
[2023-05-16] MEDS: Famotidine 200 MG/20 ML MDV 20 MG in 0.9% Normal Saline (Pres. free 8 ML 300 MG IV (08:28)
[2023-05-16] MEDS: Ketorolac 15 MG/ML Vial IV (09:23)
--- NOTE | 2023-05-16 09:59 | NURSING ---
CALLED [facility] ABOUT BED. NOTHING YET
[2023-05-16] MEDS: Morphine 4 MG/ML Syringe IV ×2 (12:29→15:47)
--- NOTE | 2023-05-16 13:46 | NURSING ---
CALLED [facility] FOR BED STATUS. NONE YET. SHE TOOK RECENT VITALS
--- NOTE | 2023-05-16 15:40 | NURSING ---
CALLED [facility]. WAS ADVISED THEY HAVE PEOPLE WAITING FOR BEDS.
--- NOTE | 2023-05-16 17:22 | NURSING ---
PCU WHITE MYCOTIC [facility]EUR[facility]
--- NOTE | 2023-05-16 17:34 | PCM.HP.STD ---
HPI - General General Date of Admission: 05/16/23 Date of Service: 05/16/23 Chief Complaint: Chest discomfort, congestion, cough. HPI Narrative The patient is a 47 y/o M w/ PMHx: HFrEF/Nonischemic cardiomyopathy, HTN, Former tobacco use, Substance abuse (methamphetamine use primarily, snorts), GERD, Hx SBO, recently discharged 05/07/23 following treatment for acute CHF exacerbation with unfortunately notable medication noncompliance with 05/06/23 echocardiogram with moderately enlarged LA, severely dilated LV, EF 25%, PASP 38 mmHg with mild to moderate MVI who now represents to the [facility] initially on 05/16/23 early AM with increased congestion, cough for the last 2 to 3 days awakening just prior to ED presentation with midsternal chest discomfort which has been happening previously and he is usually secondary to his reflux and similar to the previous dyspepsia but given his recent presentation was concerning and prompted ED evaluation. In the ED patient notes feeling very poorly and although he initially did not have any GI symptoms complains of nausea which has been persistent as well as generalized discomfort. Work-up in the ED included T98.8, heart rate initially 136 with most recent repeat 132, BP 1 3/108, respiratory rate 19, 98% on room air with most recent repeat vital signs BP 133/88, CBC with WBC 17.6, he 113.2, platelet 415 with left shift, coags with D-dimer 0.55 otherwise unremarkable, BMP with glucose 139 otherwise not marked appearing, lactic acid 1.0, troponin 129 with repeat delta 127, urinalysis with no obvious evidence of UTI, urine drug screen with positive amphetamine, MDMA, cannabis, chest x-ray with cardiomegaly and mild pulmonary congestion, chest CTA with no demonstrated PE or dissection however there are findings suggestive of possible multiple tiny mycotic aneurysms arising from the right sided segment and subsegmental pulmonary artery branches, emphysema primarily in the right upper lobe and right middle lobe, blood culture x2 pending per ED, EKG with sinus tachycardia with nonspecific changes with no acute evidence of ischemia. In the ED patient ministered 1 L normal saline bolus, full-strength aspirin therapy, IV vancomycin and IV Zosyn as well as metoprolol 5 mg IV x2, morphine 4 mg IV x2 doses, Mylanta x2 doses, viscous lidocaine 50 mg p.o. x1 as well as Toradol 50 mg IV x1 and eventually placed on famotidine IV regimen. [facility] Medical History CHF (congestive heart failure) Diverticulitis Drug use Former tobacco use GERD (gastroesophageal reflux disease) Small bowel obstruction Home Medications furosemide 40 mg tablet (Lasix) 40 mg PO DAILY #30 tabs 05/07/23 [Rx Last Taken Unknown] lisinopril 5 mg tablet 5 mg PO DAILY #30 tabs 05/07/23 [Rx Last Taken Unknown] metoprolol tartrate 50 mg tablet 50 mg PO BID #60 tabs 05/07/23 [Rx Last Taken Unknown] pantoprazole 20 mg tablet,delayed release 20 mg PO DAILY #30 tabs 05/07/23 [Rx Last Taken Unknown] potassium chloride 10 mEq tablet,extended release 20 meq (2 x 10 mEq) PO DAILY #60 tabs 05/07/23 [Rx Last Taken Unknown] Allergy/AdvReac Type Severity Reaction Status Date / Time No Known Allergies Allergy Verified 05/16/23 01:51 other (Denies any marked maternal or paternal family history including HD, DM, CA.) Surgical History Hx of exploratory laparotomy Social History household members: friend(s) Smoking Status: Former smoker how long ago did patient quit smoking: Smoked ~ 1 ppd since teen until 10/28/21. alcohol intake: current alcohol intake frequency: a few times a month substance use type: methamphetamine ROS ROS Narrative Admission Review of Systems: CONSTITUTIONAL: No weight loss, fever, chills, + weakness or fatigue. HEENT: + Congestion. Eyes: No visual loss, blurred vision, double vision or yellow sclerae. Ears, Nose, Throat: No hearing loss, sneezing, runny nose or sore throat. SKIN: No rash or itching, lesions, wounds. CARDIOVASCULAR: + chest pain, chest pressure or chest discomfort. No palpitations, edema, orthopnea, syncopal events. RESPIRATORY: + Shortness of breath, cough, No sputum, wheezing, hemoptysis. GASTROINTESTINAL: + anorexia, nausea, dyspepsia, No vomiting or diarrhea, abdominal pain, melena, BRBPR. GENITOURINARY: No dysuria, frequency, urgency or retention. NEUROLOGICAL: No headache, dizziness, syncope, paralysis, ataxia, numbness or tingling in the extremities, focal weakness, change in bowel or bladder control, seizure. MUSCULOSKELETAL: + muscle, back pain, joint pain or stiffness. HEMATOLOGIC: No anemia, bleeding or bruising. LYMPHATICS: No enlarged nodes. No history of splenectomy. PSYCHIATRIC: No history of depression or anxiety. ENDOCRINOLOGIC: No reports of sweating, cold or heat intolerance. No polyuria or polydipsia. ALLERGIES: No history of asthma, hives, eczema or rhinitis. Vital Signs Vital Signs Vital Signs: 05/16/23 01:49 05/16/23 03:39 05/16/23 04:43 Temperature 98.8 F Temperature Source Oral Pulse Rate 136 H 121 H 111 H Respiratory Rate 19 H 24 H 16 Blood Pressure 143/108 H 107/89 H 132/88 H Blood Pressure Mean 119 95 102 Pulse Ox 98 94 94 Oxygen Delivery Method Room Air Room Air 05/16/23 06:00 05/16/23 07:47 05/16/23 08:59 Temperature Temperature Source Pulse Rate 104 H 110 H 116 H Respiratory Rate 18 24 H 27 H Blood Pressure 115/81 H 108/81 H 123/95 H Blood Pressure Mean 92 90 104 Pulse Ox 95 96 97 Oxygen Delivery Method Room Air Room Air Room Air 05/16/23 10:00 05/16/23 12:00 05/16/23 14:00 Temperature Temperature Source Pulse Rate 115 H 125 H 129 H Respiratory Rate 18 16 12 Blood Pressure 101/67 134/98 H Blood Pressure Mean 78 110 Pulse Ox 95 98 96 Oxygen Delivery Method Room Air Room Air Room Air 05/16/23 17:22 Temperature Temperature Source Pulse Rate 138 H Respiratory Rate 13 Blood Pressure 135/99 H Blood Pressure Mean 111 Pulse Ox 92 Oxygen Delivery Method Room Air Weight Weight: 195 lb 15.855 oz Body Mass Index (BMI) 29.7 Physical Exam Narrative Physical Examination: General: Awake, alert, oriented x 3 and cooperative, seated upright in the ED bed, fatigued and ill-appearing. Skin: Normal color, normal turgor, no icterus, no cyanosis except occasional abrasion, staged ecchymoses. HEENT: AT/NC, EOMI, PERRLA, dry MM, no carotid bruits or JVD noted. Lungs: Diffusely diminished, greater bases, mildly decreased effort, no rales, ronchi or wheezing. Heart: Tachycardic with regular rhythm; no gallop, rub audible. Abdomen: Soft, obese, NTTP, ND, hyperactive BS, no HSM. Extremities: No cyanosis, no clubbing, mild peripheral edema. Neurological: Patient awake, alert, oriented as noted, cognitive function intact; pupils equally reactive to light and accommodation, cranial nerves II-XII grossly normal, moving all 4 extremities, no focal deficits, strength moderately globally decreased secondary to acute presentation complaints. Psychiatric: Affect appears fatigued, ill-appearing, no acute evidence of depressive or anxiety feelings. Results Lab / Micro Data 05/16/23 01:59 05/16/23 01:59 Labs: Laboratory Results - last 24 hr 05/16/23 01:59: WBC 17.6 H, RBC 5.20, Hgb 13.2, Hct 43.7, MCV 84.0, MCH 25.4 L, MCHC 30.2 L, RDW Std Deviation 46.2 H, RDW Coeff of King 15.1 H, Plt Count 415, MPV 9.4, Immature Gran % (Auto) 0.300, Neut % (Auto) 74.5 H, Lymph % (Auto) 15.7 L, [place] % (Auto) 8.3, Eos % (Auto) 0.8, Baso % (Auto) 0.4, Absolute Neuts (auto) 13.1 H, Absolute Lymphs (auto) 2.76, Nucleated RBC % 0, PT 14.0, INR 1.1, APTT 30.0, D-Dimer Quant (PE/DVT) 0.55 H*, Sodium 137, Potassium 4.1, Chloride 107, Carbon Dioxide 26.0, Anion Gap 4 L, BUN 14, Creatinine 1.13, Estim Creat Clear Calc 78.19, Est GFR (MDRD) Af Amer 89, Est GFR (MDRD) Non-Af 74, BUN/Creatinine Ratio 12.4, Glucose 139 H, Calcium 8.5, Magnesium 1.9, Troponin I High Sens 129 H*, TSH 0.74 05/16/23 03:41: Urine Color Yellow, Urine Clarity Clear, Urine pH 5.0, Ur Specific [place] 1.015, Urine Protein 30 H, Urine Glucose (UA) Normal, Urine Ketones Negative, Urine Occult Blood 10 H, Urine Nitrite Negative, Urine Bilirubin Negative, Urine Urobilinogen 1 H, Ur Leukocyte Esterase 25 H, Urine RBC 0-5 SEEN, Urine WBC 0-5 SEEN, Ur Squamous Epith Cells 0 SEEN, Urine Bacteria 0 SEEN, Urine Mucus 0 SEEN, Urine Opiates Screen NEGATIVE, Urine Methadone Screen NEGATIVE, Ur Barbiturates Screen NEGATIVE, Ur Phencyclidine Scrn NEGATIVE, Ur Amphetamines Screen POSITIVE H, MDMA (Ecstasy) Screen POSITIVE H, U Benzodiazepines Scrn NEGATIVE, Urine Cocaine Screen NEGATIVE, U Cannabinoids Screen POSITIVE H, Ur Drug Screen Comment 05/16/23 04:05: Lactic Acid 1.0, Troponin I High Sens 127 H*, Procalcitonin 0.14 H Radiology Impression Chest X-Ray 05/16/23 02:11 IMPRESSION: Cardiomegaly and mild pulmonary congestion. Electronically Signed: Daisy Concepcion MD at 3:02 EDT Reading Location ID and State: [address] [place] [address] , Service support , Chest CTA 05/16/23 02:56 IMPRESSION: 1. No CTA demonstrated pulmonary embolism or arterial dissection. 2. Findings suggest the possibility of multiple tiny possibly mycotic aneurysms arising from right-sided segmental and subsegmental pulmonary artery branches. 3. Emphysema is primarily in the right upper lobe and right middle lobe. Electronically Signed: Daisy Concepcion MD at 3:45 EDT Reading Location ID and State: [facility] / [place] , Service support , Assessment & Plan Assessment/Plan (1) Elevated troponin: PLAN: Plan The patient is a 47 y/o M w/ PMHx: HFrEF/Nonischemic cardiomyopathy, HTN, Former tobacco use, Substance abuse (methamphetamine use primarily, snorts), GERD, Hx SBO, recently discharged 05/07/23 following treatment for acute CHF exacerbation with unfortunately notable medication noncompliance with 05/06/23 echocardiogram with moderately enlarged LA, severely dilated LV, EF 25%, PASP 38 mmHg with mild to moderate MVI who now represents to the [facility] initially on 05/16/23 early AM with increased congestion, cough for the last 2 to 3 days awakening just prior to ED presentation with midsternal chest discomfort which has been happening previously and he is usually secondary to his reflux and similar to the previous dyspepsia but given his recent presentation was concerning and prompted ED evaluation. #1. 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 Bld cx x 2 obtained in the ED. uncertain if his recent mild dyspnea and congestion complaints are related with this presentation but as noted full respiratory panel and COVID PCR are also pending. #2. Elevated cardiac enzymes of uncertain significance in the setting of #1: EKG in ED w/ sinus tachycardia with nonspecific changes with no acute evidence of ischemia, CXR w/ with cardiomegaly and mild pulmonary congestion with follow-up CTA chest with no demonstrated PE or dissection with multiple tiny mycotic aneurysms arising from the right segment and subsegmental pulmonary artery branches with emphysematous right-sided changes with no obvious overload or congestion or acute pulmonary finding otherwise. Trop elevated, initial 129 with repeat delta 127. Will maintain on a monitored bed, continue serial cardiac enzymes and EKGs. Obtain magnesium level upon admission. Will initiate therapeutic Lovenox until assure enzyme continues to trend downward. Continue medical management. AM FLP. Recent echo was obtained as noted 05/06/2023 with no obvious evidence of concerning endocarditis at that time but given presentation #1 and elevated troponins we will plan to repeat. Pending findings and further evaluation if does remain at [place] for prolonged period and unfortunately does not get a bed in a timely fashion at [facility] would request cardiology involvement. #3. HFrEF/Nonischemic cardiomyopathy: Recent admission, echocardiogram as noted with plan repeat given presentation, will continue aspirin, metoprolol, lisinopril as well as oral Lasix however given appearance and no obvious overload on CT given significant tachycardia and an infectious presentation low threshold to judiciously hydrate as needed, magnesium pending. #4. Hypertension: Continue home regimen including Lasix, lisinopril, metoprolol with hold parameters as needed, PRN hydralazine. #5. Polysubstance abuse: Does admit to methamphetamine, UDS with positive amphetamine, MDMA as well as cannabis, to be cautious as patient is not the best historian we will obtain HIV, hepatitis as well as syphilis panel especially given presentation with findings concerning for possible bacteremia/endocarditis. #6. Former tobacco use: Encourage continued tobacco cessation. #7. DVT prophylaxis: We will continue therapeutic Lovenox until enzymes assured to nathan, may de-escalate following. Charges/Coding Visit Charges Inpatient E&M: 43515 Init Hosp L3
--- NOTE | 2023-05-16 18:33 | ECHOL_ITS ---
Reason For Study: Endocarditis Procedure This was a limited 2D transthoracic echocardiogram. Exam performed portable in patient room. Left Ventricle Severely dilated left ventricle. The estimated ejection fraction is 15-20 %. There is evidence of diastolic dysfunction. There is severe global hypokinesis of the left ventricle. Right Ventricle Normal RV size. Normal systolic function. Atria The left atrium is moderately enlarged. Normal right atrium. No doppler evidence for ASD. Mitral Valve There is no vegetation seen on the mitral valve. There is no mitral valve stenosis. Mild-Moderate (1-2+) mitral valve insufficiency. Tricuspid Valve No vegetations identified. There is no tricuspid stenosis. Moderate (2+) tricuspid valve insufficiency. Pulmonary artery systolic pressure is 40 mmHg. Aortic Valve Trisinus/trileaflet aortic valve. There is no aortic valvular vegetation. There is no aortic stenosis. No aortic valve insufficiency. Pulmonic Valve no vegetations. There is no pulmonic valvular stenosis. Trivial pulmonic valve insufficiency. Great Vessels Normal aortic root. Pericardium/Pleural No pericardial effusion. MMode/2D Measurements & Calculations LVIDd: 6.8 cm IVSd: 1.1 cm LA dimension: 5.0 cm LVIDs: 5.9 cm LVPWd: 0.84 cm FS: 12.9 % LVAd ap4: 47.8 cm2 SV(MOD-sp4): 47.2 ml SV(sp4-el): 49.2 ml LVLd ap4: 8.7 cm EDV(MOD-sp4): 215.7 ml EDV(sp4-el): 223.8 ml LVAs ap4: 41.8 cm2 LVLs ap4: 8.5 cm ESV(MOD-sp4): 168.5 ml ESV(sp4-el): 174.6 ml EF(MOD-sp4): 21.9 % EF(sp4-el): 22.0 % Doppler Measurements & Calculations MR max fadumo: 406.1 cm/sec TR max fadumo: 297.2 cm/sec MR max P.0 mmHg TR max P.3 mmHg MR mean fadumo: 297.5 cm/sec MR mean P.4 mmHg MR VTI: 111.6 cm ECHO/Echo, Limited Study Interpretation Summary Severely dilated left ventricle. The estimated ejection fraction is 15-20 %. There is evidence of diastolic dysfunction. There is severe global hypokinesis of the left ventricle. The left atrium is moderately enlarged. Mild-Moderate (1-2+) mitral valve insufficiency. Ordering Physician: Ese Payne Performed By: Mj Caceres RCS
[2023-05-16 19:33] LABS: HIV - WCH Non-Reactive (Nonreactive); Syphilis Antibodies Non-reactive
--- NOTE | 2023-05-16 19:52 | PCM.RX.CS ---
Consult Antibiotic Management Pharmacy has been consulted to manage selected antiobiotic: Vancomycin Type of Intervention Type of Consult: New start Suspected Infection Suspected Infection: Skin/Soft tissue Prior Doses of Antibiotics Prior Doses of Antibiotics Received/Current Regimen: 05/16/23 @ 0643 Labs Labs: Sodium 137 mmol/L (136-145) 05/16/23 01:59 Potassium 4.1 mmol/L (3.5-5.1) 05/16/23 01:59 Chloride 107 mmol/L (98-107) 05/16/23 01:59 Carbon Dioxide 26.0 mmol/L (21.0-32.0) 05/16/23 01:59 Anion Gap 4 (5-15) L 05/16/23 01:59 BUN 14 mg/dL (7-18) 05/16/23 01:59 Creatinine 1.13 mg/dL (0.70-1.30) 05/16/23 01:59 Est GFR (MDRD) Af Amer 89 mL/min (>60) 05/16/23 01:59 Est GFR (MDRD) Non-Af 74 mL/min (>60) 05/16/23 01:59 BUN/Creatinine Ratio 12.4 RATIO (10-20) 05/16/23 01:59 Glucose 139 mg/dL (74-106) H 05/16/23 01:59 Dosing Weight Weight used for dosin kg Estimated Creatinine Clearance Estimated Creatinine Clearance: 101 Goal Trough Goal Trough: 15-20 mcg/mL Pharmacy Plan for Drug Dosing Pharmacy Plan for Drug Dosing: Give Vancomycin 1000mg every 8 hours and draw a trough 30 minutes before 4 th dose Pharmacy Service will continue to monitor and adjust dosing as required. Follow-Up Labs Follow-Up Labs: Trough: Vancomycin Date/Time Labs Ordered Labs to be done on [date and time ordered]: 05/17/23 @ 1930
[2023-05-16 19:55] LABS: Troponin-I HS 140 pg/mL (3.0-78.0)
[2023-05-16] MEDS: 0.9% Normal Saline (1000mL) 1,000 ML 75 ML IV (20:21)
[2023-05-16] MEDS: 0.9% Saline Lock 10 ML Syringe IV (20:22)
[2023-05-16 20:24] LABS: Hepatitis B Surface Antibody Non-Reactive; Hepatitis B Surface Antigen Non-Reactive (Nonreactive); Hepatitis C Antibody Non-Reactive (Nonreactive)
[2023-05-16] MEDS: oxyCODONE 5 MG Tablet PO (20:39)
[2023-05-16] MEDS: Vancomycin IV 1,000 MG/200 ML BAG 200 MG IV (20:53)
[2023-05-16] MEDS: Enoxaparin 100 MG/ML Syringe 90 MG SC (20:56)
[2023-05-16] MEDS: Metoprolol Tartrate 50 MG Tablet PO (21:04)
[2023-05-16 21:31] LABS: Troponin-I HS 132 pg/mL (3.0-78.0)
[2023-05-16] MEDS: Budesonide Respules 0.5 MG/2 ML AMPUL.NEB. INHALATION (22:31)
[2023-05-17] VITALS (8 sets, daily range): BP systolic 113–128; BP diastolic 66–90; PULSE 104–123; RESP 16–19; TEMP 36.4–37.3; O2SAT 95–100; BMI 29.6; BMI 30.3
[2023-05-17 00:31] LABS: M R Staph aureus DNA By PCR POSITIVE (Negative); Probe Check PASS
[2023-05-17] MEDS: oxyCODONE 5 MG Tablet PO ×3 (01:04→20:58)
[2023-05-17 01:39] LABS: Troponin-I HS 122 pg/mL (3.0-78.0)
[2023-05-17] MEDS: Vancomycin IV 1,000 MG/200 ML BAG 200 MG IV ×2 (03:53→11:25)
[2023-05-17] MEDS: Piperacil/Tazobactam 3.375 GM in 0.9% Normal Saline (50mL MB+) 50 ML IV ×2 (05:54→14:03)
[2023-05-17 06:14] LABS: Absolute Lymphocyte Count 2.75 X10^3/uL (0.83-4.51); Absolute Neutrophil Count 10.7 X10^3/uL (2.0-7.7); Basophil# 0.06 X10^3/uL; Basophil% 0.4 % (0-1); Eosinophil# 0.04 X10^3/uL; Eosinophils% 0.3 % (0-5); Hematocrit 38.4 % (40-54); Hemoglobin 11.8 g/dL (13.0-16.5); Lymphocyte # 2.75 X10^3/ul (0.83-4.51); Lymphocyte % 18.3 % (19-41); Mean Corp Hgb Conc 30.7 g/dL (32-36); Mean Corpuscular Hgb 25.4 pg (27.0-32.0); Mean Corpuscular Volume 82.8 fL (80-94); Mean Platelet Vol. 9.6 fl (6.2-12.0); Monocyte# 1.39 X10^3/uL; Monocyte% 9.3 % (0-10); NRBC Flagged by Analyzer 0 % (0-5); Neutrophil # 10.73 X10^3/uL (2.7-7.7); Neutrophil % 71.4 % (47-70); Platelet Count 369 K/mm3 (150-450); RBC Distribution Width SD 45.4 fl (35.1-43.9); Red Blood Count 4.64 M/mm3 (4.6-6.2)
[2023-05-17 06:54] LABS: ALB/GLOB Ratio 0.6 RATIO (0.9-2.4); AST(SGOT) 36 U/L (15-37); Alanine Aminotransfer ALT/SGPT 45 U/L (16-61); Albumin, Serum 2.7 g/dL (3.2-5.0); Alkaline Phosphatase 100 U/L (45-117); Anion Gap 5 (5-15); BUN 18 mg/dL (7-18); BUN/Creat Ratio 17.6 RATIO (10-20); Calcium,Total 8.3 mg/dL (8.5-10.1); Chloride 103 mmol/L (98-107); Cholesterol 98 mg/dL (200); Creatinine, Serum 1.02 mg/dL (0.70-1.30); EST Glomerular Filtration Rate 83 mL/min (>60); Est Glom Filt Rate - Afr Amer 101 mL/min (>60); Estimated Creatinine Clearance 86.62 ml/min; Globulin 4.6 g/dL (2.2-4.2); Glucose 126 mg/dL (74-106); High Density Lipoprotein 39 mg/dL; Potassium 4.5 mmol/L (3.5-5.1); Protein, Total 7.3 g/dL (6.4-8.2); Sodium Level 133 mmol/L (136-145); Triglycerides 50 mg/dL; Very Low Density Lipoprotein 10 mg/dL (5-40)
[2023-05-17] MEDS: Budesonide Respules 0.5 MG/2 ML AMPUL.NEB. INHALATION ×2 (06:57→18:56)
[2023-05-17] MEDS: Aspirin 81 MG TAB.CHEW PO (09:00)
[2023-05-17] MEDS: 0.9% Normal Saline (1000mL) 1,000 ML 75 ML IV (09:41)
[2023-05-17] MEDS: 0.9% Saline Lock 10 ML Syringe IV (09:55)
[2023-05-17] MEDS: Potassium Chloride Oral Tablet 10 MEQ 20 MEQ PO (09:57)
[2023-05-17] MEDS: Furosemide 40 MG Tablet PO (09:57)
[2023-05-17] MEDS: Metoprolol Tartrate 50 MG Tablet PO ×2 (09:57→20:59)
[2023-05-17] MEDS: Enoxaparin 100 MG/ML Syringe 90 MG SC ×2 (09:57→20:56)
[2023-05-17] MEDS: Lisinopril 5 MG Tablet PO (09:58)
[2023-05-17] MEDS: Pantoprazole Sodium 20 MG Tablet PO (09:58)
--- NOTE | 2023-05-17 14:56 | CHAPLAIN ---
Type of Pastoral Visit _x__ Initial Visit ___ Follow-up Visit ___ On-call Visit ___ General Patient Visit ___ Spiritual Assessment ___ Family Conference ___ Bereavement ___ Rapid Response ___ Code Blue ___ Other (describe below) Pastoral Care Referral From _x__ Patient ___ Family ___ Nurse ___ Physician ___ Switch Maker ___ Building Custodial Supervisor ___ Other (describe below) Sacrament/Intervention _x__ Active listening ___ Anointing ___ Faith ___ Bereavement ___ Communion ___ Kelly exploration ___ ___ Life review ___ Prayer ___ Reconciliation ___ Sacrament of Sick _x__ Supportive presence ___ Wedding ___ Other (describe below) Pastoral Comments patient asked this boiler or engine operator if the visit to see him meant that he was dying; after assuring the patient that that was not the intention of the visit, he was able to explain his situation and state that he was doing fine; pt expects to be transferred to another hospital; pt admits to having very limited support from family or friends, I'm pretty much to my self; pt declines any need for support at this time
--- NOTE | 2023-05-17 15:06 | DS.PCM_ITS ---
Providers Date of Admission: 05/16/23 Date of Discharge: 05/17/23 Primary Care Physician: No Primary Care Phys Reason For Visit: MYCOTIC ANEURYSMS, CONCERN POSSIBLE INFECTIVE Diagnosis Discharge Diagnosis (1) Elevated troponin: Status: Acute Code(s): R79.89 - Other specified abnormal findings of blood chemistry Plan 1 pulmonary artery mycotic aneurysm #2 elevated troponins not indicative of non-STEMI or STEMI #3 nonischemic cardiomyopathy #4 essential hypertension #5 polysubstance abuse #6 hypoxia-etiology unknown #7 emphysema Medications at Discharge Home Medications furosemide 40 mg tablet (Lasix) 40 mg PO DAILY #30 tabs 05/07/23 lisinopril 5 mg tablet 5 mg PO DAILY #30 tabs 05/07/23 metoprolol tartrate 50 mg tablet 50 mg PO BID #60 tabs 05/07/23 pantoprazole 20 mg tablet,delayed release 20 mg PO DAILY #30 tabs 05/07/23 potassium chloride 10 mEq tablet,extended release 20 meq (2 x 10 mEq) PO DAILY #60 tabs 05/07/23 Hospital Course Operations None Procedures 2-D Echocardiogram Summary of Care Provided Minutes Spent on Discharge: 31 Hospital Course: This 47-year-old white male was seen in the emergency room at [facility] with complaints of increased cough and shortness of breath as well as chest pain. He had recently been hospitalized for treatment of congestive heart failure and has a history of nonischemic cardiomyopathy. Work-up in the emergency room included a CTA of the chest which showed evidence of right pulmonary artery mycotic aneurysms, white blood cell count was elevated at 17.6, patient's troponin was elevated at 127. Patient's EKG did not show any ST-T wave elevations. Patient's tox screen was positive for MDMA, amphetamines, and cannabinoids. Case was discussed with pulmonary medicine, they recommended the patient be transferred to tertiary facility for further care due to the risk of an aneurysm rupture and hemoptysis. [facility] was contacted and agreed to except the patient but there were no beds available, patient remained in the emergency room for several hours until he was finally admitted to PCU for further care. He remained on IV antibiotics and low-flow supplemental oxygen. On 05/17/2023, patient was seen and examined: On examination he appeared his stated age. Vital signs as documented. Skin warm and dry and without overt rashes. Neck without JVD, neck was supple, trachea midline, thyroid was normal. Lungs clear bilaterally, normal air movement was noted. Heart exam notable for regular rhythm, normal sounds and absence of murmurs, rubs or gallops. Abdomen unremarkable and without evidence of organomegaly, masses, or abdominal aortic enlargement. Bowel sounds are present, abdomen is not distended. Extremities nonedematous, no cyanosis was noted, no clubbing was noted. Neuro: Cranial nerves II through XII are grossly intact, no focal motor deficits were noted, sensation to light touch and pinprick intact, motor exam 5/5 throughout. Psych: Patient is alert and oriented x3, he does not appear anxious or depressed, he does not appear agitated. On 05/17/2023, patient was excepted at [facility], a bed was available, he was discharged there for further care. Weight / BMI Weight Weight: 90.6 kg Body Mass Index (BMI) 30.3 ABG / Lab / Microbiology Data 05/17/23 05:14 05/17/23 05:14 Laboratory: Laboratory Results - last 24 hr 05/16/23 04:05: Syphilis Total Ab Non-reactive, HIV 1&2 Antibody Non-Reactive 05/16/23 19:01: Troponin I High Sens 140 H*, Hep Bs Antigen Non-Reactive, Hep Bs Antibody Non-Reactive, Hepatitis C Antibody Non-Reactive 05/16/23 20:45: Troponin I High Sens 132 H* 05/16/23 22:55: MRSA (PCR) POSITIVE H 05/17/23 01:05: Troponin I High Sens 122 H* 05/17/23 05:14: WBC 15.0 H, RBC 4.64, Hgb 11.8 L, Hct 38.4 L, MCV 82.8, MCH 25.4 L, MCHC 30.7 L, RDW Std Deviation 45.4 H, RDW Coeff of King 15.0 H, Plt Count 369, MPV 9.6, Immature Gran % (Auto) 0.300, Neut % (Auto) 71.4 H, Lymph % (Auto) 18.3 L, [place] % (Auto) 9.3, Eos % (Auto) 0.3, Baso % (Auto) 0.4, Absolute Neuts (auto) 10.7 H, Absolute Lymphs (auto) 2.75, Nucleated RBC % 0, Sodium 133 L, Potassium 4.5, Chloride 103, Carbon Dioxide 25.0, Anion Gap 5, BUN 18, Creatinine 1.02, Estim Creat Clear Calc 86.62, Est GFR (MDRD) Af Amer 101, Est GFR (MDRD) Non-Af 83, BUN/Creatinine Ratio 17.6, Glucose 126 H, Calcium 8.3 L, Total Bilirubin 1.40 H, AST 36, ALT 45, Alkaline Phosphatase 100, Total Protein 7.3, Albumin 2.7 L, Globulin 4.6 H, Albumin/Globulin Ratio 0.6 L, Triglycerides 50, Cholesterol 98, LDL Cholesterol 49, VLDL Cholesterol 10, HDL Cholesterol 39 L Microbiology: Microbiology 05/16/23 19:05 Sputum, Expectorated/Coughed Gram Stain - Final 05/17/23 03:40 Urine, Clean Catch Legionella Antigen - Final 05/17/23 03:40 Urine, Clean Catch Streptococcus pneumoniae Antigen (M - Final 05/16/23 19:00 Mucosa - Nasopharyngeal Coronavirus COVID-19 PCR - Final 05/16/23 19:00 Mucosa - Nasopharyngeal Respiratory Panel (PCR) - Final Meaningful Use Info Meaningful Use Diagnoses (Choose all that apply): None applicable Discharge Plan Admission Admit Date/Time: 05/16/23 17:23 Attending Provider: Felice Alston Primary Care Provider: Care Physician,Cleo Primary Consulting Providers: Ese Payne Discharge Orders/Prescriptions Prescriptions: No Action pantoprazole 20 mg Tablet,Delayed Release (Dr/Ec) 20 mg PO DAILY Qty: 30 1RF metoprolol tartrate 50 mg Tablet 50 mg PO BID Qty: 60 1RF furosemide [Lasix] 40 mg tablet 40 mg PO DAILY Qty: 30 1RF potassium chloride 10 mEq tablet extended release 20 meq PO DAILY Qty: 60 1RF lisinopril 5 mg tablet 5 mg PO DAILY Qty: 30 1RF Referrals / Follow Up: Care Physician,No Primary [Primary Care Provider] - Disposition Discharge Orders: Discharge Patient (Routine); Ordered 05/17/23 Ordered By: Dr. Felice Alston Charges/Coding Visit Charges Inpatient E&M: 07750 Disch Hosp >30min
[2023-05-17 19:04] LABS: Vancomycin, Trough Level 19.7 ug/mL (5.0-15.0)
--- NOTE | 2023-05-17 20:42 | PCM.RX.CS ---
Consult Antibiotic Management Pharmacy has been consulted to manage selected antiobiotic: Vancomycin Type of Intervention Type of Consult: Follow-up Suspected Infection Suspected Infection: Skin/Soft tissue Prior Doses of Antibiotics Prior Doses of Antibiotics Received/Current Regimen: Vancomycin 1000 mg given: 05/16 @ 3, 05/17 @ 0353, 05/17 @ 1125 Labs Labs: Sodium 133 mmol/L (136-145) L 05/17/23 05:14 Potassium 4.5 mmol/L (3.5-5.1) 05/17/23 05:14 Chloride 103 mmol/L (98-107) 05/17/23 05:14 Carbon Dioxide 25.0 mmol/L (21.0-32.0) 05/17/23 05:14 Anion Gap 5 (5-15) 05/17/23 05:14 BUN 18 mg/dL (7-18) 05/17/23 05:14 Creatinine 1.02 mg/dL (0.70-1.30) 05/17/23 05:14 Est GFR (MDRD) Af Amer 101 mL/min (>60) 05/17/23 05:14 Est GFR (MDRD) Non-Af 83 mL/min (>60) 05/17/23 05:14 BUN/Creatinine Ratio 17.6 RATIO (10-20) 05/17/23 05:14 Glucose 126 mg/dL (74-106) H 05/17/23 05:14 Vancomycin Trough 19.7 ug/mL (5.0-15.0) H 05/17/23 18:30 Microbiology Microbiology: Microbiology 05/16/23 19:05 Sputum, Expectorated/Coughed Gram Stain - Final 05/17/23 03:40 Urine, Clean Catch Legionella Antigen - Final 05/17/23 03:40 Urine, Clean Catch Streptococcus pneumoniae Antigen (M - Final 05/16/23 19:00 Mucosa - Nasopharyngeal Coronavirus COVID-19 PCR - Final 05/16/23 19:00 Mucosa - Nasopharyngeal Respiratory Panel (PCR) - Final Dosing Weight Weight used for dosin.5 kg Estimated Creatinine Clearance Estimated Creatinine Clearance: 86 Goal Trough Goal Trough: 15-20 mcg/mL Pharmacy Plan for Drug Dosing Pharmacy Plan for Drug Dosing: Vancomycin trough = 19.7, will continue vancomycin 1000 mg IV Q8H with a trough in 2 days Pharmacy Service will continue to monitor and adjust dosing as required. Follow-Up Labs Follow-Up Labs: Trough: Vancomycin Date/Time Labs Ordered Labs to be done on [date and time ordered]: 05/19/23 @ 4114
== END 2023-05-17 21:20 | disposition short-term general hospital (02) | DRG 207 ==
LOC: ED 06:40 → PCU 17:45
PROVIDERS: Admitting Provider Family Medicine; Emergency Provider Emergency Medicine; Visit Provider Internal Medicine
DX: I28.1 Aneurysm of pulmonary artery (principal); I42.8 Other cardiomyopathies; I11.0 Hypertensive heart disease with heart failure; I50.22 Chronic systolic (congestive) heart failure; F15.10 Other stimulant abuse, uncomplicated; J43.9 Emphysema, unspecified; F16.10 Hallucinogen abuse, uncomplicated; K21.9 Gastro-esophageal reflux disease without esophagitis; F12.10 Cannabis abuse, uncomplicated; R09.02 Hypoxemia; R77.8 Other specified abnormalities of plasma proteins; Z87.891 Personal history of nicotine dependence
CPT/HCPCS: 36415; 71046; 71275; 80048; 80053; 80061; 80202; 80307; 81001; 83605; 83735; 84145; 84443; 84484; 85025; 85379; 85610; 85730; 86703; 86706; 86780; 86803; 87040; 87070; 87205; 87340; 87449; 87633; 87635; 87641; 93005; 93308; 94640; 94668; 99284; J7030; J7050; Q9967; A4216; J3490